=== PATIENT | female | born 1955 | race Caucasian/White ===

== ENCOUNTER 2017-05-26 13:42 | Day surgery (SDC) | payer OTHER, SELFPAY ==
--- NOTE | 2017-05-26 05:51 | RAD_ITS ---
STUDY: X-RAY - ABDOMEN/PELVIS REASON FOR EXAM: Female, 61 years old. History of renal calculi. Metastatic bone disease. TECHNIQUE: Two AP supine views of the abdomen and pelvis. COMPARISON: None. FINDINGS: Normal visualized lung bases. There is an abundance of fecal material throughout the colon. The visualized liver, spleen and kidneys are grossly normal in size and morphology. Normal soft tissue structures. Diffuse lytic and sclerotic metastasis involving the visualized lumbar spine as well as the pelvic bones. RAD/Abdomen Single View IMPRESSION: Diffuse bony metastasis. Large amount of fecal material in the colon. No abnormal calcification is seen overlying the kidneys or course of the ureters. Electronically Signed: Geremias Ferrer MD at 14:27 EDT Tel [phone], Service support ,
[2017-05-26 14:48] VITALS: BP 128/55; PULSE 68; RESP 16; TEMP 36.6; O2SAT 97; BMI 24.7
--- NOTE | 2017-05-26 16:00 | CALC_PTH ---
PATIENT: SOFIA ARREDONDO LOC: [facility] – [place] U#:[id number] AGE/SX: 61/F ROOM: RE05/26/[address]: Dr. Lavelle Felix MD : 1955 BED: DIS: 05/26/2017 SPEC #: [id number] RECD: 05/29/17 09:01 STATUS: ISAAC PRIYANKA #: [id number] MARILEE: 05/26/17 16:[address]: Lavelle Felix DEPT: SURGICAL PATHOLOGY RECD BY: Charlie Diallo ENTERED: 05/29/17 10:11 SP TYPE: Calculi OTHR DR: Sindi Resendez, PORTRAIT STUDIO PHOTOGRAPHER-C Tissues: CALCULI Procedures: Surgery Specimen Level I HEADER OPERATION: Cystoscopy, right ureteroscopy, basket extraction stone PRE-OP DIAGNOSIS: Right ureteral calculi TISSUE SUBMITTED: Right ureteral stone GROSS DIAGNOSIS A fragment of stone, clinically right ureteral stone, submitted for analysis. SJ:kadeem 05/30/17 COMMENT The calculus is submitted in its entirety for chemical stone analysis. The results from this study will be reported separately. GROSS DESCRIPTION Received in fixative is one container labeled with the patient's name and designated ureteral stone. The specimen consists of a single, chalky yellow calculus measuring 0.5 x 0.3 x 0.1 cm. The calculus is submitted in its entirety for chemical stone analysis. / AM:kadeem 05/29/17 CPT: 56746
[2017-05-26] MEDS: Cefazolin 2 GM in 0.9% Normal Saline 100 ML IV (16:34)
--- NOTE | 2017-05-26 16:54 | PCM.DC.URO ---
Discharge Diet: Light diet - advance as tolerated Discharge Activity: Return to Normal Activity Call your doctor if you observe: Uncontrolled pain Allergies/Adverse Reactions: Allergies Sulfa (Sulfonamide Antibiotics) Allergy (Verified 05/25/17 14:32) Itching Medications to take at Discharge Calcium Carbonate/Vitamin D3 [Calcium 500-Vit D3 600 Tablet] 1 each PO DAILY 05/25/17 Letrozole [Femara] 2.5 mg PO DAILY 05/25/17 Naproxen Sodium [Aleve] 220 mg PO PRN PRN 05/25/17 Omeprazole 40 mg PO DAILY 05/25/17 Palbociclib [Ibrance] 125 mg PO DAILY 05/25/17 Hydrocodone/Acetaminophen [[place] 5-325 Tablet] 1 ea PO Q4H PRN PRN 5 Days #14 tab 05/26/17 The following prescriptions were given: Hydrocodone/Acetaminophen [[place] 5-325 Tablet] 1 ea PO Q4H PRN PRN 5 Days #14 tab PRN Reason: Pain Primary Care Physician: Sindi Resendez [Primary Care Provider] - Please Follow Up With: Lavelle Felix MD When: June 15 at 9:30 am
--- NOTE | 2017-05-26 16:57 | PCM.OPRPT ---
Report of Operation Date of Procedure: 05/26/17 Pre-Operative Diagnosis: Right ureteral calculi, distal Post-Operative Diagnosis: Same Surgery/Procedure Performed:: Cystoscopy, right ureteroscopy basket extraction of stone. Description of Surgical Findings:: 61-year-old female taken back to the operating room at the smooth induction of general anesthesia we looked around with the fluoroscopy scope but could not identify any stones in the distal ureter on CAT scan she had a stone was seen in the distal ureter just recently. She was placed in dorsal lithotomy position the urethra and vaginal area were prepped and draped in usual sterile fashion went into the bladder and identified the right ureter advanced a wire up the next to the wire went up with a ureteroscope was able to get into the distal ureter in atraumatic fashion I then went up and identified a stone in the distal ureter I used the basket and basket extracted the stone this was sent off as specimen. At this point then the bladder was drained decided not to leave the stent as it was a distal stone the stone was gone and urine was draining fairly easily from the right kidney and ureter. Patient anesthetic was reversed taken back to PACU in good condition will see her back in a few weeks for checkup. Type of Anesthesia:: General Drains: none - Admit VTE Documentation VTE Present on Admission: No VTE Mechan Device Prophylaxis: SCD's VTE Pharm Prophylaxis ordered?: No Reason prophylaxis not ordered:: Treatment Not Indicated
[2017-05-26 16:59] VITALS: BP 128/55; BP 130/67; PULSE 98; RESP 16; TEMP 37; O2SAT 97
[2017-05-26 17:15] VITALS: BP 128/55; BP 131/66; PULSE 88; RESP 16; O2SAT 97
[2017-05-26 17:30] VITALS: BP 128/55; BP 129/72; PULSE 87; RESP 16; O2SAT 97
[2017-05-26 17:44] VITALS: BP 128/55; BP 129/65; PULSE 79; RESP 16; TEMP 36.9; O2SAT 98
[2017-05-26 18:20] VITALS: BP 128/55
[2017-06-07 20:08] LABS: Ca Oxalate, Monohydrate 20 % (.); Calcium Phosphate 80 % (.); Size 5x4x1 mm (.)
== END 2017-05-26 18:30 | disposition home or self-care (01) ==
LOC: SDC 13:42 → AC 14:02
PROVIDERS: Family Provider Nurse Practitioner; PCP Nurse Practitioner; Visit Provider Urology
PROC: (CPT 50590; principal; 2017-05-26 15:50)
DX: N13.2 Hydronephrosis with renal and ureteral calculous obstruction (principal); Z87.442 Personal history of urinary calculi; Z79.899 Other long term (current) drug therapy; K21.9 Gastro-esophageal reflux disease without esophagitis; G25.81 Restless legs syndrome
CPT/HCPCS: 52352; 74018; 82360; 88300; J7120; C1769; J2405

== ENCOUNTER → 2017-06-29 08:16 | Outpatient (CLI) | payer OTHER, SELFPAY ==
--- NOTE | 2017-06-29 08:18 | BI_ITS ---
MAMMOGRAPHY - UNILATERAL SCREENING: LEFT BREAST REASON FOR EXAM: Female, 61 years old. Routine annual screening examination (unilateral). PERTINENT HISTORY: Personal history of breast cancer. Prior right mastectomy with chemotherapy and radiation therapy. Remote bilateral excisional breast biopsies. TECHNIQUE: Digital unilateral breast oskar (3D mammographic acquisition) in the CC and MLO projections. 2-D mediolateral oblique (MLO) and craniocaudad (CC) views of both breasts were obtained. CAD: Full Field Digital Mammography with Computer Added Detection was performed. COMPARISON: Comparison is made with prior study dated June 01, 2016 and May 18, 2015. FINDINGS: Breast Composition: The breasts are heterogeneously dense, which may obscure small masses. There are no dominant masses or suspicious calcifications. No other significant abnormalities are identified. There has been no significant change since the prior study. BI/UNILAT LT SCRN W/CAD IMPRESSION: Stable unilateral screening mammogram. Yearly follow-up mammogram recommended. (A) ASSESSMENT CATEGORY: BIRADS Category 1: Negative. A letter regarding these results will be sent to the patient by the facility within 30 days. Approximately 10% of breast cancers are not detected by mammography. A normal mammogram should not delay biopsy of a clinically suspicious abnormality. [id number] Electronically Signed: Geremias Ferrer MD at 9:50 EDT Tel [phone], Service support ,
== END ==
PROVIDERS: Family Provider Nurse Practitioner; PCP Nurse Practitioner; Visit Provider Internal Medicine Hematology & Oncology
DX: Z12.31 Encounter for screening mammogram for malignant neoplasm of breast (principal); C50.011 Malignant neoplasm of nipple and areola, right female breast; Z17.0 Estrogen receptor positive status [ER+]
CPT/HCPCS: 77061; 77065; 77067; G0279

== ENCOUNTER → 2020-12-11 | Outpatient (CLI) | payer OTHER, SELFPAY ==
--- NOTE | 2020-12-11 | IMM_PTH ---
PATIENT: SOFIA ARREDONDO LOC: [facility] U#:[id number] AGE/SX: 65/F ROOM: RE12/11/[address]: Dr. Wolf Torres MD : 1955 BED: DIS: 12/11/2020 SPEC #: [id number] RECD: 12/14/20 12:53 STATUS: SOUShaila REQ #: [id number] MARILEE: 12/11/20 00:[address]: Wolf Torres DEPT: IMMUNOHISTOCHEMISTRY RECD BY: Sally Whiting ENTERED: 12/14/20 12:55 SP TYPE: IMMUNO OTHR DR: Sindi Resendez, NURSE CASE MANAGEMENT-C Tissues: Axilla, NOS Procedures: RCC (add) NAPSIN A (add) CK20 (add) CK5-6 (add) CK7 (add) CK8 (add) E-CAD (add) HEP PAR (add) HER2 STEPHON (add) MAMM (add) NV (add) TTF1 (add) Pankeratin (add) GATA3 (add) P40 (add) ER (initial) PHYSICIAN & INSTITUTION [place] [phone] SPECIMEN INFORMATION: Tissue Source: Right axillary lesion Clinical Info: Right axillary lesion Specimen Number: [id number] CPT code: 35684, 47891 x15 METHODOLOGY: Deparaffinized sections of prefer/formalin-fixed tissue or PAP/DQ stained slides are incubated with monoclonal/polyclonal antibodies/oligonucleotide probes. Localization is made via biotin free immunoperoxidase method. Appropriate controls are performed and reacted as expected. Results on target cell population are indicated in the following table: RESULTS: ANTIBODY / CLONE RESULT ER (6F11) positive (83%, moderate intensity) NV (1E2) positive (>95%, strong intensity) Her-2neu (CB11) negative (0) E-Cad (ECH-6) negative Mammaglobin (31A5) positive, focal GATA3 (L50-823) positive AE1-3 (AE1/AE3/PCK26) positive CK7 (OV-TL12/30) positive CK8 (07johyI43) positive CK20 (KS20.8) negative TTF-1 (8G7G3/1) negative Napsin A (Rabbit Polyclonal) negative HepPar (OCh1E5) negative RCC (PN-15) negative CK5-6 (D5 & 1684) negative P40 (BC28) negative These tests were developed and their performance characteristics determined by [facility]. They may not have been cleared or approved by the U.S. Food and Drug Administration. The FDA has determined that such clearance or approval is not necessary. The above immunohistochemical/dualISH markers are ordered and reviewed by the Pathologist. INTERPRETATION: Right axillary lesion, excisional biopsy: Invasive carcinoma, involving dermis, consistent with breast primary, invasive lobular carcinoma. SJ:kadeem 12/15/2020
--- NOTE | 2020-12-11 09:45 | AXNB_PTH ---
PATIENT: SOFIA ARREDONDO LOC: [facility] U#:[id number] AGE/SX: 65/F ROOM: RE12/11/[address]: Dr. Wolf Torres MD : 1955 BED: DIS: 12/11/2020 SPEC #: [id number] RECD: 12/11/20 11:25 STATUS: ISAAC REDioni #: [id number] MARILEE: 12/11/20 09:[address]: Wolf Torres DEPT: SURGICAL PATHOLOGY RECD BY: Joanne Wu ENTERED: 12/11/20 12:06 SP TYPE: AX NODE BX OTHR DR: Sindi Resendez, GARMENT PRESSER-C Tissues: Axillary lymph node, NOS Procedures: Surgery Specimen Level IV HEADER OPERATION: Excision right axillary lesion PRE-OP DIAGNOSIS: Right axillary lesion TISSUE SUBMITTED: Right axillary lesion MICROSCOPIC DIAGNOSIS Right axillary lesion, excisional biopsy: Invasive carcinoma involving the dermis, consistent with breast primary, invasive lobular carcinoma. See comment. SJ:rg 12/14/2020 COMMENT Immunohistochemistry ([id number]) supports the above diagnosis. ER/RI/Cbv4hbd studies are being performed on sections of tumor and the results from this study will be reported separately ([id number]). Tumor is present focally at the peripheral margin of the specimen. Please make reference to previous specimens ([id number]) right axillary skin lesion, excisional biopsy with diagnosis of ?invasive carcinoma involving dermis consistent with breast primary, invasive lobular carcinoma? and ([id number]) right breast core biopsy and (C63-2463) right breast mastectomy with diagnosis of ?invasive lobular carcinoma.? Case has been reviewed in consultation with Dr. Garrido who concurs with the above diagnosis. IDC:AM MICROSCOPIC DESCRIPTION Slides are reviewed. GROSS DESCRIPTION Received in fixative is one container labeled with the patient's name and designated right axilla. The specimen consists of a piece of skin with underlying tissue measuring 1.5 x 1 cm and up to 0.7 cm in thickness. The specimen is inked, serially sectioned and submitted entirely in one cassette. / IQRA:kadeem 12/11/20 TC:0 CPT: 81096
== END | disposition home or self-care (01) ==
LOC: LABSPEC 11:44
PROVIDERS: PCP Nurse Practitioner; Referring Provider Surgery; Visit Provider Surgery
DX: C77.3 Secondary and unspecified malignant neoplasm of axilla and upper limb lymph nodes (principal)
CPT/HCPCS: 88305; 88341; 88342

== ENCOUNTER 2021-01-12 09:30 | Outpatient (RCR) | payer OTHER, SELFPAY | END 2021-01-12 23:59 | disposition home or self-care (01) | LOC: NS 09:30 | PROVIDERS: PCP Nurse Practitioner; Visit Provider Nurse Practitioner | DX: Z71.3 Dietary counseling and surveillance (principal); E66.9 Obesity, unspecified; Z68.28 Body mass index [BMI] 28.0-28.9, adult; R73.03 Prediabetes | CPT/HCPCS: 97802; 97803 ==

== ENCOUNTER 2021-01-26 09:28 | Outpatient (RCR) | payer OTHER, SELFPAY | END 2021-02-12 23:59 | LOC: NS 09:28 | PROVIDERS: PCP Nurse Practitioner; Visit Provider Nurse Practitioner | DX: Z71.3 Dietary counseling and surveillance (principal); E66.9 Obesity, unspecified; Z68.28 Body mass index [BMI] 28.0-28.9, adult; R73.03 Prediabetes | CPT/HCPCS: 97803 ==

== ENCOUNTER 2021-02-19 09:19 | Day surgery (SDC) | payer OTHER, SELFPAY ==
[2021-02-19] VITALS (7 sets, daily range): BP systolic 116–133; BP diastolic 62–72; PULSE 57–85; RESP 14–16; TEMP 36.1–36.6; O2SAT 97–100; BMI 28.5
[2021-02-19] MEDS: Lactated Ringers 1,000 ML 15 ML IV (10:11)
--- NOTE | 2021-02-19 10:40 | PCM.HP.BLA ---
History and Physical Date of Admission: 02/19/21 Intake Visit Reasons: PORT PLACEMENT Chief Complaint: port placement Financial Coordinator Required: No Is patient in pain?: No Allergies Sulfa (Sulfonamide Antibiotics) Allergy (Verified 02/15/21 14:26) Itching Medications calcium carbonate-vitamin D3 1 ea PO DAILY 05/25/17 [History Confirmed 02/15/21] ascorbate calcium (vitamin C) 500 mg tablet 500 mg PO DAILY 12/11/20 [History Confirmed 02/15/21] vitamin B complex 1 tab PO DAILY 12/11/20 [History Confirmed 02/15/21] vitamins A,C,B-xbte-mrfihh 14,320 unit-226 mg-200 unit capsule 1 cap PO BID 12/11/20 [History Confirmed 02/15/21] zinc acetate 50 mg (zinc) capsule 50 mg PO DAILY 12/11/20 [History Confirmed 02/15/21] capecitabine 150 mg tablet 150 mg PO BID 02/15/21 [History Confirmed 02/15/21] cranberry 400 mg capsule 400 mg PO DAILY 02/15/21 [History Confirmed 02/15/21] PFSH Medical History Breast cancer Surgical History S/P foot surgery S/P hysterectomy S/P knee surgery S/P right mastectomy S/P shoulder surgery Social History Smoking Status: Never smoker alcohol intake: never HPI HPI HPI: SOFIA ARREDONDO, is a 65 F who presents to the office today for surgical consultation today regarding placement of a port to facilitate chemotherapy. The patient is referred by oncologist Dr. Arias Alejo and a written copy of my surgical consult recommendations will return to him. It is requested that a port be placed prior to the week of February 22. The patient has a history of a right mastectomy with sentinel node biopsy April 25, 2012 for a 1.7 cm invasive lobular carcinoma the right breast. 6 sentinel lymph nodes were negative initially and then on final evaluation were noted to be positive with 3 having micrometastatic disease and 3 macro macro metastatic disease. She underwent a axillary lymph node dissection and 13 additional lymph nodes were all positive. December 2015 she was detected is having bone metastasis. More recently she had a cutaneous nodule the right axilla which was excised and is consistent with invasive carcinoma consistent with a breast primary of lobular carcinoma. She has previously had a left internal jugular port placed. That has subsequently been removed. ROS General General: Yes breast cancer; No weight change, appetite, fatigue, colon cancer or weakness HEENT HEENT: No difficulty swallowing, eye injury, eye surgery, swollen glands or hoarseness Endo Endocrine: No thyroid disease, diabetes mellitus, thyroid cancer, Hair loss, heat intolerance or cold intolerance Skin Skin: No rash or changing moles Breast Breast: No left breast lump, right breast lump, nipple discharge, breast pain, abnormal mammogram, abnormal US or breast enlargement Musc Musculoskeletal: No back problems, arthritis, rheumatoid arthritis, gout or joint pain Cardio Cardiovascular: No murmur, pacemaker, heart disease, atrial fibrillation, high blood pressure, heart attack, heart stent, palpitations, shortness of breat with exertion or chest pain Psych Psychiatric: No depression, anxiety or hearing voices Resp Respiratory: No shortness of breath, No sleep apnea, No cough, No COPD, No asthma, No emphysema and No wheezing Gastro Gastrointestinal: No abdominal pain, No nausea or vomiting, No diarrhea, No constipation, No blood in stool, No acid reflux, No hemorrhoids, No ulcers, No gallbladder problem and No black,tarry stools [place]io Hematologic: No blood thinners, No blood disorders, No bleeding, No anemia and No blood clots Neuro Neurologic: No system reviewed and no additional complaints, except as documented, No as per HPI, No abnormal gait, No abnormal hearing, No abnormal movements, No abnormal speech, No behavioral changes, No burning sensations, No confusion, No convulsions, No disequilibrium, No dizziness, No localized weakness, No frequent falls, No headache(s), No lack of coordination, No loss of vision, No memory loss, No numbness, No other visual disturbances, No radicular pain, No restless legs, No sensory deficit, No syncope, No tingling, No tremor(s), No weakness and No other Exam Const General: cooperative, healthy appearing, comfortable and no acute distress Nutritional Appearance: average body habitus Orientation: alert and awake [facility] Head: normal to inspection Neck Neck: normal visual inspection Other: Supple, nontender, no cervical adenopathy Chest Other: Right mastectomy, left upper chest port site well-healed with some soft tissue loss Resp Effort & Inspection: normal respiratory effort Auscultation: clear to auscultation bilaterally Cardio Rate: regular rate Rhythm: regular rhythm GI Inspection: normal to inspection Palpation: soft Neuro General: patient alert, patient awake and patient oriented x3 Extrem General: normal to inspection Psych Appearance: grossly normal Assessment and Plan Assessment and Plan (1) Breast cancer: Status: Acute Plan - Dr. Wolf Torres MD: Metastatic breast cancer need of IV access for chemotherapy. I propose for the patient a left internal jugular port placement possible right. Described the technique, benefit, risk and alternatives. She has had an opportunity to ask any questions answered. We will schedule and expedite her care. I very much appreciate the kind opportunity to continue to assist with her surgical management Copy: Dr. Arias Torres M.D., F.A.C.S. I have re-examined the patient. There are no clinical changes since date of exam.
--- NOTE | 2021-02-19 10:40 | EX.PCM.DISCH ---
Discharge Instructions Procedure Port-A-Cath Diet Discharge Diet: No restrictions (Pain medication may cause nausea. You should typically eat light foods as you take your pain medication.) Activity Discharge Activity: Return to Normal Activity and May Shower (Leave the bandage on for 2-3 days. When you remove the bandage, leave the steri-strips intact until they fall off.) Additional Activity Instructions:: May not drive, work with heavy equipment, or sign legal documents for [address]. [address] if you are no longer taking narcotic pain medications. You may drive when you are no longer taking pain medications. Dressing / Incision Additional Dressing/Incision Instructions:: Leave the bandage on for 2-3 days. When you remove the bandage, leave the steri-strips intact until they fall off. Follow Up Care Please Follow Up With: Wolf Torres MD When: Call [phone] to make an appointment to be seen in 7 days. Test Results: Test results from this visit will be discussed in further detail at your follow-up appointment, if applicable. Discharge Plan Admission Attending Provider: Wolf Torres Primary Care Provider: Sindi Resendez NP Discharge Orders/Prescriptions Prescriptions: No Action capecitabine [Xeloda] 150 mg tablet 2,000 mg PO BID RF: 0 calcium carbonate-vitamin D3 1 EACH tablet 1 ea PO DAILY RF: 0 pyridoxine (vitamin B6) [Vitamin B-6] 100 mg Tablet 100 mg PO DAILY RF: 0 Ocuvite Tablet 1 tab PO DAILY RF: 0 calcium carb-D3-mag ox-zinc ox 333 mg-133 unit -133 mg-5 mg Tablet 1 tab PO DAILY RF: 0 Probiotic 5 billion cell Capsule, Sprinkle 1 cap PO DAILY RF: 0
--- NOTE | 2021-02-19 11:32 | RAD_ITS ---
STUDY: X-RAY CHEST REASON FOR EXAM: Female, 65 years old. Port placement. TECHNIQUE: Single AP portable view of the chest. COMPARISON: Comparison is made with prior examination dated 05/21/2012. FINDINGS: A right-sided portacatheter has been placed. The tip is at the junction of the superior vena cava and right atrium. The patient is status post right mastectomy and right axillary node dissection. The lungs are clear and expanded. There is no demonstrated pleural abnormality. Normal size heart. Normal mediastinum and jackie. Normal visualized pulmonary arteries. There is atherosclerotic calcification of the aortic arch with tortuosity. Normal visualized thoracic spine. Normal visualized ribs, clavicles, and shoulders. There is no demonstrated abnormality of the visualized soft tissue structures of the upper abdomen. RAD/CXR for Line Placement IMPRESSION: The tip of the left portacatheter is at the junction of the superior vena cava and right atrium. Status post right mastectomy and right axillary rashmi dissection. Electronically Signed: Geremias Ferrer MD at 12:51 EST , Service support ,
[2021-02-19] MEDS: Bupivacaine Mpf 0.5% 30 ML VIAL (12:00)
[2021-02-19] MEDS: Lidocaine 1% (30 ml sdv) 30 ML Vial (12:00)
--- NOTE | 2021-02-19 12:18 | OP.PCM_ITS ---
Problems Associated Problem List Diagnoses (1) Breast cancer: Report of Operation Date of Procedure: 02/19/21 Pre-Operative Diagnosis: Metastatic breast cancer Post-Operative Diagnosis: Same Surgery/Procedure Performed:: Left internal jugular six [place] PowerPort placement Reference [id number] Lot number [id number], expiry date 04/12/2022 Description of Surgical Findings:: Timeout informed consent was obtained. 65-year-old female was taken to the operating placed on the table underwent monitored anesthesia care. The left neck and chest were sterilely prepped and draped. Ancef 2 g were given intravenously. 1% lidocaine mixed 50-50 with 0.5% Marcaine was used as a local anesthetic. A total of 13 cc was used. Ultrasound was used to identify the left internal jugular vein local was instilled under ultrasound guidance. Micropuncture needle inserted micropuncture wire inserted micropuncture sheath inserted 035 J-wire was inserted. Local was instilled down upon the left chest wall. The previous port site transverse incision was elliptically excised. The scar was inspected and discarded. The subcutaneous port was created with electrocautery. The tubing was tunneled from the neck to the chest site. In the sheath dilator was placed over the wire the dilator and wire removed the catheters advanced through the sheath the sheath was split the catheter was positioned to be within the right atrium close to the atrial vena cava junction. It was then amputated and secured to the port with the port attachment device. The port was placed in the pocket and secured there with 2-0 silk. The port site was closed with interrupted 3-0 Vicryl subdermal stitch. The next closed with a #5-0 Vicryl subdermal stitch. The port was accessed and aspirated very easily was flushed with saline and two and half cc cc of heparinized saline. Steri-Strips Telfa OpSite dressings applied. Sponge and instrument and needle counts were reported to the surgeon to be correct. Specimens none. Drains none. Blood loss minimal. The patient was taken to the recovery area in satisfactory addition apparent complication. Stat portable chest x-ray pending. Wolf Torres M.D., F.A.C.S. Surgeon: Wolf Torres Type of Anesthesia: Local MAC Anesthesiologist: Cory Mcguire
== END 2021-02-19 23:59 | disposition home or self-care (01) ==
LOC: SDC 09:20 → AC 09:21
PROVIDERS: PCP Nurse Practitioner; Referring Provider Nurse Practitioner; Visit Provider Surgery
PROC: (CPT 36561; principal; 2021-02-19 11:00)
DX: Z45.2 Encounter for adjustment and management of vascular access device (principal); C79.51 Secondary malignant neoplasm of bone; C77.3 Secondary and unspecified malignant neoplasm of axilla and upper limb lymph nodes; C50.911 Malignant neoplasm of unspecified site of right female breast
CPT/HCPCS: 36561; 00532; 71045; 77001; J7120; J2405

== ENCOUNTER 2021-03-09 11:00 | Outpatient (RCR) | payer OTHER, SELFPAY | END 2021-03-15 23:59 | LOC: NS 11:00 | PROVIDERS: PCP Nurse Practitioner; Visit Provider Nurse Practitioner | DX: Z71.3 Dietary counseling and surveillance (principal); R73.03 Prediabetes; E66.9 Obesity, unspecified; Z68.28 Body mass index [BMI] 28.0-28.9, adult | CPT/HCPCS: 97803 ==

== ENCOUNTER 2021-03-30 09:59 | Outpatient (RCR) | payer OTHER, SELFPAY | END 2021-04-12 23:59 | LOC: NS 09:59 | PROVIDERS: PCP Nurse Practitioner; Referring Provider Nurse Practitioner; Visit Provider Nurse Practitioner | DX: Z71.3 Dietary counseling and surveillance (principal); E66.9 Obesity, unspecified; R73.03 Prediabetes; Z68.28 Body mass index [BMI] 28.0-28.9, adult | CPT/HCPCS: 97803 ==

== ENCOUNTER 2021-05-03 09:57 | Outpatient (RCR) | payer OTHER, SELFPAY | END 2021-05-03 11:56 | disposition home or self-care (01) | LOC: NS 09:57 | PROVIDERS: PCP Nurse Practitioner; Referring Provider Nurse Practitioner; Visit Provider Nurse Practitioner | DX: Z71.3 Dietary counseling and surveillance (principal); E66.9 Obesity, unspecified; R73.03 Prediabetes; Z68.28 Body mass index [BMI] 28.0-28.9, adult | CPT/HCPCS: 97803 ==

== ENCOUNTER 2023-12-30 10:48 | Emergency (ER) | payer MEDICARE, OTHER, SELFPAY ==
[2023-12-30 10:49] VITALS: BP 154/86; PULSE 78; RESP 16; TEMP 36.6; O2SAT 98; BMI 27.6
[2023-12-30 10:50] VITALS: BP 154/86; PULSE 78; RESP 16; TEMP 36.6; O2SAT 98
--- NOTE | 2023-12-30 11:36 | CT_ITS ---
HISTORY: Pain. TECHNIQUE: Helically acquired images were obtained of the abdomen and pelvis without oral or IV contrast. A radiation dose optimization technique was used for this scan. 436 images. COMPARISON: 02/25/2016 FINDINGS: LOWER CHEST: Lung bases unremarkable. Small right and left paraspinal perineural cysts incidentally noted. BOWEL: Bowel including appendix nondilated. Long segment of descending colonic wall thickening with mild pericolonic stranding. Colonic diverticulosis without focal pericolonic inflammatory change. PERITONEUM: No significant free fluid. LIVER: Multiple hepatic cysts measuring up to 4.9 cm in the right lobe, previously 2.8 cm. GALLBLADDER/BILIARY TREE: Small calcified gallstones. SPLEEN/PANCREAS/ADRENAL GLANDS: Nonenlarged. KIDNEYS AND URETERS: No nephrolithiasis or obstructing ureteral calculus. Probable bilateral renal sinus cysts again seen. VESSELS: No abdominal aortic aneurysm. Mild atherosclerosis. 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 PELVIC ORGANS: Absent uterus. BONES: Diffuse sclerotic lesions again seen. CT/Abdomen/Pelvis without Cont IMPRESSION: Long segment of descending colonic wall thickening, concerning for acute colitis. Colonic diverticulosis without acute diverticulitis. Increased size of hepatic cysts. Cholelithiasis. Chronic diffuse osteoblastic metastases. Electronically Signed: Tasia Alexandre MD at 12:55 EST ,
--- NOTE | 2023-12-30 11:37 | EDS_ITS ---
HPI HPI - GI History of Present Illness Chief Complaint: GI Bleed Narrative Narrative: 68-year-old female past medical history of stage IV breast carcinoma, currently on chemotherapy presents with rectal bleeding that began last evening. She relates history that she was outside all day, and had the sensation that she had to have a bowel movement. She got home, walked her dog, and when she went to the bathroom, had an episode of bright red blood per rectum. She had felt near syncopal at that time last evening as well. She denies any chest pain or shortness of breath. She is undergoing chemotherapy infusions, gets them once a week, then has a rest week. Her last infusion was on Monday, and she is not due for another infusion for the next 2 weeks. She presents because of the rectal bleeding, and because of the lightheadedness that she experienced last evening. She states that her carcinoma was originally diagnosed as breast carcinoma, but it has spread everywhere. This includes to her abdomen she states. [facility] Medical History Wears glasses Post-menopausal Cancer Arthritis Kidney stones History of hiatal hernia Non-smoker Shortness of breath on exertion History of edema Breast cancer Home Medications ?Medication ?Instructions ?Recorded ?Last Taken ?Type calcium 500 mg (as 1 ea PO DAILY 05/25/17 Unknown History carbonate)-vitamin D3 15 mcg (600 unit) tablet capecitabine 150 mg tablet (Xeloda) 2,000 mg PO BID 02/15/21 Unknown History Lactobacil.acidophilus-Bifido.animalis 1 cap PO DAILY 02/17/21 Unknown History 5 billion cell sprinkle capsule (Probiotic) calcium 333 mg-vit D3 133 1 tab PO DAILY 02/17/21 Unknown History unit-magnesium 133 mg-zinc 5 mg tablet pyridoxine (vitamin B6) 100 mg 100 mg PO DAILY 02/17/21 Unknown History tablet (Vitamin B-6) vitamin A-vitamin C-vit E-min 1 tab PO DAILY 02/17/21 Unknown History tablet hydrocodone-acetaminophen 5-325mg 1 tab PO Q6H PRN pain 2 days #5 02/19/21 Unknown Rx 5mg-325mg tabs ciprofloxacin HCl 500 mg tablet 500 mg PO BID #14 tabs 12/30/23 Unknown Rx (Cipro) metronidazole 500 mg tablet 500 mg PO TID #21 tabs 12/30/23 Unknown Rx Allergy/AdvReac Type Severity Reaction Status Date / Time iodine Allergy Other Verified 12/30/23 10:49 Sulfa (Sulfonamide Allergy Itching Verified 12/30/23 10:49 Antibiotics) Surgical History Hx of cystoscopy S/P foot surgery S/P hysterectomy S/P shoulder surgery S/P knee surgery S/P right mastectomy Social History Smoking Status: Never smoker alcohol intake: never ROS ROS ED ROS Narrative Constitutional: No fever, no chills. HEENT: No sore throat. No neck pain. No loss of vision. No rhinorrhea. Cardiovascular: No chest pain. No palpitations. No pedal edema. Respiratory: No cough, no shortness of breath. Abdominal: Mild abdominal discomfort abdominal pain. No nausea. No vomiting. No hematemesis. Bright red blood per rectum yesterday evening. Bleeding stopped with most recent bowel movement today. Genitourinary: No dysuria. No hematuria. Musculoskeletal: No myalgias. No arthralgias. Neurologic: No headaches. No dizziness. Positive lightheadedness last evening. Skin: No rash. No change in color. Psychiatric: No depression. No anxiety. EXAM Physical Exam Const Vital Signs: 12/30/23 10:49 12/30/23 10:50 12/30/23 12:24 Temperature 97.9 F 97.9 F Temperature Source Oral Oral Pulse Rate 78 78 Pulse Rate [Lying] 68 Respiratory Rate 16 16 Blood Pressure 154/86 H 154/86 H Blood Pressure [Lying] 156/62 H Blood Pressure Mean 108 108 Blood Pressure Mean [Lying] 93 Pulse Ox 98 98 Oxygen Delivery Method Room Air 12/30/23 12:27 12/30/23 12:29 12/30/23 12:29 Temperature Temperature Source Pulse Rate 70 Pulse Rate [Lying] 70 95 Respiratory Rate 16 Blood Pressure 153/74 H Blood Pressure [Lying] 153/74 H 157/87 H Blood Pressure Mean 100 Blood Pressure Mean [Lying] 100 110 Pulse Ox 97 Oxygen Delivery Method Room Air 12/30/23 14:25 Temperature Temperature Source Pulse Rate 68 Pulse Rate [Lying] Respiratory Rate 16 Blood Pressure 154/68 H Blood Pressure [Lying] Blood Pressure Mean 96 Blood Pressure Mean [Lying] Pulse Ox 100 Oxygen Delivery Method Room Air MDM MDM MDM Narrative Medical decision making narrative: Differential diagnosis includes hemorrhoidal bleeding versus diverticular bleeding versus colonic mass bleeding. Given her near syncope, also in the differential diagnosis would be anemia versus electrolyte imbalance versus dehydration. She not tachycardic here. Additionally, her bleeding has ceased. Initially, she declines rectal examination/anoscopy. I find this reasonable because her bleeding has ceased, but it was bright red blood per rectum. Baseline laboratories will be obtained as well as CT without contrast given an iodine allergy. I reviewed her laboratory work and she is neutropenic at 4.3 consistent with her recent chemotherapy. Hemoglobin is 9.9, down from previous, but this was over 4 years ago when compared to prior labs. Potassium slightly low at 3.3 which I think is nonspecific, BUN of 10 and creatinine 0.68 so I doubt dehydration or upper GI bleeding. LFTs grossly unremarkable. CT of the abdomen and pelvis without contrast does show mild thickening of the colonic wall of the descending colon. There is concern for colitis. I do not feel this is an ischemic colitis, as she does not have pain out of proportion, and does not really have tenderness in the left flank. Her main concern was the rectal bleeding which can happen with her colitis and she also has diverticulosis. The bleeding has stopped. Orthostatics were performed and she had a slight increase in her heart rate so she was bolused normal saline intravenously. She was given her first doses of Cipro and Flagyl here in the emergency department and prescriptions were written to take over the next week. At this point in time, I discussed observation or admission with her and through shared decision making, she would like to try outpatient medications. I feel she be discharged to follow-up with gastroenterology and/or hematology oncology or her primary care provider. Return instructions to the emergency department were reviewed. Disposition is discharged home in stable condition. History & Record Review Discussion w/independent historian: Patient Additional record(s) reviewed:: Prior labs Lab Data Attestation: I reviewed the patient's lab results. Labs: Laboratory Results - last 24 hr 12/30/23 11:46 WBC 4.3 L RBC 3.66 L Hgb 9.9 L Hct 31.7 L MCV 86.6 MCH 27.0 MCHC 31.2 L RDW Std Deviation 57.5 H RDW Coeff of Elder 18.5 H Plt Count 380 MPV 9.8 Immature Gran % (Auto) 0.200 Neut % (Auto) 57.7 Lymph % (Auto) 34.4 [place] % (Auto) 5.6 Eos % (Auto) 1.4 Baso % (Auto) 0.7 Absolute Neuts (auto) 2.5 Absolute Lymphs (auto) 1.46 Nucleated RBC % 0 Sodium 140 Potassium 3.3 L Chloride 107 Carbon Dioxide 28.0 Anion Gap 5 BUN 10 Creatinine 0.68 Estim Creat Clear Calc 64.92 Est GFR (MDRD) Af Amer 111 Est GFR (MDRD) Non-Af 92 BUN/Creatinine Ratio 14.8 Glucose 109 H Calcium 8.2 L Total Bilirubin 1.30 H AST 16 ALT 22 Alkaline Phosphatase 58 Total Protein 6.4 Albumin 3.2 Globulin 3.2 Albumin/Globulin Ratio 1.0 Radiography Diagnostic Testing: Clinical Impression(s) from Imaging Studies Abdomen/Pelvis CT 12/30/23 11:36 IMPRESSION: Long segment of descending colonic wall thickening, concerning for acute colitis. Colonic diverticulosis without acute diverticulitis. Increased size of hepatic cysts. Cholelithiasis. Chronic diffuse osteoblastic metastases. Electronically Signed: Tasia Alexandre MD at 12:55 EST , Discharge Plan Triage Chief Complaint: GI Bleed ED Provider: Paul Larson Dx/Rx/DC Orders Clinical Impression: Colitis, Rectal bleeding Instructions: ED Understanding Colitis, ED Lower GI Bleeding (Stable) Prescriptions: New ciprofloxacin HCl [Cipro] 500 mg tablet 500 mg PO BID Qty: 14 0RF metronidazole 500 mg tablet 500 mg PO TID Qty: 21 0RF No Action capecitabine [Xeloda] 150 mg tablet 2,000 mg PO BID Rx Instructions: administer with 3 - 500 mg tabs for each dose; must give with water 30 minutes after a meal calcium carbonate-vitamin D3 1 EACH tablet 1 ea PO DAILY pyridoxine (vitamin B6) [Vitamin B-6] 100 mg Tablet 100 mg PO DAILY vitamin A-vitamin C-vit E-min Tablet 1 tab PO DAILY calcium carb-D3-mag ox-zinc ox 333 mg-133 unit -133 mg-5 mg Tablet 1 tab PO DAILY Probiotic 5 billion cell Capsule, Sprinkle 1 cap PO DAILY hydrocodone-acetaminophen 5-325 mg tablet 1 tab PO Q6H PRN (Reason: pain) 2 Days Qty: 5 0RF Primary Care Provider: Rajinder Gonzalez Referrals: Arias Alejo DO [Med Staff - Active Staff] - 3-5 Days Ramírez Euceda DO [Med Staff - Active Staff] - 1 Week Rajinder Gonzalez MD [Primary Care Provider] - 3-5 Days Activity Restrictions/Additional Instructions: Return with fever, increased pain, increased rectal bleeding, new or worsening symptoms. Print Language: Jamaican Disposition Disposition: Home, Self Care Discharge Date/Time: 12/30/23 14:30
[2023-12-30 12:01] LABS: Absolute Lymphocyte Count 1.46 X10^3/uL (0.83-4.51); Absolute Neutrophil Count 2.5 X10^3/uL (2.0-7.7); Basophil# 0.03 X10^3/uL; Basophil% 0.7 % (0-1); Eosinophil# 0.06 X10^3/uL; Eosinophils% 1.4 % (0-5); Hematocrit 31.7 % (37-47); Hemoglobin 9.9 g/dL (12.0-15.0); Lymphocyte # 1.46 X10^3/ul (0.83-4.51); Lymphocyte % 34.4 % (19-41); Mean Corp Hgb Conc 31.2 g/dL (32-36); Mean Corpuscular Volume 86.6 fL (81-99); Mean Platelet Vol. 9.8 fl (6.2-12.0); Monocyte# 0.24 X10^3/uL; Monocyte% 5.6 % (0-10); NRBC Flagged by Analyzer 0 % (0-5); Neutrophil # 2.45 X10^3/uL (2.7-7.7); Neutrophil % 57.7 % (47-70); Platelet Count 380 K/mm3 (150-450); RBC Distribution Width CV 18.5 % (11.6-14.6); RBC Distribution Width SD 57.5 fl (35.1-43.9); Red Blood Count 3.66 M/mm3 (4.2-5.4); White Blood Count 4.3 K/mm3 (4.4-11.0)
[2023-12-30 12:16] LABS: AST(SGOT) 16 U/L (15-37); Alanine Aminotransfer ALT/SGPT 22 U/L (13-56); Albumin, Serum 3.2 g/dL (3.2-5.0); Alkaline Phosphatase 58 U/L (45-117); Anion Gap 5 (5-15); BUN 10 mg/dL (7-18); BUN/Creat Ratio 14.8 RATIO (10-20); Calcium,Total 8.2 mg/dL (8.5-10.1); Chloride 107 mmol/L (98-107); Creatinine, Serum 0.68 mg/dL (0.55-1.02); EST Glomerular Filtration Rate 92 mL/min (>60); Est Glom Filt Rate - Afr Amer 111 mL/min (>60); Estimated Creatinine Clearance 64.92 ml/min; Globulin 3.2 g/dL (2.2-4.2); Glucose 109 mg/dL (74-106); Potassium 3.3 mmol/L (3.5-5.1); Protein, Total 6.4 g/dL (6.4-8.2); Sodium Level 140 mmol/L (136-145)
[2023-12-30 12:24] VITALS: BP 156/62; PULSE 68
[2023-12-30 12:27] VITALS: BP 153/74; PULSE 70
[2023-12-30 12:29] VITALS: BP 153/74; BP 157/87; PULSE 70; PULSE 95; RESP 16; O2SAT 97
[2023-12-30] MEDS: 0.9% Normal Saline (1000mL) 1,000 ML 999 ML IV (12:51)
[2023-12-30] MEDS: metroNIDAZOLE 500 MG Tablet PO (13:39)
[2023-12-30] MEDS: Ciprofloxacin 500 MG Tablet PO (13:39)
[2023-12-30 14:25] VITALS: BP 154/68; PULSE 68; RESP 16; O2SAT 100
[2023-12-30] MEDS: 0.9 % NaCl (Sterile) Posiflush 10 mL IV (14:27)
== END 2023-12-30 14:30 | disposition home or self-care (01) ==
PROVIDERS: Emergency Provider Emergency Medicine; PCP Family Medicine; Visit Provider Emergency Medicine
DX: K52.9 Noninfective gastroenteritis and colitis, unspecified (principal); C50.919 Malignant neoplasm of unspecified site of unspecified female breast; K57.30 Diverticulosis of large intestine without perforation or abscess without bleeding; D70.1 Agranulocytosis secondary to cancer chemotherapy; Z88.2 Allergy status to sulfonamides; Z90.11 Acquired absence of right breast and nipple; Z79.899 Other long term (current) drug therapy; Z91.041 Radiographic dye allergy status
CPT/HCPCS: 36591; 74176; 80053; 85025; 96360; 99284; A4216

== ENCOUNTER → 2024-01-18 | Outpatient (CLI) | payer MEDICARE, OTHER, SELFPAY ==
[2024-01-18 12:02] LABS: Absolute Lymphocyte Count 0.77 X10^3/uL (0.83-4.51); Absolute Neutrophil Count 4.1 X10^3/uL (2.0-7.7); Basophil# 0.02 X10^3/uL; Basophil% 0.4 % (0-1); Eosinophil# 0.02 X10^3/uL; Eosinophils% 0.4 % (0-5); Hematocrit 31.6 % (37-47); Hemoglobin 9.9 g/dL (12.0-15.0); Lymphocyte # 0.77 X10^3/ul (0.83-4.51); Lymphocyte % 15.5 % (19-41); Mean Corp Hgb Conc 31.3 g/dL (32-36); Mean Corpuscular Hgb 26.8 pg (27.0-32.0); Mean Corpuscular Volume 85.4 fL (81-99); Mean Platelet Vol. 9.8 fl (6.2-12.0); Monocyte# 0.09 X10^3/uL; Monocyte% 1.8 % (0-10); NRBC Flagged by Analyzer 0.6 % (0-5); Neutrophil # 4.06 X10^3/uL (2.7-7.7); Neutrophil % 81.7 % (47-70); Platelet Count 411 K/mm3 (150-450); RBC Distribution Width CV 18.2 % (11.6-14.6); RBC Distribution Width SD 54.6 fl (35.1-43.9)
== END | disposition home or self-care (01) ==
PROVIDERS: PCP Family Medicine; Referring Provider Student in an Organized Health Care Education/Training Program; Visit Provider Student in an Organized Health Care Education/Training Program
DX: D64.9 Anemia, unspecified (principal)
CPT/HCPCS: 36591; 85025; A4216

== ENCOUNTER → 2024-02-27 | Outpatient (CLI) | payer MEDICARE, OTHER, SELFPAY ==
--- NOTE | 2024-02-27 11:40 | CYSPIN_PTH ---
PATIENT: SOFIA ARREDONDO LOC: [facility] U#:[id number] AGE/SX: 68/F ROOM: RE02/27/[address]: Dr. Ruma Rodriguez MD : 1955 BED: DIS: 02/27/2024 SPEC #: [id number] RECD: 02/28/24 07:37 STATUS: ISAAC REDioni #: [id number] MARILEE: 02/27/24 11:[address]: Ruma Rodriguez DEPT: CYTOLOGY RECD BY: Joanne Wu ENTERED: 02/28/24 07:37 SP TYPE: CYSPIN FL OTHR DR: Dr. Rajinder Gonzalez MD Tissues: Urine Procedures: Pap Stain (control) Special Stain Group II Cytospin Fluid HEADER OPERATION: Not noted PRE-OP DIAGNOSIS: Gross hematuria TISSUE SUBMITTED: Urine for cytology DIAGNOSIS CYTOLOGY Urine for cytology (cytospins): Negative for high grade urothelial carcinoma (NHGUC), Frida Category System II. See comment. [email or web address] 02/28/2024 COMMENT Numerous red blood cells are noted. The specimen predominantly consists of squamous epithelial cells. The Frida System for urine cytology diagnostic categorization was used in the evaluation of this case. CYTOLOGY STUDY Slides are reviewed. CYTOLOGY GROSS Received is 15 ml of [id number] fluid labeled with the patient's name and and designated per the requisition as urine. Submitted for cytology preparation. Mr 02/28/2024 TC:5 CPT: 28919
[2024-02-27 17:52] LABS: Cytology, Body Fluid / CSF SEE PATHOLOGY REPORT
== END | disposition home or self-care (01) ==
PROVIDERS: PCP Family Medicine; Referring Provider Urology; Visit Provider Urology
DX: R31.0 Gross hematuria (principal)

== ENCOUNTER 2024-05-21 12:28 | Inpatient (IN) | payer MEDICARE, OTHER, SELFPAY ==
[2024-05-21 12:28] VITALS: BP 158/83; PULSE 107; RESP 16; TEMP 36.6; O2SAT 98; BMI 27.3
--- NOTE | 2024-05-21 12:47 | ED.VIS.GI ---
HPI HPI - GI History of Present Illness Chief Complaint: Abd Pain Informant: patient Abdominal Pain/Flank Pain Onset: Weeks (1) Context: Gradual Onset Timing: Waxes and wanes Quality: Cramping Location: Diffuse Worsened by: Food Relieved by: Nothing Nausea/Vomiting/Emesis GI Symptom: Positive for Nausea; Negative for Vomiting Diarrhea/Melena/Hematochezia GI Symptom: Positive for Diarrhea; Negative for Melena or Hematochezia Associated Symptoms Associated Symptoms: Positive for Frequency; Negative for Dysuria or Hematuria Narrative Narrative: Patient presents with abdominal pain and nausea that began approximately 1 week ago. Patient states that it has been waxing and waning over that time. Patient states she has had intermittent abdominal pain for the past several months but usually does not last very long. Patient describes her pain as cramping. Patient states it is diffuse across her abdomen. Patient states it gets worse after eating. Patient admits to some nausea but denies any vomiting. Patient admits to some diarrhea but denies any melena or hematochezia. Patient admits to some urinary frequency but denies any dysuria or hematuria. Patient denies any fevers or chills. [facility] Medical History Wears glasses Post-menopausal Cancer Arthritis Kidney stones History of hiatal hernia Non-smoker Shortness of breath on exertion History of edema Breast cancer Home Medications ?Medication ?Instructions ?Recorded ?Last Taken ?Type calcium 500 mg (as 1 ea PO DAILY 05/25/17 Unknown History carbonate)-vitamin D3 15 mcg (600 unit) tablet capecitabine 150 mg tablet (Xeloda) 2,000 mg PO BID 02/15/21 Unknown History Lactobacil.acidophilus-Bifido.animalis 1 cap PO DAILY 02/17/21 Unknown History 5 billion cell sprinkle capsule (Probiotic) calcium 333 mg-vit D3 133 1 tab PO DAILY 02/17/21 Unknown History unit-magnesium 133 mg-zinc 5 mg tablet pyridoxine (vitamin B6) 100 mg 100 mg PO DAILY 02/17/21 Unknown History tablet (Vitamin B-6) apixaban 5 mg tablet (Eliquis) 5 mg PO BID 05/21/24 05/21/24 History cephalexin 250 mg capsule 250 mg PO QHS 05/21/24 05/20/24 History duloxetine 60 mg capsule,delayed 60 mg PO DAILY 05/21/24 05/21/24 History release mirabegron 50 mg tablet,extended 50 mg PO DAILY 05/21/24 05/21/24 History release 24 hr (Myrbetriq) timolol maleate 0.5 % eye drops 1 drp ophthalmic (eye) BID 05/21/24 05/21/24 History Allergy/AdvReac Type Severity Reaction Status Date / Time iodine Allergy Other Verified 05/21/24 12:29 Sulfa (Sulfonamide Allergy Itching Verified 05/21/24 12:29 Antibiotics) Surgical History Hx of cystoscopy S/P foot surgery S/P hysterectomy S/P shoulder surgery S/P knee surgery S/P right mastectomy Social History Smoking Status: Never smoker alcohol intake: never ROS ROS ED Constitutional Constitutional ED: Denies chills or fever(s) Eyes Eyes: Denies blurry vision or change in vision ENT ENT ED: Denies rhinorrhea or sore throat Cardiovascular Cardiovascular: Denies chest pain or palpitations Respiratory/Chest Respiratory/Chest: Denies cough or dyspnea Gastrointestinal Gastrointestinal: Reports abdominal pain, diarrhea and nausea; Denies melena or vomiting Genitourinary Genitourinary ED: Denies dysuria or hematuria Musculoskeletal Musculoskeletal: Reports back pain; Denies neck pain Integumentary Denies abscess or rash Neurologic Neurologic: Reports headache(s); Denies weakness Allergic/Immunologic Allergic/Immunologic ED: Denies mouth swelling or urticaria EXAM Physical Exam Const Vital Signs: 05/21/24 12:28 05/21/24 14:00 Temperature 97.8 F Temperature Source Oral Pulse Rate 107 H 82 Respiratory Rate 16 18 Blood Pressure 158/83 H 129/74 H Blood Pressure Mean 108 92 Pulse Ox 98 98 Oxygen Delivery Method Room Air Room Air Positive well nourished and well developed General Appearance ED: well developed and NAD HEENT Reports moist mucous membranes Neck supple and no JVD Resp normal respiratory effort and clear to auscultation bilaterally Cardio regular rate and regular rhythm GI non-distended Palpation: soft and tender epigastric, LLQ, RLQ, LUQ, RUQ, periumbilical and suprapubic; Negative for guarding or rebound tenderness present Extremity full ROM General Extremety ED: Negative for edema or tenderness General Extremity: Negative for edema Neuro CN's II-XII intact bilaterally, moves all extremities and no sensory deficits noted Motor Exam: strength 5/5 throughout Psych mental status grossly normal MDM MDM MDM Narrative Medical decision making narrative: Differential diagnosis includes foods cholecystitis, cholelithiasis, appendicitis, gastroenteritis, colitis, urinary tract infection, pyelonephritis, pancreatitis, gastroesophageal reflux disease, and chemotherapy side effect. CT scan of the abdomen and pelvis will be obtained to assess for cholecystitis, cholelithiasis, appendicitis, and colitis. CBC will be obtained to assess for leukocytosis and anemia. Comprehensive metabolic profile will be obtained to assess for hepatic function, renal function, and electrolyte abnormality. Lipase will be obtained to assess for pancreatitis. Urinalysis will be obtained to assess for urinary tract infection and hematuria. Lab Data Attestation: I reviewed the patient's lab results. Lab results narrative: CBC was reviewed. White blood cell count was slightly low at 4.1. Hemoglobin was slightly low at 11.2 and hematocrit was 34.6. Platelets were normal. Comprehensive metabolic profile was reviewed. Glucose was slightly elevated at 125. The remainder was within normal limits. Lipase was reviewed and was normal at 26. Urinalysis was reviewed. There is no evidence of urinary tract infection or hematuria. Labs: Laboratory Results - last 24 hr 05/21/24 05/21/24 13:15 14:01 WBC 4.1 L RBC 4.13 L Hgb 11.2 L Hct 34.6 L MCV 83.8 MCH 27.1 MCHC 32.4 RDW Std Deviation 48.6 H RDW Coeff of Elder 16.2 H Plt Count 389 MPV 9.3 Immature Gran % (Auto) 0.500 Neut % (Auto) 52.4 Lymph % (Auto) 34.0 [place] % (Auto) 11.4 H Eos % (Auto) 0.5 Baso % (Auto) 1.2 H Absolute Neuts (auto) 2.2 Absolute Lymphs (auto) 1.40 Nucleated RBC % 0 Sodium 140 Potassium 3.7 Chloride 103 Carbon Dioxide 25.8 Anion Gap 11 BUN 10 Creatinine 0.64 L Estim Creat Clear Calc 64.73 Est GFR (MDRD) Non-Af 96 BUN/Creatinine Ratio 14.9 Glucose 125 H Calcium 8.4 Total Bilirubin 0.42 AST 28 ALT 23 Alkaline Phosphatase 63 Total Protein 6.2 Albumin 3.6 Globulin 2.6 Albumin/Globulin Ratio 1.4 Lipase 26 Urine Color Straw Urine Clarity Clear Urine pH 7.0 Ur Specific Moyers 1.005 Urine Protein 15 H Urine Glucose (UA) Normal Urine Ketones Negative Urine Occult Blood Negative Urine Nitrite Negative Urine Bilirubin Negative Urine Urobilinogen Normal Ur Leukocyte Esterase Negative Urine RBC 0 SEEN Urine WBC 0 SEEN Ur Squamous Epith Cells 0 SEEN Urine Bacteria 0 SEEN Urine Mucus 0 SEEN Radiography Diagnostic Testing: Clinical Impression(s) from Imaging Studies Abdomen/Pelvis CT 05/21/24 13:40 IMPRESSION: 1. Findings suggest at least partial small bowel obstruction with or without superimposed ileus. Difficult to identify a single discrete transition point in the absence of IV or p.o. contrast. Evaluation of the bowel is additionally limited due to the presence of free-fluid. Consider small-bowel follow-through. 2. Diffuse osseous metastatic disease. Small volume free intraperitoneal fluid could be malignant given history of neoplasm, with questioned early peritoneal carcinomatosis. Recommend clinical/oncologic follow-up. 3. Nonspecific nodules in the LEFT lung base up to 6 mm. Hepatic cysts and additional subcentimeter hypodensities too small to definitively characterize. Given reported history of malignancy, metastasis cannot be excluded. Recommend clinical/oncologic follow-up. Comparison with any available outside imaging may be helpful to establish stability. 4. 10 mm likely splenic artery aneurysm, not well delineated in the absence of IV contrast. 5. Appendix not identified. No convincing inflammation in the region. 6. Additional description as above. Reading Location: [facility] CT scan of the abdomen and pelvis was obtained. There is at least a partial small bowel obstruction. A single discrete transition point was unable to be obtained. There is some free fluid noted. There is also osseous metastatic disease. There are nodules in the left lung base up to 6 mm. Hepatic cysts and subcentimeter hypodensities. There is a 10 mm splenic artery aneurysm. This was interpreted by the radiologist and was also independently reviewed by myself. Treatment and Re-Evaluation :: Patient was given IV fluids, morphine, and Zofran. Patient was feeling better on reevaluation. Patient was advised of her findings. Case was discussed with Dr. Mast from general surgery. He recommended pretreating the patient with Benadryl and steroids and obtaining CT scan with oral and IV contrast. He also recommended admitting the patient to the hospitalist service with a consult to surgery service. Case was discussed with the hospitalist. He will admit the patient to his service. Patient understood and was agreeable with the plan. All questions were answered. Discharge Plan Triage Chief Complaint: Abd Pain ED Provider: Tobi Cummings Dx/Rx/DC Orders Clinical Impression: Partial small bowel obstruction, Breast cancer, Metastatic cancer Prescriptions: No Action capecitabine [Xeloda] 150 mg tablet 2,000 mg PO BID Rx Instructions: administer with 3 - 500 mg tabs for each dose; must give with water 30 minutes after a meal calcium carbonate-vitamin D3 1 EACH tablet 1 ea PO DAILY pyridoxine (vitamin B6) [Vitamin B-6] 100 mg Tablet 100 mg PO DAILY vitamin A-vitamin C-vit E-min Tablet 1 tab PO DAILY calcium carb-D3-mag ox-zinc ox 333 mg-133 unit -133 mg-5 mg Tablet 1 tab PO DAILY Probiotic 5 billion cell Capsule, Sprinkle 1 cap PO DAILY hydrocodone-acetaminophen 5-325 mg tablet 1 tab PO Q6H PRN (Reason: pain) 2 Days Qty: 5 0RF ciprofloxacin HCl [Cipro] 500 mg tablet 500 mg PO BID Qty: 14 0RF metronidazole 500 mg tablet 500 mg PO TID Qty: 21 0RF Primary Care Provider: Rajinder Gonzalez Referrals: Rajinder Gonzalez MD [Primary Care Provider] - Print Language: Slovak Disposition Disposition: Acute Care Hospital [facility]
[2024-05-21] MEDS: Ondansetron 4 MG/2 ML Vial IV (13:19)
[2024-05-21] MEDS: 0.9% Normal Saline (1000mL) 1,000 ML 999 ML IV (13:19)
[2024-05-21] MEDS: Morphine 4 MG/ML Syringe IV ×2 (13:20→22:00)
[2024-05-21 13:24] LABS: Absolute Neutrophil Count 2.2 X10^3/uL (2.0-7.7); Basophil# 0.05 X10^3/uL; Basophil% 1.2 % (0-1); Eosinophil# 0.02 X10^3/uL; Eosinophils% 0.5 % (0-5); Hematocrit 34.6 % (37-47); Hemoglobin 11.2 g/dL (12.0-15.0); Mean Corp Hgb Conc 32.4 g/dL (32-36); Mean Corpuscular Hgb 27.1 pg (27.0-32.0); Mean Corpuscular Volume 83.8 fL (81-99); Mean Platelet Vol. 9.3 fl (6.2-12.0); Monocyte# 0.47 X10^3/uL; Monocyte% 11.4 % (0-10); NRBC Flagged by Analyzer 0 % (0-5); Neutrophil # 2.16 X10^3/uL (2.7-7.7); Neutrophil % 52.4 % (47-70); Platelet Count 389 K/mm3 (150-450); RBC Distribution Width CV 16.2 % (11.6-14.6); RBC Distribution Width SD 48.6 fl (35.1-43.9); Red Blood Count 4.13 M/mm3 (4.2-5.4); White Blood Count 4.1 K/mm3 (4.4-11.0)
--- NOTE | 2024-05-21 13:40 | CT_ITS ---
PROCEDURE: ABDOMEN/PELVIS WITHOUT CONT 05/21/2024 REASON FOR EXAM: PAIN TECHNIQUE: Abdomen and pelvis CT without intravenous contrast. Noncontrast technique limits evaluation of the abdominal and pelvic viscera. Coronal and Sagittal reformats were generated. One or more dose reduction techniques were used (e.g., Automated exposure control, adjustment of the mA and/or kV according to patient size, use of iterative reconstruction technique). PATIENT PREPARATION: Per protocol ORAL CONTRAST TYPE: None. AMOUNT: mL RADIATION DOSE SUMMARY: CTDlvol: 8.37 mGy DLP: 451.67 mGycm One or more dose reduction techniques were used (e.g., Automated exposure control, adjustment of the mA and/or kV according to patient size, use of iterative reconstruction technique). COMPARISON: None FINDINGS: Note that evaluation of the abdominopelvic viscera, vasculature, and remaining soft tissues is limited in the absence of IV contrast. Lung bases: Mild atelectasis/scarring. Coronary atherosclerosis and/or stent. Suspect a minimally imaged tip of a central venous catheter in the SVC near the superior cavoatrial junction. RIGHT mastectomy. Nodules in the LEFT lung base up to 6 mm. Liver: Cysts and additional tiny hypodensities too small to characterize. Spleen: Unremarkable. Gallbladder: Cholelithiasis. Pancreas: Grossly unremarkable.. Adrenals: Unremarkable. Kidneys: Renal sinus cysts bilaterally. No hydronephrosis. Favor a vascular phlebolith immediately adjacent to the LEFT ureter rather than a distal ureteral calculus in the absence of hydroureter or hydronephrosis.. Bowel: Distended stomach. Relatively decompressed proximal duodenum. Alternating areas of small bowel dilatation more distally up to 3.4 cm in diameter with somewhat distorted appearance in some areas. Difficult to trace small bowel loops, without single dominant transition point identified. Fecalized contents at some levels, suggesting slow transit. No definite inflammation allowing for the limitation of adjacent free fluid. Diverticulosis. Appendix not definitively identified. No convincing inflammation in the RIGHT lower quadrant. Lymph nodes: Unremarkable. Vasculature: Trace calcific atherosclerosis. 10 mm peripherally calcified likely splenic artery aneurysm suboptimally delineated in the absence of IV contrast. Peritoneum: Small volume free intraperitoneal fluid. Questionable peritoneal nodularity/thickening in the LEFT upper quadrant and pelvis, not well evaluated in the absence of IV contrast. Bladder: Underdistended and suboptimally evaluated, grossly unremarkable. Reproductive Organs: Hysterectomy. Body Wall: Unremarkable. Bones: Diffuse sclerotic osseous metastasis. Mild lower thoracic spondylosis. Sacral Tarlov cysts. CT/Abdomen/Pelvis without Cont IMPRESSION: 1. Findings suggest at least partial small bowel obstruction with or without peralta perimposed ileus. Difficult to identify a single discrete transition point in the absence of IV or p.o. contrast. Evaluation of the bowel is additionally limited due to the presence of free-fluid. Consider small-bowel follow-through. 2. Diffuse osseous metastatic disease. Small volume free intraperitoneal fluid could be malignant given history of neoplasm, with questioned early peritoneal carcinomatosis. Recommend clinical/oncologic follow-up. 3. Nonspecific nodules in the LEFT lung base up to 6 mm. Hepatic cysts and maria d tional subcentimeter hypodensities too small to definitively characterize. Given reported history of malignancy, metastasis ca nnot be excluded. Recommend clinical/oncologic follow-up. Comparison with any available outside imaging may be helpful to esta blish stability. 4. 10 mm likely splenic artery aneurysm, not well delineated in the absence of IV contrast. 5. Appendix not identified. No convincing inflammation in the region. 6. Additional description as above. Reading Location: [id number]
[2024-05-21 13:52] LABS: ALB/GLOB Ratio 1.4 RATIO (0.9-2.4); AST(SGOT) 28 U/L (<=31); Alanine Aminotransfer ALT/SGPT 23 U/L (<=34); Albumin, Serum 3.6 g/dL (3.4-4.8); Alkaline Phosphatase 63 U/L (35-104); Anion Gap 11 (5-15); BUN 10 mg/dL (4-19); BUN/Creat Ratio 14.9 RATIO (10-20); Calcium,Total 8.4 mg/dL (7.6-11.0); Carbon Dioxide 25.8 mmol/L (21.0-32.0); Chloride 103 mmol/L (98-108); Creatinine, Serum 0.64 mg/dL (0.70-1.20); EST Glomerular Filtration Rate 96 (>60); Estimated Creatinine Clearance 64.73 ml/min (50-250); Globulin 2.6 g/dL (2.2-4.2); Glucose 125 mg/dL (70-99); Lipase 26 U/L (13-75); Potassium 3.7 mmol/L (3.3-5.1); Protein, Total 6.2 g/dL (5.9-8.4); Sodium Level 140 mmol/L (133-145); Total Bilirubin 0.42 mg/dL (0.00-1.30)
[2024-05-21 14:00] VITALS: BP 129/74; PULSE 82; RESP 18; O2SAT 98
[2024-05-21 14:06] LABS: Bacteria 0 SEEN /hpf (None Seen); Mucous, Urine 0 SEEN /hpf (<or=2+); Red Blood Cells-Urine 0 SEEN /hpf (0-5); Squamous Epithelial Cells - UA 0 SEEN /hpf (5-10); White Blood Cells 0 SEEN /hpf (0-5)
[2024-05-21 14:12] LABS: Color, Urine Straw (Yellow); Glucose, Dipstick Normal (Normal); Ketone-Dipstick Negative (Negative); Leukocyte Esterase-Dipstick Negative /ul (Negative); Nitrite-Dipstick Negative (Negative); Occult Blood-Urine Negative /ul (Negative); Protein-Dipstick 15 mg/dl (Negative); Specific Gravity, Urine 1.005 (1.002-1.030); Urine Bilirubin Dipstick Negative (Negative); Urine Clarity Clear (Clear); Urine Urobilinogen Normal (Normal)
--- NOTE | 2024-05-21 15:26 | CT_ITS ---
PROCEDURE: ABDOMEN/PELVIS WITH CONTRAST 05/21/2024 REASON FOR EXAM: ABDOMINAL PAIN TECHNIQUE: Abdomen and pelvis CT with intravenous contrast. Coronal and Sagittal reconstruction series were provided. PATIENT PREPARATION: Per protocol ORAL CONTRAST TYPE: None. AMOUNT: mL CONTRAST: Omnipaque 350 VOLUME: 100 mL Gauge IV One or more dose reduction techniques were used (e.g., Automated exposure control, adjustment of the mA and/or kV according to patient size, use of iterative reconstruction technique. COMPARISON: CT abdomen and pelvis 05/21/2024 FINDINGS: Lung bases: Mild bibasilar atelectasis. Liver: Homogeneous attenuation. Multiple unchanged bilobar simple cysts the largest in the posterior right hepatic lobe measures 5.3 cm. Multiple other subcentimeter low-attenuation lesions, too small to characterize. Gallbladder: Minimal intrahepatic ductal dilation. Common bile duct measures 10 mm. Small layering cholelithiasis. No wall thickening. Spleen: No splenomegaly. Pancreas: Normal size without evidence of mass surrounding inflammation or ductal dilation. Adrenals: Unremarkable. Kidneys: Bilateral parapelvic cysts. No suspicious mass or abnormal enhancement. No calculi or hydronephrosis. Bladder: Urinary bladder is unremarkable. Reproductive Organs: No pelvic mass. Bowel: Stomach is moderately distended and fluid-filled. Multiple dilated small bowel loops, measuring up to 3.9 cm. Transition point likely within the right lower quadrant, about the terminal ileum (series 2, image 73) no pneumoperitoneum or drainable fluid collection. Distal colonic loops are collapsed. Colonic diverticulosis without diverticulitis. . Appendix: The appendix is not identified. There is no inflammatory process identified in the right lower quadrant to suggest appendicitis. Lymph nodes: No suspicious lymph node enlargement. Vasculature: Mild diffuse atherosclerotic calcifications are noted. Stable splenic artery calcified aneurysm. Peritoneum / Retroperitoneum: Trace ascites in the left upper quadrant and paracolic gutter. No pneumoperitoneum. Bones: Stable diffuse osseous metastasis. Soft tissues are unremarkable. CT/Abdomen/Pelvis WITH Contrast IMPRESSION: 1. Findings compatible with small-bowel obstruction, with transition point susp ected to be in the right lower quadrant about the terminal ileum. No pneumoperitoneum or drainable fluid collection. 2. Other stable findings as described above. Reading Location: [facility]
[2024-05-21] MEDS: DiphenhydrAMINE 50 MG/ML Syringe 25 MG IV (15:27)
[2024-05-21] MEDS: MethylPREDNISolone 125 MG/2 ML Vial 60 MG IV (15:27)
--- NOTE | 2024-05-21 15:35 | PCM.HP.STD ---
[facility] - General General Date of Admission: 05/21/24 HPI Narrative SOFIA ARREDONDO, is a 68 F who presents to the hospital with possible small bowel obstruction. She has a history of metastatic breast cancer to her bone and liver and she is currently undergoing chemotherapy. She states that for the last couple of weeks she has been having abnormal bowel movements in terms of size, she was not having any belly pain until couple of days ago when she started having a bloating feeling as well as intermittent nausea. In the ER she did have a noncontrasted CT scan that was read as possible small bowel obstruction though they could not see a transition point given the noncontrasted study so general surgery was contacted who requested a contrasted study however she has to be pretreated given her iodine allergy. Her stomach is fairly distended however she denies any significant emesis. [facility] Medical History (Updated 05/21/24 @ 15:54 by Rachael Leahy) GI bleed DVT (deep venous thrombosis) Wears glasses Post-menopausal Cancer Arthritis Kidney stones History of hiatal hernia Non-smoker Shortness of breath on exertion History of edema Breast cancer Home Medications ?Medication ?Instructions ?Recorded ?Last Taken ?Type capecitabine 150 mg tablet (Xeloda) 2,000 mg PO BID 02/15/21 Unknown History Lactobacil.acidophilus-Bifido.animalis 1 cap PO DAILY 02/17/21 Unknown History 5 billion cell sprinkle capsule (Probiotic) pyridoxine (vitamin B6) 100 mg 100 mg PO DAILY 02/17/21 Unknown History tablet (Vitamin B-6) apixaban 5 mg tablet (Eliquis) 5 mg PO BID 05/21/24 05/21/24 History cephalexin 250 mg capsule 250 mg PO QHS 05/21/24 05/20/24 History duloxetine 60 mg capsule,delayed 60 mg PO DAILY 05/21/24 05/21/24 History release mirabegron 50 mg tablet,extended 50 mg PO DAILY 05/21/24 05/21/24 History release 24 hr (Myrbetriq) timolol maleate 0.5 % eye drops 1 drp ophthalmic (eye) BID 05/21/24 05/21/24 History Allergy/AdvReac Type Severity Reaction Status Date / Time iodine Allergy Other Verified 05/21/24 12:29 Sulfa (Sulfonamide Allergy Itching Verified 05/21/24 12:29 Antibiotics) Surgical History Hx of cystoscopy S/P foot surgery S/P hysterectomy S/P shoulder surgery S/P knee surgery S/P right mastectomy Social History Smoking Status: Never smoker alcohol intake: never ROS Constitutional Constitutional: Denies chills, fatigue, fever(s) or malaise Eyes Eyes: Denies blurry vision ENT HEENT: Denies headache(s) or nasal discharge Cardiovascular Cardiovascular: Denies chest pain, dyspnea on exertion or syncope Respiratory/Chest Respiratory/Chest: Denies cough, shortness of breath at rest or shortness of breath with exertion Gastrointestinal Gastrointestinal: Reports abdominal pain, constipation and nausea; Denies diarrhea or vomiting Genitourinary Genitourinary: Denies dysuria Neurologic Neurologic: Denies focal weakness, numbness or tremor(s) Psychiatric Psychiatric: Denies anxiety or depression Vital Signs Vital Signs Vital Signs: 05/21/24 12:28 05/21/24 14:00 Temperature 97.8 F Temperature Source Oral Pulse Rate 107 H 82 Respiratory Rate 16 18 Blood Pressure 158/83 H 129/74 H Blood Pressure Mean 108 92 Pulse Ox 98 98 Oxygen Delivery Method Room Air Room Air Weight Weight: 159 lb 9.835 oz Body Mass Index (BMI) 27.3 Physical Exam Narrative General: Alert, Oriented x3, Cooperative, No apparent distress HEENT: Atraumatic, PERRLA, EOMI, Normocephalic Oral: Moist Mucosa Neck: Supple, No JVD Lungs: Diminished, Normal air movement, No rhonchi, No wheeze, No rales Cardiovascular: Regular rate, Regular Rhythm, Normal S1, Normal S2, No murmurs Abdomen: Soft, minimally tender to palpation in all quadrants, Non-Distended, No Hepato-splenomegaly Extremities: No edema, Capillary Refill Less than 3 Seconds Skin: No rashes, No breakdown Musculoskeletal: No Tenderness to Palpation of Joints or Extremities Neurological: No focal neurological deficits, Motor Exam 5/5 strength throughout, Sensory exam intact to light touch and pain Psych/Mental Status: Normal Affect, Appropriate Results Lab / Micro Data 05/21/24 13:15 05/21/24 13:15 Labs: Laboratory Results - last 24 hr 05/21/24 13:15: WBC 4.1 L, RBC 4.13 L, Hgb 11.2 L, Hct 34.6 L, MCV 83.8, MCH 27.1, MCHC 32.4, RDW Std Deviation 48.6 H, RDW Coeff of Elder 16.2 H, Plt Count 389, MPV 9.3, Immature Gran % (Auto) 0.500, Neut % (Auto) 52.4, Lymph % (Auto) 34.0, [place] % (Auto) 11.4 H, Eos % (Auto) 0.5, Baso % (Auto) 1.2 H, Absolute Neuts (auto) 2.2, Absolute Lymphs (auto) 1.40, Nucleated RBC % 0, Sodium 140, Potassium 3.7, Chloride 103, Carbon Dioxide 25.8, Anion Gap 11, BUN 10, Creatinine 0.64 L, Estim Creat Clear Calc 64.73, Est GFR (MDRD) Non-Af 96, BUN/Creatinine Ratio 14.9, Glucose 125 H, Calcium 8.4, Total Bilirubin 0.42, AST 28, ALT 23, Alkaline Phosphatase 63, Total Protein 6.2, Albumin 3.6, Globulin 2.6, Albumin/Globulin Ratio 1.4, Lipase 26 05/21/24 14:01: Urine Color Straw, Urine Clarity Clear, Urine pH 7.0, Ur Specific [place] 1.005, Urine Protein 15 H, Urine Glucose (UA) Normal, Urine Ketones Negative, Urine Occult Blood Negative, Urine Nitrite Negative, Urine Bilirubin Negative, Urine Urobilinogen Normal, Ur Leukocyte Esterase Negative, Urine RBC 0 SEEN, Urine WBC 0 SEEN, Ur Squamous Epith Cells 0 SEEN, Urine Bacteria 0 SEEN, Urine Mucus 0 SEEN Imaging Radiology Impression Abdomen/Pelvis CT 05/21/24 13:40 IMPRESSION: 1. Findings suggest at least partial small bowel obstruction with or without superimposed ileus. Difficult to identify a single discrete transition point in the absence of IV or p.o. contrast. Evaluation of the bowel is additionally limited due to the presence of free-fluid. Consider small-bowel follow-through. 2. Diffuse osseous metastatic disease. Small volume free intraperitoneal fluid could be malignant given history of neoplasm, with questioned early peritoneal carcinomatosis. Recommend clinical/oncologic follow-up. 3. Nonspecific nodules in the LEFT lung base up to 6 mm. Hepatic cysts and additional subcentimeter hypodensities too small to definitively characterize. Given reported history of malignancy, metastasis cannot be excluded. Recommend clinical/oncologic follow-up. Comparison with any available outside imaging may be helpful to establish stability. 4. 10 mm likely splenic artery aneurysm, not well delineated in the absence of IV contrast. 5. Appendix not identified. No convincing inflammation in the region. 6. Additional description as above. Reading Location: [id number] Assessment & Plan Assessment/Plan (1) Partial small bowel obstruction: PLAN: Plan 1. Partial small bowel obstruction ? Will consult general surgery ? N.p.o. ? NG tube if she develops emesis ? Continue with IV fluids ? Pain medication ? CT scan with p.o. and IV contrast is pending which can potentially alter treatment plan, she is being pretreated with Benadryl and steroids 2. Stage IV breast cancer with history of DVT ? Currently on Xeloda ? Oncologist is [facility] Dr. Alejo ? Will hold her Eliquis and put her on therapeutic Lovenox 3. Anxiety/depression ? Stable ? Continue with Cymbalta when she can take p.o. 4. She is on prophylactic Keflex which we can continue when she can take p.o. DVT: Therapeutic Lovenox 75 minutes was spent on direct patient care, including documentation as well as chart review and collaboration with colleagues Charges/Coding Visit Charges Inpatient E&M: 66820 Init Hosp L3
[2024-05-21 16:41] VITALS: BP 129/74; PULSE 82; RESP 18; TEMP 36.6; O2SAT 98
[2024-05-21 17:02] VITALS: BMI 27.1
[2024-05-21 17:05] VITALS: BP 142/72; PULSE 87; RESP 18; TEMP 36.2; O2SAT 93
[2024-05-21] MEDS: 0.9% Normal Saline (1000mL) 1,000 ML 100 ML IV (17:26)
[2024-05-21] MEDS: 0.9% Saline Lock 10 ML Syringe IV ×2 (17:26→18:44)
--- NOTE | 2024-05-21 18:29 | RAD_ITS ---
PROCEDURE: ABDOMEN SINGLE VIEW (PORTABLE) 05/21/2024 REASON FOR EXAM: NG PLACEMENT TECHNIQUE: Single view abdomen. COMPARISON: CT abdomen and pelvis 05/21/2024 FINDINGS: Interval placement feeding tube with the tip at the proximal gastric body and the side port below the diaphragm. Within the upper abdomen there is a nonobstructive bowel pattern. Moderate colonic stool. Contrast is noted within the bilateral renal collecting systems. Partially imaged left chest wall port catheter and right-sided central venous catheter. Right axillary surgical clips. RAD/Abdomen Single View (Portable) IMPRESSION: See above Reading Location: [facility]
--- NOTE | 2024-05-21 18:37 | EX.PCM.CON.S ---
Assessment & Plan Assessment/Plan (1) Partial small bowel obstruction: PLAN: Patient is 68-year-old female who is admitted with likely small bowel obstruction (by history this is at least partial in degree). Patient describes several day history of progressive abdominal discomfort with nausea but no vomiting. Bowel movements are minimal at this point. CT imaging is consistent with small bowel obstruction and transition zone in the right lower quadrant. Patient's exam is somewhat encouraging that she has minimal distention and minimal tenderness. I discussed with her and her sons (who are at bedside with her) at length the current presentation and her history with metastatic breast cancer. I shared that the etiologies for small bowel obstructions encompass adhesive disease from prior surgery, hernia, and the neoplastic process as a third most prevalent source for bowel obstructions. Given that patient has no prior intra-abdominal surgery history nor any evidence of hernia I am concerned that the current presentation is related to her history of metastatic breast cancer. I also discussed that the presence of small volume ascites may be related as well. Given this potential and patient's concurrent chemotherapy I recommended we exhaust all conservative measures before surgery is at all considered. I discussed the unknowns of any potential surgical undertaking including whether or not a bowel resection would be required and to what extent. I shared that there would likely be implications for her chemotherapy on healing of any anastomoses but that there were certainly risks with considering just proceeding with an ileostomy as well. Patient and her family appear to understand the discussion well and do wish to avoid surgery if at all possible. Therefore recommend for the present placement of a nasogastric tube to low intermittent wall suction with regular flushing. Will plan to perform small bowel follow-through in the a.m. Patient should be position to minimize aspiration risk and ensure function of the nasogastric tube. Lastly, we will plan to discuss with hospitalist service and radiology tomorrow whether or not a diagnostic paracentesis is reasonable/feasible. Will also look to reach out to patient's oncologist, Dr. Alejo to update on patient's clinical course. Naresh Mast MD General Surgery Endocrine Surgery Pager: [facility] [address] [place] [address], [address] [place] [id number] Office: [phone] (2) Metastatic cancer: (3) Breast cancer: HPI Consult Data Date of Consult: 05/21/24 HPI Narrative Reason for Consultation: Small bowel obstruction HPI Narrative: SOFIA ARREDONDO, is a 68 F who presents to [facility] with complaints of diffuse abdominal discomfort and nausea that has persisted last 4 to 5 days. She notes intermittent improvements of her symptoms but then relapses with the discomfort. She has had nausea she denies any vomiting. She reports that she was able to eat Jell-O, fries, and pudding yesterday all without vomiting. However, she does admit to some burping recently. She confirms that she is passing gas but her bowel movements have definitely been smaller in size. In fact, for the past 3 months she states sometimes she will go to the bathroom and it seems as though nothing even contacts the toilet water. She admits to some constipation lifelong, but suggests that this issue has definitely been compounded by concurrent use of chemotherapy. Patient has been managed for metastatic breast cancer the past 12 years. She is under the care of Dr. Alejo. She shares that she is presently receiving chemotherapy with the last administration a week ago. She shares that she receives scans every 3 months and was told at last check that her disease was stable. Patient's workup in the ER included CBC demonstrating some leukopenia and CT imaging of the abdomen pelvis initially performed without p.o. or IV contrast which suggested at least partial small bowel obstruction with or without possible superimposed ileus). After further discussion with the emergency medicine physician I recommended pursuing CT imaging with p.o. and IV contrast for better definition of patient's anatomy. In the meantime patient was admitted to the hospitalist service for ongoing management. Patient has history of hysterectomy but this was done via transvaginal route. Otherwise she denies any abdominal surgery history. Follow-up CT imaging was successful after pretreatment also for her iodine allergy and this shows evidence, more convincingly, of a small bowel obstruction with transition zone in the right lower quadrant. [facility] Medical History (Updated 05/21/24 @ 15:54 by Rachael Leahy) GI bleed DVT (deep venous thrombosis) Wears glasses Post-menopausal Cancer Arthritis Kidney stones History of hiatal hernia Non-smoker Shortness of breath on exertion History of edema Breast cancer Home Medications ?Medication ?Instructions ?Recorded ?Last Taken ?Type capecitabine 150 mg tablet (Xeloda) 2,000 mg PO BID 02/15/21 Unknown History Lactobacil.acidophilus-Bifido.animalis 1 cap PO DAILY 02/17/21 Unknown History 5 billion cell sprinkle capsule (Probiotic) pyridoxine (vitamin B6) 100 mg 100 mg PO DAILY 02/17/21 Unknown History tablet (Vitamin B-6) apixaban 5 mg tablet (Eliquis) 5 mg PO BID 05/21/24 05/21/24 History cephalexin 250 mg capsule 250 mg PO QHS 05/21/24 05/20/24 History duloxetine 60 mg capsule,delayed 60 mg PO DAILY 05/21/24 05/21/24 History release mirabegron 50 mg tablet,extended 50 mg PO DAILY 05/21/24 05/21/24 History release 24 hr (Myrbetriq) timolol maleate 0.5 % eye drops 1 drp ophthalmic (eye) BID 05/21/24 05/21/24 History Allergy/AdvReac Type Severity Reaction Status Date / Time iodine Allergy Other Verified 05/21/24 12:29 Sulfa (Sulfonamide Allergy Itching Verified 05/21/24 12:29 Antibiotics) Surgical History Hx of cystoscopy S/P foot surgery S/P hysterectomy S/P shoulder surgery S/P knee surgery S/P right mastectomy Social History Smoking Status: Never smoker alcohol intake: never Physical Exam Const alert, oriented x3 and no apparent distress Resp normal respiratory effort Effort and Inspection: able to speak in complete sentences GI GI Narrative: Minimally distended, soft, tender to palpation in the right lower quadrant with mild intensity. Mild tympany with percussion of the left upper and left mid abdomen. Lab / Micro Data 05/21/24 13:15 05/21/24 13:15 Labs: Laboratory Results - last 24 hr 05/21/24 13:15: WBC 4.1 L, RBC 4.13 L, Hgb 11.2 L, Hct 34.6 L, MCV 83.8, MCH 27.1, MCHC 32.4, RDW Std Deviation 48.6 H, RDW Coeff of Elder 16.2 H, Plt Count 389, MPV 9.3, Immature Gran % (Auto) 0.500, Neut % (Auto) 52.4, Lymph % (Auto) 34.0, [place] % (Auto) 11.4 H, Eos % (Auto) 0.5, Baso % (Auto) 1.2 H, Absolute Neuts (auto) 2.2, Absolute Lymphs (auto) 1.40, Nucleated RBC % 0, Sodium 140, Potassium 3.7, Chloride 103, Carbon Dioxide 25.8, Anion Gap 11, BUN 10, Creatinine 0.64 L, Estim Creat Clear Calc 64.73, Est GFR (MDRD) Non-Af 96, BUN/Creatinine Ratio 14.9, Glucose 125 H, Calcium 8.4, Total Bilirubin 0.42, AST 28, ALT 23, Alkaline Phosphatase 63, Total Protein 6.2, Albumin 3.6, Globulin 2.6, Albumin/Globulin Ratio 1.4, Lipase 26 05/21/24 14:01: Urine Color Straw, Urine Clarity Clear, Urine pH 7.0, Ur Specific [place] 1.005, Urine Protein 15 H, Urine Glucose (UA) Normal, Urine Ketones Negative, Urine Occult Blood Negative, Urine Nitrite Negative, Urine Bilirubin Negative, Urine Urobilinogen Normal, Ur Leukocyte Esterase Negative, Urine RBC 0 SEEN, Urine WBC 0 SEEN, Ur Squamous Epith Cells 0 SEEN, Urine Bacteria 0 SEEN, Urine Mucus 0 SEEN Imaging Radiology Impression Abdomen/Pelvis CT 05/21/24 13:40 IMPRESSION: 1. Findings suggest at least partial small bowel obstruction with or without superimposed ileus. Difficult to identify a single discrete transition point in the absence of IV or p.o. contrast. Evaluation of the bowel is additionally limited due to the presence of free-fluid. Consider small-bowel follow-through. 2. Diffuse osseous metastatic disease. Small volume free intraperitoneal fluid could be malignant given history of neoplasm, with questioned early peritoneal carcinomatosis. Recommend clinical/oncologic follow-up. 3. Nonspecific nodules in the LEFT lung base up to 6 mm. Hepatic cysts and additional subcentimeter hypodensities too small to definitively characterize. Given reported history of malignancy, metastasis cannot be excluded. Recommend clinical/oncologic follow-up. Comparison with any available outside imaging may be helpful to establish stability. 4. 10 mm likely splenic artery aneurysm, not well delineated in the absence of IV contrast. 5. Appendix not identified. No convincing inflammation in the region. 6. Additional description as above. Reading Location: [id number] Abdomen/Pelvis CT 05/21/24 15:26 IMPRESSION: 1. Findings compatible with small-bowel obstruction, with transition point suspected to be in the right lower quadrant about the terminal ileum. No pneumoperitoneum or drainable fluid collection. 2. Other stable findings as described above. Reading Location: [id number] Charges/Coding Visit Charges Inpatient E&M: 47832 Init Hosp L2
[2024-05-21] MEDS: Morphine 2 MG/ML Syringe IV (18:43)
[2024-05-21] MEDS: Oxymetazoline 0.05% 1 SPRAY SPRAY.BTL 2 SPRAY NASAL (18:54)
[2024-05-21 20:00] VITALS: BP 145/64; PULSE 76; RESP 16; TEMP 36.5; O2SAT 97
[2024-05-21] MEDS: Enoxaparin 80 MG/0.8 ML Syringe 70 MG SC (21:21)
[2024-05-21 23:00] VITALS: BP 153/79; PULSE 103; RESP 16; TEMP 36.4; O2SAT 95
[2024-05-22 01:00] VITALS: PULSE 99
[2024-05-22] MEDS: 0.9% Normal Saline (1000mL) 1,000 ML 100 ML IV ×2 (03:30→15:23)
[2024-05-22 04:04] VITALS: BP 140/92; PULSE 92; RESP 16; TEMP 36.5; O2SAT 93
[2024-05-22 05:04] VITALS: PULSE 90
[2024-05-22 06:53] LABS: Absolute Lymphocyte Count 1.47 X10^3/uL (0.83-4.51); Basophil# 0.01 X10^3/uL; Basophil% 0.3 % (0-1); Hematocrit 30.9 % (37-47); Hemoglobin 9.9 g/dL (12.0-15.0); Lymphocyte # 1.47 X10^3/ul (0.83-4.51); Lymphocyte % 37.3 % (19-41); Mean Corpuscular Hgb 27.4 pg (27.0-32.0); Mean Corpuscular Volume 85.6 fL (81-99); Mean Platelet Vol. 9.3 fl (6.2-12.0); Monocyte# 0.43 X10^3/uL; Monocyte% 10.9 % (0-10); NRBC Flagged by Analyzer 0 % (0-5); Neutrophil # 2.02 X10^3/uL (2.7-7.7); Neutrophil % 51.2 % (47-70); Platelet Count 362 K/mm3 (150-450); RBC Distribution Width CV 16.3 % (11.6-14.6); RBC Distribution Width SD 50.3 fl (35.1-43.9); Red Blood Count 3.61 M/mm3 (4.2-5.4); White Blood Count 3.9 K/mm3 (4.4-11.0)
--- NOTE | 2024-05-22 07:23 | PN.HOSP_ITS ---
Reason for Visit Reason for Visit: Abdominal bloating and nausea Subjective Subjective Patient is a 68-year-old female with a history of metastatic breast CA who presented to the emergency department at [facility] on 05/21/2024 with chief complaint of worsening abdominal bloating as well as intermittent nausea. Patient reported has been ongoing for the last couple weeks and she was having some abnormal bowel movements in terms of size. She was not having any belly pain until a couple of days when she started having said bloating. Vital signs on presentation showed a temperature of 97.8, heart rate was 107, respiratory 16, blood pressure was 158/83 and pulse ox was 98% on room air. CBC on presentation showed mild leukopenia, chronic stable anemia and a slight monocytosis. Chemistry panel was unremarkable. Serum glucose was 125. Liver functions were unremarkable. Lipase was normal. UA was not consistent with infection and relatively benign appearing. CT of the abdomen pelvis was performed and showed findings compatible with a small bowel obstruction having a transition point in this right lower quadrant above the terminal ileum with no pneumoperitoneum or drainable fluid collection and chronic stable findings consistent with her metastatic disease. Given the findings of small bowel obstruction emergency department general surgery was consulted and recommended conservative management with an NG tube, bowel rest and IV fluids. She was seen by general surgery this morning and stated that she had noted improvement with the NG tube and was passing a little bit of flatus. Small bowel follow-through was ordered and small bowel follow-through showed previous findings consistent with small bowel obstruction had resolved. Patient states overall she is feeling much better and passing flatus. Hopes to be able to go home tomorrow. Objective Data Objective Data Vital Signs: Vital Signs Temp Pulse Resp BP Pulse Ox O2 Del Method 97.7 F L 90 16 140/92 H 93 Room Air 05/22/24 04:04 05/22/24 05:04 05/22/24 04:04 05/22/24 04:04 05/22/24 04:04 05/22/24 05:04 Oxygen Delivery Method Room Air Weight: 71.6 kg Body Mass Index (BMI) 27.1 Intake & Output: Intake and Output for Last 24 Hours 05/20/24 05/21/24 05/22/24 23:59 23:59 23:59 Intake Total 1000 / 1000 1030 / 1030 Output Total 800 / 800 Balance 1000 / 200 230 / 230 Lab / Micro Data 05/22/24 06:40 05/22/24 06:40 Labs: Laboratory Results - last 24 hr 05/21/24 13:15: WBC 4.1 L, RBC 4.13 L, Hgb 11.2 L, Hct 34.6 L, MCV 83.8, MCH 27.1, MCHC 32.4, RDW Std Deviation 48.6 H, RDW Coeff of Elder 16.2 H, Plt Count 389, MPV 9.3, Immature Gran % (Auto) 0.500, Neut % (Auto) 52.4, Lymph % (Auto) 34.0, [place] % (Auto) 11.4 H, Eos % (Auto) 0.5, Baso % (Auto) 1.2 H, Absolute Neuts (auto) 2.2, Absolute Lymphs (auto) 1.40, Nucleated RBC % 0, Sodium 140, Potassium 3.7, Chloride 103, Carbon Dioxide 25.8, Anion Gap 11, BUN 10, C reatinine 0.64 L, Estim Creat Clear Calc 64.73, Est GFR (MDRD) Non-Af 96, BUN/Creatinine Ratio 14.9, Glucose 125 H, Calcium 8.4, Total Bilirubin 0.42, AST 28, ALT 23, Alkaline Phosphatase 63, Total Protein 6.2, Albumin 3.6, Globulin 2.6, Albumin/Globulin Ratio 1.4, Lipase 26 05/21/24 14:01: Urine Color Straw, Urine Clarity Clear, Urine pH 7.0, Ur Specific [place] 1.005, Urine Protein 15 H, Urine Glucose (UA) Normal, Urine Ketones Negative, Urine Occult Blood Negative, Urine Nitrite Negative, Urine Bilirubin Negative, Urine Urobilinogen Normal, Ur Leukocyte Esterase Negative, Urine RBC 0 SEEN, Urine WBC 0 SEEN, Ur Squamous Epith Cells 0 SEEN, Urine Bacteria 0 SEEN, Urine Mucus 0 SEEN 05/22/24 06:40: WBC 3.9 L, RBC 3.61 L, Hgb 9.9 L, Hct 30.9 L, MCV 85.6, MCH 27.4, MCHC 32.0, RDW Std Deviation 50.3 H, RDW Coeff of Elder 16.3 H, Plt Count 362, MPV 9.3, Immature Gran % (Auto) 0.300, Neut % (Auto) 51.2, Lymph % (Auto) 37.3, [place] % (Auto) 10.9 H, Eos % (Auto) 0.0, Baso % (Auto) 0.3, Absolute Neuts (auto) 2.0, Absolute Lymphs (auto) 1.47, Nucleated RBC % 0 Radiography Diagnostic Testing: Radiology Impression Abdomen/Pelvis CT 05/21/24 13:40 IMPRESSION: 1. Findings suggest at least partial small bowel obstruction with or without superimposed ileus. Difficult to identify a single discrete transition point in the absence of IV or p.o. contrast. Evaluation of the bowel is additionally limited due to the presence of free-fluid. Consider small-bowel follow-through. 2. Diffuse osseous metastatic disease. Small volume free intraperitoneal fluid could be malignant given history of neoplasm, with questioned early peritoneal carcinomatosis. Recommend clinical/oncologic follow-up. 3. Nonspecific nodules in the LEFT lung base up to 6 mm. Hepatic cysts and additional subcentimeter hypodensities too small to definitively characterize. Given reported history of malignancy, metastasis cannot be excluded. Recommend clinical/oncologic follow-up. Comparison with any available outside imaging may be helpful to establish stability. 4. 10 mm likely splenic artery aneurysm, not well delineated in the absence of IV contrast. 5. Appendix not identified. No convincing inflammation in the region. 6. Additional description as above. Reading Location: [facility] Abdomen/Pelvis CT 05/21/24 15:26 IMPRESSION: 1. Findings compatible with small-bowel obstruction, with transition point suspected to be in the right lower quadrant about the terminal ileum. No pneumoperitoneum or drainable fluid collection. 2. Other stable findings as described above. Reading Location: [facility] X-Ray 05/21/24 18:29 IMPRESSION: See above Reading Location: [facility] Physical Exam Const alert, oriented x3, no apparent distress and average body habitus; Negative for healthy appearing Constitutional Narrative: Upper middle-aged, white female who appears older than stated age sitting up in bed, family at bedside, patient appears comfortable at this time, nontoxic HEENT head/scalp atraumatic and moist oral mucous membranes HEENT Narrative: NG tube in nares Head and Scalp: normocephalic Resp normal respiratory effort, no retractions, no use of accessory muscles and clear to auscultation bilaterally Auscultation: Negative for rales, rhonchi or wheezes Cardio regular rate, regular rhythm, S1 normal heart sound, S2 normal heart sound, no murmurs, no rub, no gallops and no clicks GI GI Narrative: No distention, bowel sounds are normal active at this time with NG tube clamped, abdomen is soft with no tenderness noted at this time and patient is passing flatus Extremity no clubbing, cyanosis or edema Extremity Narrative: Pedal and radial pulses are 2+ Neuro oriented x3, moves all extremities and no focal motor deficits Psych affect normal Psych Narrative: Very pleasant, interacts appropriately Assessment & Plan Assessment/Plan (1) Metastatic cancer: (2) Partial small bowel obstruction: PLAN: Plan Partial small bowel obstruction -Patient now passing flatus -Continue IV fluids until diet initiated -Small bowel follow-through was positive for contrast to the colon -Management per general surgery however anticipate NG tube removal and starting diet -If patient does well should be able to discharge tomorrow Stage IV breast cancer -Patient on Xeloda -On zoledronic acid for bone mets -Continue on vitamin B6 -Patient follows at [facility] with Dr. Alejo Will update oncology prior to discharge- History of DVT -Patient had been on Eliquis but currently on hold in case surgery is required -Continue therapeutic Lovenox with anticipated transfer back to [facility] at discharge Glaucoma -Continue eyedrops Recurrent UTIs -Continue prophylactic Keflex and probiotic History of depression/anxiety -Continue home duloxetine DVT prophylaxis -Continue therapeutic Lovenox with transition back to Eliquis as long as surgery is not required and able to discharge home CODE STATUS -DNR CCA with intubation Charges/Coding Visit Charges Inpatient E&M: 01773 Subs Hosp L2
[2024-05-22 07:57] LABS: Anion Gap 11 (5-15); BUN 8 mg/dL (4-19); Calcium,Total 7.7 mg/dL (7.6-11.0); Carbon Dioxide 23.5 mmol/L (21.0-32.0); Chloride 107 mmol/L (98-108); Creatinine, Serum 0.58 mg/dL (0.70-1.20); EST Glomerular Filtration Rate 98 (>60); Estimated Creatinine Clearance 64.39 ml/min (50-250); Glucose 118 mg/dL (70-99); Potassium 3.9 mmol/L (3.3-5.1); Sodium Level 141 mmol/L (133-145)
[2024-05-22] MEDS: Enoxaparin 80 MG/0.8 ML Syringe 70 MG SC ×2 (07:57→22:28)
[2024-05-22 08:20] VITALS: BP 141/74; PULSE 77; RESP 12; TEMP 36.5; O2SAT 94
--- NOTE | 2024-05-22 08:45 | PN.SURG_ITS ---
Subjective Subjective Patient evaluated resting comfortably in bed. She notes feeling improved with the NG tube in place. She denies any nausea. She notes passing a little flatus. Negtaive BM. Objective Data Objective Data Vital Signs: Vital Signs Temp Pulse Resp BP Pulse Ox O2 Del Method 97.7 F L 90 16 140/92 H 93 Room Air 05/22/24 04:04 05/22/24 05:04 05/22/24 04:04 05/22/24 04:04 05/22/24 04:04 05/22/24 05:04 Oxygen Delivery Method Room Air Weight: 157 lb 13.616 oz Body Mass Index (BMI) 27.1 Intake & Output: Intake and Output for Last 24 Hours 05/20/24 05/21/24 05/22/24 23:59 23:59 23:59 Intake Total 1000 / 1000 1030 / 1030 Output Total 800 / 800 Balance 1000 / 200 230 / 230 Lab / Micro Data 05/22/24 06:40 05/22/24 06:40 Labs: Laboratory Results - last 24 hr 05/21/24 13:15: WBC 4.1 L, RBC 4.13 L, Hgb 11.2 L, Hct 34.6 L, MCV 83.8, MCH 27.1, MCHC 32.4, RDW Std Deviation 48.6 H, RDW Coeff of Elder 16.2 H, Plt Count 389, MPV 9.3, Immature Gran % (Auto) 0.500, Neut % (Auto) 52.4, Lymph % (Auto) 34.0, [place] % (Auto) 11.4 H, Eos % (Auto) 0.5, Baso % (Auto) 1.2 H, Absolute Neuts (auto) 2.2, Absolute Lymphs (auto) 1.40, Nucleated RBC % 0, Sodium 140, Potassium 3.7, Chloride 103, Carbon Dioxide 25.8, Anion Gap 11, BUN 10, C reatinine 0.64 L, Estim Creat Clear Calc 64.73, Est GFR (MDRD) Non-Af 96, BUN/Creatinine Ratio 14.9, Glucose 125 H, Calcium 8.4, Total Bilirubin 0.42, AST 28, ALT 23, Alkaline Phosphatase 63, Total Protein 6.2, Albumin 3.6, Globulin 2.6, Albumin/Globulin Ratio 1.4, Lipase 26 05/21/24 14:01: Urine Color Straw, Urine Clarity Clear, Urine pH 7.0, Ur Specific [place] 1.005, Urine Protein 15 H, Urine Glucose (UA) Normal, Urine Ketones Negative, Urine Occult Blood Negative, Urine Nitrite Negative, Urine Bilirubin Negative, Urine Urobilinogen Normal, Ur Leukocyte Esterase Negative, Urine RBC 0 SEEN, Urine WBC 0 SEEN, Ur Squamous Epith Cells 0 SEEN, Urine Bacteria 0 SEEN, Urine Mucus 0 SEEN 05/22/24 06:40: WBC 3.9 L, RBC 3.61 L, Hgb 9.9 L, Hct 30.9 L, MCV 85.6, MCH 27.4, MCHC 32.0, RDW Std Deviation 50.3 H, RDW Coeff of Elder 16.3 H, Plt Count 362, MPV 9.3, Immature Gran % (Auto) 0.300, Neut % (Auto) 51.2, Lymph % (Auto) 37.3, [place] % (Auto) 10.9 H, Eos % (Auto) 0.0, Baso % (Auto) 0.3, Absolute Neuts (auto) 2.0, Absolute Lymphs (auto) 1.47, Nucleated RBC % 0, Sodium 141, Potassium 3.9, Chloride 107, Carbon Dioxide 23.5, Anion Gap 11, BUN 8, C reatinine 0.58 L, Estim Creat Clear Calc 64.39, Est GFR (MDRD) Non-Af 98, BUN/Creatinine Ratio 14.0, Glucose 118 H, Calcium 7.7 Radiography Diagnostic Testing: Radiology Impression Abdomen/Pelvis CT 05/21/24 13:40 IMPRESSION: 1. Findings suggest at least partial small bowel obstruction with or without superimposed ileus. Difficult to identify a single discrete transition point in the absence of IV or p.o. contrast. Evaluation of the bowel is additionally limited due to the presence of free-fluid. Consider small-bowel follow-through. 2. Diffuse osseous metastatic disease. Small volume free intraperitoneal fluid could be malignant given history of neoplasm, with questioned early peritoneal carcinomatosis. Recommend clinical/oncologic follow-up. 3. Nonspecific nodules in the LEFT lung base up to 6 mm. Hepatic cysts and additional subcentimeter hypodensities too small to definitively characterize. Given reported history of malignancy, metastasis cannot be excluded. Recommend clinical/oncologic follow-up. Comparison with any available outside imaging may be helpful to establish stability. 4. 10 mm likely splenic artery aneurysm, not well delineated in the absence of IV contrast. 5. Appendix not identified. No convincing inflammation in the region. 6. Additional description as above. Reading Location: [facility] Abdomen/Pelvis CT 05/21/24 15:26 IMPRESSION: 1. Findings compatible with small-bowel obstruction, with transition point suspected to be in the right lower quadrant about the terminal ileum. No pneumoperitoneum or drainable fluid collection. 2. Other stable findings as described above. Reading Location[facility] X-Ray 05/21/24 18:29 IMPRESSION: See above Reading Location: [facility] Physical Exam HEENT HEENT Narrative: NG tube in place GI GI Narrative: Abdomen- soft, nontender. Assessment & Plan Assessment/Plan (1) Partial small bowel obstruction: PLAN: I am following this patient in conjunction with Dr. Mast. He has independently evaluated this patient. Labs reviewed. WBC 3.9 today NG tube output was 800 overnight Plan for a small bowel follow-through this morning No surgical intervention planned at this time We will continue to moniotr this patient Charges/Coding Visit Charges Inpatient E&M: 13162 Subs Hosp L2
--- NOTE | 2024-05-22 09:00 | RAD_ITS ---
EXAM: SMALL BOWEL STUDY CLINICAL HISTORY: FOLLOW-UP SMALL BOWEL OBSTRUCTION. COMPARISON: CT ABDOMEN AND PELVIS DATED 05/21/2024. TECHNIQUE: Barium was given through an indwelling nasogastric tube with its tip in the body of the stomach. Supine projections of the abdomen were obtained immediately following instillation of the barium and at 6 hours post instillation. FINDINGS: An area of narrowing involving the descending limb of the duodenum may be the result of normal contractility and/or spasm. No abnormally dilated loops of small bowel. No zones of transition. Residual contrast is noted in the urinary bladder. RAD/Small Bowel Series Only IMPRESSION: Previously noted findings concerning for small bowel obstruction have resolved. Findings pertaining to the duodenum documented above. Reading Location: [place] [address]
[2024-05-22] MEDS: 0.9% Saline Lock 10 ML Syringe IV ×2 (10:03→10:09)
[2024-05-22] MEDS: Morphine 2 MG/ML Syringe IV (10:03)
[2024-05-22] MEDS: Ondansetron 4 MG/2 ML Vial IV (10:09)
[2024-05-22 14:02] VITALS: BP 149/80; PULSE 75; RESP 12; TEMP 36.5; O2SAT 94
--- NOTE | 2024-05-22 14:53 | CASEMGMT ---
MADINA TSE Assessment Face to Face with patient for initial transition planning/care coordination assessment. MADINA TSE introduced self and role at [facility], pt voices understanding. Pt is A&Ox4 and is resting comfortably in bed and is calm. Pt son, DIL, and GS @ bedside. Care providers, pharmacy, and demographics verified. Admitting dx: PSSHI SHIRLEY Strata: 3 PCP: Rajinder Gonzalez Specialists: Sapna (Oncology), Jennifer (Uro) Preferred Pharmacy: [facility] Insurance: [facility] A/B, [facility] Prescription Benefit: Yes LNOK: Miller Frias (Son), Farhad Frias (Son) Living Arrangements: Pt lives alone in a single story home with one step to enter ADLs/IADLs: Ind Transportation: Self, family. Denies concerns DME: Pulse ox., BP Machine, shower chair, grab bars. HHC/SNF: Pt states that her family has had HHC and been to a SNF in the past but has not had these personally. Pt has been to for OP OT in the past Pt?s goal: Home Plan: Home with family support, anticipate no additional needs. At this time, the pt states that she has plenty of family support at home and denies the need for HHC or OP Tx. Pt denies further questions or concerns at this time. Report given to MS3 MADINA TSE. Toñito Javier RN, CM
--- NOTE | 2024-05-22 16:24 | NURSING ---
All documentation by nursing surgical services director Roderick Ramires reviewed by nursing program manager Eliza PEREZN, RN.
[2024-05-22 22:00] VITALS: PULSE 76; RESP 16
[2024-05-22] MEDS: Timolol 0.5% 5ML OPTH.BTL 1 DRP OPHTHALMIC (22:28)
[2024-05-22] MEDS: Cephalexin 250 MG Capsule PO (22:35)
[2024-05-23 02:00] VITALS: BP 147/75; PULSE 76; RESP 16; TEMP 36.6; O2SAT 98
[2024-05-23] MEDS: 0.9% Saline Lock 10 ML Syringe IV (06:12)
[2024-05-23 06:42] LABS: Absolute Lymphocyte Count 2.24 X10^3/uL (0.83-4.51); Absolute Neutrophil Count 1.5 X10^3/uL (2.0-7.7); Basophil# 0.03 X10^3/uL; Basophil% 0.7 % (0-1); Eosinophil# 0.02 X10^3/uL; Eosinophils% 0.4 % (0-5); Hematocrit 27.7 % (37-47); Hemoglobin 8.8 g/dL (12.0-15.0); Lymphocyte # 2.24 X10^3/ul (0.83-4.51); Lymphocyte % 49.6 % (19-41); Mean Corp Hgb Conc 31.8 g/dL (32-36); Mean Corpuscular Hgb 27.2 pg (27.0-32.0); Mean Corpuscular Volume 85.8 fL (81-99); Mean Platelet Vol. 9.5 fl (6.2-12.0); Monocyte# 0.71 X10^3/uL; Monocyte% 15.7 % (0-10); NRBC Flagged by Analyzer 0.4 % (0-5); Neutrophil % 33.2 % (47-70); Platelet Count 337 K/mm3 (150-450); RBC Distribution Width CV 16.3 % (11.6-14.6); RBC Distribution Width SD 50.8 fl (35.1-43.9); Red Blood Count 3.23 M/mm3 (4.2-5.4); White Blood Count 4.5 K/mm3 (4.4-11.0)
[2024-05-23 06:57] LABS: Phosphorus 2.1 mg/dL (2.7-4.5)
[2024-05-23 07:00] LABS: Magnesium 1.5 mg/dL (1.5-2.2)
[2024-05-23 07:10] LABS: Anion Gap 8 (5-15); BUN 6 mg/dL (4-19); BUN/Creat Ratio 9.5 RATIO (10-20); Carbon Dioxide 25.4 mmol/L (21.0-32.0); Chloride 109 mmol/L (98-108); Creatinine, Serum 0.68 mg/dL (0.70-1.20); EST Glomerular Filtration Rate 94 (>60); Estimated Creatinine Clearance 64.39 ml/min (50-250); Glucose 140 mg/dL (70-99); Sodium Level 142 mmol/L (133-145)
--- NOTE | 2024-05-23 08:49 | PCM.PN.SRG ---
Subjective Subjective Patient evaluated resting comfortably in bed. She notes her abdominal pain has resolved and she is noting minimal amount of abdominal soreness in the epigastric region. She is tolerating clear liquids. She had multiple loose stools overnight, now clear loose stools. She denies any nausea, vomiting. Objective Data Objective Data Vital Signs: Vital Signs Temp Pulse Resp BP Pulse Ox O2 Del Method 97.9 F 76 16 147/75 H 98 Room Air 05/23/24 02:00 05/23/24 02:00 05/23/24 02:00 05/23/24 02:00 05/23/24 02:00 05/23/24 04:00 Oxygen Delivery Method Room Air Weight: 157 lb 13.616 oz Body Mass Index (BMI) 27.1 Intake & Output: Intake and Output for Last 24 Hours 05/21/24 05/22/24 05/23/24 23:59 23:59 23:59 Intake Total 1000 / 1000 2030 / 2030 1000 / 1000 Output Total 800 / 800 Balance 1000 / 200 1230 / 1230 1000 / 1000 Lab / Micro Data 05/23/24 06:15 05/23/24 06:15 Labs: Laboratory Results - last 24 hr 05/23/24 06:15: WBC 4.5, RBC 3.23 L, Hgb 8.8 L, Hct 27.7 L, MCV 85.8, MCH 27.2, MCHC 31.8 L, RDW Std Deviation 50.8 H, RDW Coeff of Elder 16.3 H, Plt Count 337, MPV 9.5, Immature Gran % (Auto) 0.400, Neut % (Auto) 33.2 L, Lymph % (Auto) 49.6 H, [place] % (Auto) 15.7 H, Eos % (Auto) 0.4, Baso % (Auto) 0.7, Absolute Neuts (auto) 1.5 L, Absolute Lymphs (auto) 2.24, Nucleated RBC % 0.4, Sodium 142, Potassium 3.0 L, Chloride 109 H, Carbon Dioxide 25.4, Anion Gap 8, BUN 6, Creatinine 0.68 L, Estim Creat Clear Calc 64.39, Est GFR (MDRD) Non-Af 94, BUN/Creatinine Ratio 9.5 L, Glucose 140 H, Calcium 7.0 L, Phosphorus 2.1 L, Magnesium 1.5 Radiography Diagnostic Testing: Radiology Impression Small Bowel X-Ray 05/22/24 09:00 IMPRESSION: Previously noted findings concerning for small bowel obstruction have resolved. Findings pertaining to the duodenum documented above. Reading Location: [place] [address] Physical Exam GI GI Narrative: Abdomen- soft, slight tenderness to the epigastric region. Positive bowel sounds. Assessment & Plan Assessment/Plan (1) Partial small bowel obstruction: PLAN: I am following this patient in conjunction with Dr. Mast. He will independently evaluate this patient. Labs reviewed. Potassium and phos replaced Small bowel follow-through demonstrates resolution of the previously mentioned small bowel obstruction Increase to full liquids Hopeful increase diet to transitional later and if patient tolerates hopeful discharge later today We will continue to monitor this patient Charges/Coding Visit Charges Inpatient E&M: 78809 Subs Hosp L2
[2024-05-23 09:50] VITALS: BP 132/59; PULSE 79; RESP 18; TEMP 36.6; O2SAT 97
[2024-05-23] MEDS: Enoxaparin 80 MG/0.8 ML Syringe 70 MG SC (10:06)
[2024-05-23] MEDS: Timolol 0.5% 5ML OPTH.BTL 1 DRP OPHTHALMIC (10:06)
[2024-05-23] MEDS: Vibegron 75 MG TABLET PO (10:07)
[2024-05-23] MEDS: Pyridoxine HCl 100 MG Tablet PO (10:07)
[2024-05-23] MEDS: DULoxetine Hcl 60 MG Capsule PO (10:07)
[2024-05-23] MEDS: Potassium Phosphate 15 MM in 0.9% Normal Saline (250mL Bag) 250 ML 125 MM IV (11:15)
--- NOTE | 2024-05-23 13:43 | DS.PCM_ITS ---
Providers Date of Admission: 05/21/24 Date of Discharge: 05/23/24 Primary Care Physician: Dr. Rajinder Gonzalez MD Consultations 05/21/24 16:57 Consult: General Surgery Routine Consulting Provider: Naresh Mast Reason for Consult: pSBO EMERGENT Consult: No MD Notified: Yes Date Notified: 05/21/24 Time Notified: 15:34 Method of Notification: ED Physician Initiated Reason For Visit: PSBO Diagnosis Discharge Diagnosis (1) Partial small bowel obstruction: Status: Acute Code(s): K56.600 - Partial intestinal obstruction, unspecified as to cause Medications at Discharge Home Medications Lactobacil.acidophilus-Bifido.animalis 5 billion cell sprinkle capsule (Probiotic) 1 cap PO DAILY 02/17/21 pyridoxine (vitamin B6) 100 mg tablet (Vitamin B-6) 100 mg PO DAILY 02/17/21 apixaban 5 mg tablet (Eliquis) 5 mg PO BID 05/21/24 cephalexin 250 mg capsule 250 mg PO QHS 05/21/24 duloxetine 60 mg capsule,delayed release 60 mg PO DAILY 05/21/24 mirabegron 50 mg tablet,extended release 24 hr (Myrbetriq) 50 mg PO DAILY 05/21/24 timolol maleate 0.5 % eye drops 1 drp ophthalmic (eye) BID 05/21/24 paclitaxel 6 mg/mL concentrate,intravenous 109.2 mg IV .WEEKLY BREAST CANCER 05/22/24 zoledronic acid 4 mg intravenous solution 4 mg IV .COMPLEX BONE METASTASES 05/22/24 Hospital Course Operations None Procedures - (CT abdomen pelvis with and without contrast/KUB abdomen/small bowel follow- through) Summary of Care Provided Minutes Spent on Discharge: 37 Hospital Course: Mrs. Frias is a 68-year-old female with a history of metastatic breast CA who presented to the emergency department at [facility] on 05/21/2024 with chief complaint of worsening abdominal bloating as well as intermittent nausea. Patient reported has been ongoing for the last couple weeks and she was having some abnormal bowel movements in terms of size. She was not having any belly pain until a couple of days when she started having said bloating. Vital signs on presentation showed a temperature of 97.8, heart rate was 107, respiratory 16, blood pressure was 158/83 and pulse ox was 98% on room air. CBC on presentation showed mild leukopenia, chronic stable anemia and a slight monocytosis. Chemistry panel was unremarkable. Serum glucose was 125. Liver functions were unremarkable. Lipase was normal. UA was not consistent with infection and relatively benign appearing. CT of the abdomen pelvis was performed and showed findings compatible with a small bowel obstruction having a transition point in this right lower quadrant above the terminal ileum with no pneumoperitoneum or drainable fluid collection and chronic stable findings consistent with her metastatic disease. Given the findings of small bowel obstruction emergency department general surgery was consulted and recommended conservative management with an NG tube, bowel rest and IV fluids. She was seen by general surgery this morning and stated that she had noted improvement with the NG tube and was passing a little bit of flatus. Small bowel follow-through was ordered and small bowel follow-through showed previous findings consistent with small bowel obstruction had resolved. General surgery advance her to clear liquid diet which she tolerated well. Her NG tube was removed and she was started on a full liquid diet which she tolerated well and was subsequently advanced to a transitional diet which again she tolerated well. Given this she was able to be discharged home. There is significant concern that the bowel obstruction was related to her metastatic breast CA given the fact that she has had no previous abdominal surgeries to create a scar tissue intra-abdominal he. This was discussed by general surgery with her primary oncologist, Dr. Curry, so he is aware of my concerns related to her bowel obstruction. She is aware that this could recur. She was discharged on a transitional diet instructed to follow-up with general surgery in 2 weeks, Dr. Curry as she is scheduled and her primary care physician as needed. She was able to be discharged home in stable condition on 05/23/2024. Discharge diagnoses: Partial small bowel obstruction Stage IV breast CA History of DVT Glaucoma Recurrent UTIs Depression Anxiety Physical Exam Const alert, oriented x3, no apparent distress and average body habitus; Negative for healthy appearing Constitutional Narrative: Upper middle-aged, white female who appears older than stated age sitting up in bed, appears comfortable, nontoxic General Appearance: cooperative, comfortable, well kempt and well developed Exam Limitations: no limitations HEENT normocephalic, head/scalp atraumatic and moist oral mucous membranes HEENT Narrative: NG tube has been removed Eyes conjunctivae normal Eyes Narrative: No scleral icterus Neck supple Neck Narrative: Trachea midline Resp normal respiratory effort, no retractions, no use of accessory muscles and clear to auscultation bilaterally Auscultation: Negative for rales, rhonchi or wheezes Cardio regular rate, regular rhythm, S1 normal heart sound, S2 normal heart sound, no murmurs, no rub, no gallops and no clicks GI normal to inspection, nondistended, normoactive bowel sounds, soft to palpation and non-tender Extremity no clubbing, cyanosis or edema Extremity Narrative: Pedal and radial pulses are 2+ Skin skin turgor normal, no jaundice, no petechiae and no mottling Neuro oriented x3, moves all extremities and no focal motor deficits Speech: speech normal Psych affect normal Psych Narrative: Very pleasant, interacts appropriately Weight / BMI Weight Weight: 71.6 kg Body Mass Index (BMI) 27.1 ABG / Lab / Microbiology Data 05/23/24 06:15 05/23/24 06:15 Laboratory: Laboratory Results - last 24 hr 05/23/24 06:15: WBC 4.5, RBC 3.23 L, Hgb 8.8 L, Hct 27.7 L, MCV 85.8, MCH 27.2, MCHC 31.8 L, RDW Std Deviation 50.8 H, RDW Coeff of Elder 16.3 H, Plt Count 337, MPV 9.5, Immature Gran % (Auto) 0.400, Neut % (Auto) 33.2 L, Lymph % (Auto) 49.6 H, [place] % (Auto) 15.7 H, Eos % (Auto) 0.4, Baso % (Auto) 0.7, Absolute Neuts (auto) 1.5 L, Absolute Lymphs (auto) 2.24, Nucleated RBC % 0.4, Sodium 142, P otassium 3.0 L, Chloride 109 H, Carbon Dioxide 25.4, Anion Gap 8, BUN 6, C reatinine 0.68 L, Estim Creat Clear Calc 64.39, Est GFR (MDRD) Non-Af 94, B UN/Creatinine Ratio 9.5 L, Glucose 140 H, Calcium 7.0 L, Phosphorus 2.1 L, Magnesium 1.5 Radiography Diagnostic Testing: Radiology Impression Small Bowel X-Ray 05/22/24 09:00 IMPRESSION: Previously noted findings concerning for small bowel obstruction have resolved. Findings pertaining to the duodenum documented above. Reading Location: [place] [address] D/C Instructions Discharge Diet: - (Transitional diet as directed by general surgery until otherwise changed) Discharge Activity: Return to Normal Activity DC O2, CPAP, BIPAP Needs Home O2 Discharge instructions: No Meaningful Use Info Meaningful Use Meaningful Use Diagnoses (Choose all that apply): None applicable Ischemic Stroke Statin Dosing Therapy Reference: STATIN DOSE THERAPY REFERENCE: * Patients > 75 years receive moderate or high dose statin therapy. * Patients 75 years or YOUNGER should receive HIGH intensity statin dose unless contraindicated. You will be required to document reason for non-treatment if statin daily dose does not meet guidelines. HIGH DOSE STATIN THERAPY DAILY Atorvastatin > than or = to 40 mg Rosuvastatin > than or = to 20 mg Amlodipine + Atorvastatin > than or = to 2.5/40 mg Ezetimibe + Simvastatin 10/80 mg Simvastatin 80mg Discharge Plan Admission Admit Date/Time: 05/21/24 15:33 Primary Reason for Your Visit: Abdominal pain/nausea/altered bowel movements Attending Provider: Mona Frankel Primary Care Provider: Rajinder Gonzalez Consulting Providers: Naresh Mast; Silvio Tapia Instructions Additional Instructions / Restrictions: 1. Please continue transitional diet as recommended by general surgery Discharge Orders/Prescriptions Prescriptions: Continued pyridoxine (vitamin B6) [Vitamin B-6] 100 mg Tablet 100 mg PO DAILY Probiotic 5 billion cell Capsule, Sprinkle 1 cap PO DAILY cephalexin 250 mg capsule 250 mg PO QHS timolol maleate 0.5 % drops 1 drp ophthalmic (eye) BID duloxetine 60 mg capsule,delayed release(DR/EC) 60 mg PO DAILY mirabegron [Myrbetriq] 50 mg tablet extended release 24 hr 50 mg PO DAILY Eliquis 5 mg tablet 5 mg PO BID zoledronic acid 4 mg recon soln 4 mg IV .COMPLEX Rx Instructions: PT GETS IV Q3 MONTHS. LAST DOSE 03/04/24 paclitaxel 6 mg/mL concentrate 109.2 mg IV .WEEKLY Rx Instructions: PER DR CURRY'S OFFICE, LAST DOSE WAS 109.2MG 05/13/24. PT GETS WEEKLY FOR 3 WEEKS, THEN OFF FOR 1 WEEK. ON CYCLE 09/27. Referrals / Follow Up: Rajinder Gonzalez MD [Primary Care Provider] - See Referral Note (As needed) Naresh Mast MD [Med Staff - Active Staff] - Within 2 Weeks Disposition Disposition (needs filled in before D/C Order can be placed): Home, Self Care Charges/Coding Visit Charges Inpatient E&M: 94587 Disch Hosp >30min
--- NOTE | 2024-05-23 13:53 | CHAPLAIN ---
Type of Pastoral Visit _x__ Initial Visit ___ Follow-up Visit ___ On-call Visit ___ General Patient Visit ___ Spiritual Assessment ___ Family Conference ___ Bereavement ___ Rapid Response ___ Code Blue ___ Other (describe below) Pastoral Care Referral From _x__ Patient ___ Family ___ Nurse ___ Physician ___ Wheel Press Clerk ___ Fourdrinier Operator ___ Other (describe below) Sacrament/Intervention _x__ Active listening ___ Anointing ___ Restorationist ___ Bereavement ___ Communion ___ Tanya exploration ___ ___ Life review _x__ Prayer ___ Reconciliation ___ Sacrament of Sick _x__ Supportive presence ___ Wedding ___ Other (describe below) Pastoral Comments patient and her son and [id number] are in the room; pt is making an attempt to eat liquids and states hope that she is able to do so; pt is connected to a local bahai and optimistic; pt welcomes presence and prayer for spiritual care support today; no other needs
--- NOTE | 2024-05-23 14:37 | CASEMGMT ---
MADINA TSE NOTE: DC order is in. RN CM to room. Pt sitting up in chair. Introduced self and role. Pt states she feels ready to go home and denies having any discharge needs or concerns. She states she has been up ad wander in room w/out difficulty. One of her children will be taking her home. Gustavo PEREZN MADINA CM
[2024-05-23 15:50] VITALS: BP 137/73; PULSE 73; RESP 16; TEMP 36.8; O2SAT 99
== END 2024-05-23 18:20 | disposition home or self-care (01) | DRG 389 ==
LOC: ED 15:36 → MS3 16:00
PROVIDERS: Physician Assistant; Admitting Provider Family Medicine; Emergency Provider Emergency Medicine; PCP Family Medicine; Visit Provider Internal Medicine
DX: K56.600 Partial intestinal obstruction, unspecified as to cause (principal); C79.51 Secondary malignant neoplasm of bone; C78.7 Secondary malignant neoplasm of liver and intrahepatic bile duct; D64.9 Anemia, unspecified; C50.919 Malignant neoplasm of unspecified site of unspecified female breast; Z66 Do not resuscitate; F32.A Depression, unspecified; F41.9 Anxiety disorder, unspecified; H40.9 Unspecified glaucoma; Z79.01 Long term (current) use of anticoagulants; Z96.82 Presence of neurostimulator; Z79.899 Other long term (current) drug therapy; Z91.041 Radiographic dye allergy status; Z86.718 Personal history of other venous thrombosis and embolism; Z87.440 Personal history of urinary (tract) infections; Z90.710 Acquired absence of both cervix and uterus
CPT/HCPCS: 36591; 74018; 74176; 74177; 74250; 80048; 80053; 81001; 83690; 83735; 84100; 85025; 99285; Q9967; A4216; J2405

== ENCOUNTER 2024-08-30 03:16 | Inpatient (IN) | payer MEDICARE, OTHER, SELFPAY ==
[2024-08-30] VITALS (7 sets, daily range): BP systolic 141–158; BP diastolic 77–91; PULSE 66–95; RESP 14–18; TEMP 36.4–36.9; O2SAT 94–98; BMI 27.8; BMI 27.5
--- NOTE | 2024-08-30 03:29 | CT_ITS ---
PROCEDURE: ABDOMEN/PELVIS W IV CONT ONLY 08/30/2024 REASON FOR EXAM: ?SBO TECHNIQUE: ABDOMEN/PELVIS W IV CONT ONLY Coronal and Sagittal reconstruction series were provided. CONTRAST: Isovue 370 VOLUME: 98 mL One or more dose reduction techniques were used (e.g., Automated exposure control, adjustment of the mA and/or kV according to patient size, use of iterative reconstruction technique. RADIATION DOSE SUMMARY: CTDlvol: 36 mGy DLP: 640 mGycm COMPARISON: 05/21/2024 FINDINGS: Under aerated lung bases. Heart size. Multiple liver cysts. Multiple gallstones. Unremarkable pancreas, spleen, adrenal glands. Multiple bilateral simple renal cysts. No hydronephrosis or ureteral stone. Normal bladder. Uterus is atrophied or has been removed. Advise correlation. No retroperitoneal or pelvic adenopathy. No free air. Small ascites. Stomach is unremarkable. Proximal bowel bowel loops are mildly distended. Distal small-bowel loops are decompressed. Normal appendix. Multiple diverticula. No acute large bowel findings. Lumbar spine scoliosis and degeneration. Status post right-sided mastectomy. Extensive predominantly sclerotic bone metastatic disease. CT/Abdomen/Pelvis W IV Cont ONLY IMPRESSION: Findings are most consistent with an early/partial distal small bowel obstructi on, similar to the previous examination. Small ascites likely related to the bowel obstruction. Extensive bone metastatic disease likely related to breast cancer. Consider small bowel follow-through examination for additional assessment. Reading Location: [place] [id number]
[2024-08-30] MEDS: 0.9% Normal Saline (1000mL) 1,000 ML 999 ML IV ×2 (03:48→06:05)
[2024-08-30] MEDS: DiphenhydrAMINE 50 MG/ML Syringe IV (03:58)
[2024-08-30 04:00] LABS: Hematocrit 37.3 % (37-47); Hemoglobin 11.8 g/dL (12.0-15.0); Immature Granulocytes Count 0.090 X10^3/uL (0.0-0.0); Mean Corp Hgb Conc 31.6 g/dL (32-36); Mean Corpuscular Volume 88.2 fL (81-99); Mean Platelet Vol. 8.8 fl (6.2-12.0); NRBC Flagged by Analyzer 0 % (0-5); Platelet Count 358 K/mm3 (150-450); RBC Distribution Width CV 19.8 % (11.6-14.6); RBC Distribution Width SD 64.5 fl (35.1-43.9); Red Blood Count 4.23 M/mm3 (4.2-5.4); White Blood Count 14.5 K/mm3 (4.4-11.0)
[2024-08-30 04:23] LABS: AST(SGOT) 24 U/L (<=31); Alanine Aminotransfer ALT/SGPT 24 U/L (<=34); Albumin, Serum 3.6 g/dL (3.4-4.8); Alkaline Phosphatase 60 U/L (35-104); Anion Gap 16 (5-15); BUN 18 mg/dL (4-19); BUN/Creat Ratio 15.9 RATIO (10-20); Bilirubin, Direct 0.32 mg/dL (0.00-0.30); Calcium,Total 9.7 mg/dL (7.6-11.0); Carbon Dioxide 28.7 mmol/L (21.0-32.0); Chloride 97 mmol/L (98-108); Estimated Creatinine Clearance 44.38 ml/min (50-250); Globulin 2.5 g/dL (2.2-4.2); Glucose 169 mg/dL (70-99); Lipase 28 U/L (13-75); Potassium 3.7 mmol/L (3.3-5.1)
--- NOTE | 2024-08-30 05:04 | EX.ED.DYSGE1 ---
HPI History of Present Illness Chief Complaint: Nausea/Vomiting Informant: patient Narrative Narrative: Patient is a 69-year-old female with past medical history of metastatic breast cancer as well as previous small bowel obstruction in May of this year. She states that on August 28 days ago she began to develop abdominal discomfort with nausea. She states that she also had very small bowel movements on the and . She denies any fevers or chills or known sick contact. However she states when she eats even if it is something as simple as an ice chip that it feels like it becomes stuck and then she has bouts of nausea and vomiting. She states that this feels similar nature to her bowel obstruction from May and with concern for that once again presents for evaluation. [facility] Medical History H/O small bowel obstruction GI bleed DVT (deep venous thrombosis) Wears glasses Post-menopausal Cancer Arthritis Kidney stones History of hiatal hernia Non-smoker Shortness of breath on exertion History of edema Breast cancer Home Medications ?Medication ?Instructions ?Recorded ?Last Taken ?Type Lactobacil.acidophilus-Bifido.animalis 1 cap PO DAILY 02/17/21 Unknown History 5 billion cell sprinkle capsule (Probiotic) pyridoxine (vitamin B6) 100 mg 100 mg PO DAILY 02/17/21 Unknown History tablet (Vitamin B-6) apixaban 5 mg tablet (Eliquis) 5 mg PO BID 05/21/24 05/21/24 History cephalexin 250 mg capsule 250 mg PO QHS 05/21/24 05/20/24 History duloxetine 60 mg capsule,delayed 60 mg PO DAILY 05/21/24 05/21/24 History release mirabegron 50 mg tablet,extended 50 mg PO DAILY 05/21/24 05/21/24 History release 24 hr (Myrbetriq) timolol maleate 0.5 % eye drops 1 drp ophthalmic (eye) BID 05/21/24 05/21/24 History zoledronic acid 4 mg intravenous 4 mg IV .COMPLEX BONE METASTASES 05/22/24 Unknown History solution elacestrant 345 mg tablet (Orserdu) 345 mg PO DAILY 08/30/24 Unknown History oxycodone 5 mg tablet 2.5 mg PO Q8H PRN PRN pain 08/30/24 Unknown History prednisone 20 mg tablet 20 mg PO DAILY 08/30/24 Unknown History prochlorperazine maleate 10 mg PO 08/30/24 Unknown History tablet Allergy/AdvReac Type Severity Reaction Status Date / Time iodine Allergy Other Verified 08/30/24 03:17 Sulfa (Sulfonamide Allergy Itching Verified 08/30/24 03:17 Antibiotics) Surgical History Hx of cystoscopy S/P foot surgery S/P hysterectomy S/P shoulder surgery S/P knee surgery S/P right mastectomy Social History (Updated 06/04/24 @ 10:06 by Alesha Jack LPN) Smoking Status: Never smoker alcohol intake: never substance use type: does not use ROS ROS ED Constitutional Constitutional ED: Denies chills or fever(s) ENT ENT ED: Denies sore throat Cardiovascular Cardiovascular: Denies chest pain Respiratory/Chest Respiratory/Chest: Denies cough or dyspnea Gastrointestinal Gastrointestinal: Reports abdominal pain, constipation, nausea and vomiting; Denies diarrhea Genitourinary Genitourinary ED: Denies dysuria Musculoskeletal Musculoskeletal: Denies myalgias Integumentary Denies rash Neurologic Neurologic: Denies headache(s) Hematologic/Lymphatic Hematologic/Lymphatic: Reports easy bleeding and easy bruising Allergic/Immunologic Allergic/Immunologic ED: Denies mouth swelling or tongue swelling EXAM Physical Exam Const Vital Signs: 08/30/24 03:16 08/30/24 05:16 08/30/24 06:10 Temperature 97.7 F L 98.4 F Temperature Source Oral Pulse Rate 95 88 91 Respiratory Rate 18 18 16 Blood Pressure 146/77 H 151/82 H 151/82 H Blood Pressure Mean 100 105 105 Pulse Ox 96 98 97 Oxygen Delivery Method Room Air Room Air Positive well nourished and well developed General Appearance ED: well developed; Negative for pallor HEENT Reports dry mucous membranes HEENT Narrative: Normocephalic atraumatic No tongue or lip swelling no oral lesions no airway edema or compromise; no secondary findings in the posterior pharynx to suggest infection Mucous membranes are dry and tacky Mouth ED: Yes dry mucous membranes Mouth: dry mucous membranes Eyes PERRL and EOMs intact bilaterally General Eye ED: Negative for scleral icterus Neck supple Neck Narrative: No nuchal rigidity or meningeal signs Resp normal respiratory effort and clear to auscultation bilaterally Cardio regular rate and regular rhythm Rate: other Other Details: Radial and carotid pulses are equal and symmetric GI no masses GI Narrative: Abdomen is soft with slight distention. Bowel sounds are normal active. There is mild pain with palpation in the left upper and lower abdomen. There is increased tympany at the site. No voluntary guarding or rigidity. No pulsatile mass or fluid wave. No peritoneal signs. Auscultation: normoactive bowel sounds Palpation: soft Extremity normal to inspection Neuro oriented x3, CN's II-XII intact bilaterally and no sensory deficits noted Sensorium / Orientation: alert Motor Exam: strength 5/5 throughout Psych mental status grossly normal Skin no rashes or lesions noted and No skin turgor normal Skin Narrative: Skin turgor is increased General Skin Exam: Negative for jaundice or pallor MDM MDM MDM Narrative Medical decision making narrative: Patient arrived to the ER slightly hypertensive but overall stable vitals. He has known metastatic breast cancer and history of small bowel obstruction. She reports she has had roughly 2 days of abdominal discomfort with minimal stool output as well as bouts of nausea and vomiting. She also reports a sensation of when she eats and drinks it feels that the food or fluid goes down hits an obstruction and then causes vomiting. Therefore with high likelihood for repeat SBO basic labs and a CT scan with IV contrast were obtained. Patient's white count is elevated at 14.5 which is most likely stress response. Her lactic is elevated at 4.2 which could correlate with dehydration as well as potential ischemia. CT scan did confirm changes consistent with early/partial small bowel obstruction similar to May of this year. Secondary to this finding the case was discussed with general surgeon Dr. Mast. He reviewed the CT scan and does recommend patient have an NG tube placed based on her abdominal distention and symptoms. He evaluated the patient in the ER and agrees to accept the patient to his service for continued care of her SBO. History & Record Review Discussion w/independent historian: Patient Lab Data Attestation: I reviewed the patient's lab results. Labs: Laboratory Results - last 24 hr 08/30/24 03:48 WBC 14.5 H RBC 4.23 Hgb 11.8 L Hct 37.3 MCV 88.2 MCH 27.9 MCHC 31.6 L RDW Std Deviation 64.5 H RDW Coeff of Elder 19.8 H Plt Count 358 MPV 8.8 Immature Gran % (Auto) 0.600 Neut % (Auto) 79.5 H Lymph % (Auto) 11.1 L [place] % (Auto) 8.3 Eos % (Auto) 0.2 Baso % (Auto) 0.3 Absolute Neuts (auto) 11.6 H Absolute Lymphs (auto) 1.61 Nucleated RBC % 0 Sodium 142 Potassium 3.7 Chloride 97 L Carbon Dioxide 28.7 Anion Gap 16 H BUN 18 Creatinine 1.16 Estim Creat Clear Calc 44.38 L Est GFR (MDRD) Non-Af 51 L BUN/Creatinine Ratio 15.9 Glucose 169 H Lactic Acid 4.2 H* Calcium 9.7 Total Bilirubin 0.84 Direct Bilirubin 0.32 H AST 24 ALT 24 Alkaline Phosphatase 60 Total Protein 6.1 Albumin 3.6 Globulin 2.5 Lipase 28 Radiography Diagnostic Testing: Clinical Impression(s) from Imaging Studies Abdomen/Pelvis CT 08/30/24 03:29 IMPRESSION: Findings are most consistent with an early/partial distal small bowel obstruction, similar to the previous examination. Small ascites likely related to the bowel obstruction. Extensive bone metastatic disease likely related to breast cancer. Consider small bowel follow-through examination for additional assessment. Reading Location: [place] [address] KUB as interpreted by the emergency medicine physician reveals the NG tube to be in proper position with a dilated stomach consistent with SBO Management Discussion w/another healthcare provider: Mixer Pigment Discharge Plan Dx/Rx/DC Orders Clinical Impression: Metastatic cancer, SBO (small bowel obstruction), Dehydration, Acute lactic acidosis Disposition Disposition: Acute Care Hospital [facility]
[2024-08-30] MEDS: Oxymetazoline 0.05% 1 SPRAY SPRAY.BTL 2 SPRAY NASAL (06:05)
--- NOTE | 2024-08-30 06:05 | RAD_ITS ---
PROCEDURE: ABDOMEN SINGLE VIEW (PORTABLE) 08/30/2024 REASON FOR EXAM: NG INSERTION TECHNIQUE: ABDOMEN SINGLE VIEW (PORTABLE) COMPARISON: None FINDINGS: Bowel gas: Fecal material is seen in the colon. The tip of the nasogastric tube is in the body of the stomach. RAD/Abdomen Single View (Portable) IMPRESSION: The tip of the nasogastric tube is in the body of the stomach. Reading Location: [facility]
--- NOTE | 2024-08-30 07:08 | PCM.HP.STD ---
HPI - General General Date of Service: 08/30/24 HPI Narrative SOFIA ARREDONDO, is a 69 F who presents to [facility] with complaints of nausea and vomiting that began 2 days ago. She states that she was celebrating her birthday and had gone out to breakfast for a meal of eggs, pancakes, sausage, and home fries. Shortly thereafter she began with bouts of vomiting. She reports that it felt as though she could eat only to a certain limit and then it backed up on her. She has had bowel movements nearly daily until the last day but has noted some narrowing of her stools. She is known to me for prior admission for a small bowel obstruction that was managed conservatively May of this year. She states that since that admission she has tried to maintain a restrictive diet foods from foods such as those with skins or salads. She, additionally, has a known history of metastatic breast cancer for the last 10 years. She reports that she has been working with oncology to find a tolerable alternative regimen. She was initially changed to a medication that she became very weak with taking and so she was pivoted to a new option just over the last 3 treatments. Patient's ER workup is notable for abnormal laboratories with leukocytosis and lactic acidosis. CT imaging abdomen pelvis was read by radiology as similar to her May study showing distal small bowel obstruction. Patient's only prior abdominal pelvic surgery is a hysterectomy. [facility] Medical History H/O small bowel obstruction GI bleed DVT (deep venous thrombosis) Wears glasses Post-menopausal Cancer Arthritis Kidney stones History of hiatal hernia Non-smoker Shortness of breath on exertion History of edema Breast cancer Home Medications ?Medication ?Instructions ?Recorded ?Last Taken ?Type Lactobacil.acidophilus-Bifido.animalis 1 cap PO DAILY 02/17/21 Unknown History 5 billion cell sprinkle capsule (Probiotic) pyridoxine (vitamin B6) 100 mg 100 mg PO DAILY 02/17/21 Unknown History tablet (Vitamin B-6) apixaban 5 mg tablet (Eliquis) 5 mg PO BID 05/21/24 05/21/24 History cephalexin 250 mg capsule 250 mg PO QHS 05/21/24 05/20/24 History duloxetine 60 mg capsule,delayed 60 mg PO DAILY 05/21/24 05/21/24 History release mirabegron 50 mg tablet,extended 50 mg PO DAILY 05/21/24 05/21/24 History release 24 hr (Myrbetriq) timolol maleate 0.5 % eye drops 1 drp ophthalmic (eye) BID 05/21/24 05/21/24 History zoledronic acid 4 mg intravenous 4 mg IV .COMPLEX BONE METASTASES 05/22/24 Unknown History solution elacestrant 345 mg tablet (Orserdu) 345 mg PO DAILY 08/30/24 Unknown History oxycodone 5 mg tablet 2.5 mg PO Q8H PRN PRN pain 08/30/24 Unknown History prednisone 20 mg tablet 20 mg PO DAILY 08/30/24 Unknown History prochlorperazine maleate 10 mg PO 08/30/24 Unknown History tablet Allergy/AdvReac Type Severity Reaction Status Date / Time iodine Allergy Other Verified 08/30/24 03:17 Sulfa (Sulfonamide Allergy Itching Verified 08/30/24 03:17 Antibiotics) Surgical History Hx of cystoscopy S/P foot surgery S/P hysterectomy S/P shoulder surgery S/P knee surgery S/P right mastectomy Social History (Updated 06/04/24 @ 10:06 by Alesha Jack LPN) Smoking Status: Never smoker alcohol intake: never substance use type: does not use Vital Signs Vital Signs Vital Signs: 08/30/24 03:16 08/30/24 05:16 08/30/24 06:10 Temperature 97.7 F L 98.4 F Temperature Source Oral Pulse Rate 95 88 91 Respiratory Rate 18 18 16 Blood Pressure 146/77 H 151/82 H 151/82 H Blood Pressure Mean 100 105 105 Pulse Ox 96 98 97 Oxygen Delivery Method Room Air Room Air Weight Weight: 162 lb 7.691 oz Body Mass Index (BMI) 27.8 Physical Exam Const oriented x3 Constitutional Narrative: Appears very fatigued Resp normal respiratory effort GI GI Narrative: Minimally distended, soft, nontender to palpation x 4 quadrants. Nasogastric tube in place draining watery gastric content of low-volume Results Lab / Micro Data 08/30/24 03:48 08/30/24 03:48 Labs: Laboratory Results - last 24 hr 08/30/24 03:48: WBC 14.5 H, RBC 4.23, Hgb 11.8 L, Hct 37.3, MCV 88.2, MCH 27.9, MCHC 31.6 L, RDW Std Deviation 64.5 H, RDW Coeff of Elder 19.8 H, Plt Count 358, MPV 8.8, Immature Gran % (Auto) 0.600, Neut % (Auto) 79.5 H, Lymph % (Auto) 11.1 L, [place] % (Auto) 8.3, Eos % (Auto) 0.2, Baso % (Auto) 0.3, Absolute Neuts (auto) 11.6 H, Absolute Lymphs (auto) 1.61, Nucleated RBC % 0, Sodium 142, Potassium 3.7, Chloride 97 L, Carbon Dioxide 28.7, Anion Gap 16 H, BUN 18, Creatinine 1.16, Estim Creat Clear Calc 44.38 L, Est GFR (MDRD) Non-Af 51 L, BUN/Creatinine Ratio 15.9, Glucose 169 H, Lactic Acid 4.2 H*, Calcium 9.7, Total Bilirubin 0.84, Direct Bilirubin 0.32 H, AST 24, ALT 24, Alkaline Phosphatase 60, Total Protein 6.1, Albumin 3.6, Globulin 2.5, Lipase 28 Imaging Radiology Impression Abdomen/Pelvis CT 08/30/24 03:29 IMPRESSION: Findings are most consistent with an early/partial distal small bowel obstruction, similar to the previous examination. Small ascites likely related to the bowel obstruction. Extensive bone metastatic disease likely related to breast cancer. Consider small bowel follow-through examination for additional assessment. Reading [facility] Assessment & Plan Assessment/Plan (1) SBO (small bowel obstruction): PLAN: Patient 69-year-old female who presents with recurrent small bowel obstruction. She mainly is presenting due to symptoms of nausea and vomiting. Laboratories consistent with dehydration. CT imaging largely consistent with prior study in May. Exam is benign. Continued high suspicion for peritoneal involvement by her metastatic breast cancer unfortunately, the decompression of the ileal segment appears rather long and its course. I discussed plans to proceed with resuscitative fluids and upfront conservative treatment of her small bowel obstruction, however, urged her and her [id number] to begin conversations with the family about possibility of needing to select a treatment course of a complete obstruction is found. I briefly touched on resection and how this could be a rather involved process with little upside benefit. Alternatively I shared that a loop ileostomy could be considered but highlighted that this option, too, carried its risks of malnutrition and dehydration/risk for renal dysfunction. Patient is very fatigued at this point but she and her [id number] commit to these discussions. For the interim we will admit patient for conservative management with ongoing IV fluid resuscitation and nasogastric decompression. Given patient's concurrent chemotherapy and anticoagulation will request medicine consultation as well. I did discuss patient's admission with her oncologist, Dr. Alejo, who confirmed the switch to a new chemotherapy agent that may take up to several weeks to have optimal effect. Will plan to continue open lines of communication to try to select the best care plan for Ms. Arredondo. Naresh Mast MD General Surgery Endocrine Surgery Pager: [facility] [address] [place] [address], [address] [place] [id number] Office: [phone] Charges/Coding Visit Charges Inpatient E&M: 53067 Init Hosp L2
--- NOTE | 2024-08-30 07:40 | PN.HOSP_ITS ---
Reason for Visit Chief Complaint: Nausea vomiting abdominal pain and constant Subjective Subjective Patient is a 69-year-old lady with history of metastatic breast CA, recent admission for small bowel obstruction in May 2024 who presented to the emergency department with a 2-day history of nausea vomiting abdominal pain and inability to have bowel movement. Imaging studies obtained on admission did demonstrate findings consistent with an early/partial distal small bowel obstruction. Patient was admitted to the surgical service hospitalist service was consulted to assist with management of patient medical comorbidities Objective Data Objective Data Vital Signs: Vital Signs Temp Pulse Resp BP Pulse Ox O2 Del Method 98.2 F 95 14 158/91 H 94 Room Air 08/30/24 07:00 08/30/24 07:00 08/30/24 07:00 08/30/24 07:00 08/30/24 07:00 08/30/24 07:00 Oxygen Delivery Method Room Air Weight: 73.7 kg Body Mass Index (BMI) 27.8 Intake & Output: Intake and Output for Last 24 Hours 08/28/24 08/29/24 08/30/24 23:59 23:59 23:59 Intake Total 1000 / 1000 Balance 1000 / 1000 Lab / Micro Data 08/30/24 03:48 08/30/24 03:48 Labs: Laboratory Results - last 24 hr 08/30/24 03:48: WBC 14.5 H, RBC 4.23, Hgb 11.8 L, Hct 37.3, MCV 88.2, MCH 27.9, MCHC 31.6 L, RDW Std Deviation 64.5 H, RDW Coeff of Elder 19.8 H, Plt Count 358, MPV 8.8, Immature Gran % (Auto) 0.600, Neut % (Auto) 79.5 H, Lymph % (Auto) 11.1 L, [place] % (Auto) 8.3, Eos % (Auto) 0.2, Baso % (Auto) 0.3, Absolute Neuts (auto) 11.6 H, Absolute Lymphs (auto) 1.61, Nucleated RBC % 0, Sodium 142, Potassium 3.7, Chloride 97 L, Carbon Dioxide 28.7, Anion Gap 16 H, BUN 18, Creatinine 1.16, Estim Creat Clear Calc 44.38 L, Est GFR (MDRD) Non-Af 51 L, BUN/Creatinine Ratio 15.9, Glucose 169 H, Lactic Acid 4.2 H*, Calcium 9.7, Total Bilirubin 0.84, Direct Bilirubin 0.32 H, AST 24, ALT 24, Alkaline Phosphatase 60, Total Protein 6.1, Albumin 3.6, Globulin 2.5, Lipase 28 Radiography Diagnostic Testing: Radiology Impression Abdomen/Pelvis CT 08/30/24 03:29 IMPRESSION: Findings are most consistent with an early/partial distal small bowel obstruction, similar to the previous examination. Small ascites likely related to the bowel obstruction. Extensive bone metastatic disease likely related to breast cancer. Consider small bowel follow-through examination for additional assessment. Reading Location: [place] [id number] Physical Exam Narrative GENERAL: cooperative HEENT: Atraumatic; normocephalic, NG tube in place EYES; Anicteric, Normal Conjunctiva NECK; supple, normal thyroid, RESPIRATORY: Diminished to auscultation CARDIOVASCULAR: Regular S1 S2, GI: Nondistended hypoactive bowel sounds : No Renal angle tenderness; EXTREMITIES: No edema, no clubbing, MUSCULOSKELETAL: no muscle wasting NEURO: Awake; no lateralizing signs. SKIN: No Rash PSYCH; Flat affect Assessment & Plan Assessment/Plan (1) SBO (small bowel obstruction): PLAN: Plan Patient is a 69-year-old lady with history of metastatic breast CA, recent admission for small bowel obstruction in May 2024 who presented to the emergency department with a 2-day history of nausea vomiting abdominal pain and inability to have bowel movement. Imaging studies obtained on admission did demonstrate findings consistent with an early/partial distal small bowel obstruction. Patient was admitted to the surgical service hospitalist service was consulted to assist with management of patient medical comorbidities 1. Small bowel obstruction ? Patient has been admitted to regular nursing floor conservative management initiated. Patient was admitted to the surgical service?Dr. Mast will defer subsequent management 2. Breast CA with bony metastasis ? Patient to follow-up with her primary oncologist Dr. Cowan following discharge 3. History of DVT ? Patient is on apixaban held on admission covered with heparin in case surgical intervention is needed for her small bowel obstruction 4. Depression with anxiety ? Patient is on duloxetine did continue 5. Overactive bladder ? Patient is on mirabegron 6. Recurrent UTIs ? Patient is on cephalexin 7. Anemia ? Secondary to chronic disorder monitoring H&H and transfuse if patient becomes symptomatic or hemoglobin falls below 7 8. DVT prophylaxis ? Already anticoagulated Time spent in the patient's overall evaluation,decision-making process, review of diagnostic data, adjustment of management, discussion with other providers, nursing nursing and ancillary staff involved in patient's care documentation, 50 Minutes Charges/Coding Visit Charges Inpatient E&M: 66925 [facility] Hosp L3
[2024-08-30 07:56] LABS: Reflex Lactate? Y
[2024-08-30] MEDS: Lactated Ringers 1,000 ML 150 ML IV ×3 (08:57→23:50)
--- NOTE | 2024-08-30 11:02 | CASEMGMT ---
Dx:SBO LACE:2 6-Clicks:22 Medical record reviewed and patient evaluated for identification of discharge planning needs. Based on this review, at this time criteria are not present to indicate a need for discharge planning. Will remain available to assist with discharge planning needs as identified or requested.
[2024-08-30] MEDS: Timolol 0.5% 5ML OPTH.BTL 1 DRP OPHTHALMIC ×2 (11:28→20:34)
[2024-08-30] MEDS: Pantoprazole Sodium 40 MG in 0.9% Normal Saline (100mL MB+) 100 ML 330 MG IV (11:34)
[2024-08-30 13:24] LABS: Hematocrit 32.3 % (37-47); Hemoglobin 10.0 g/dL (12.0-15.0); Immature Granulocytes Count 0.030 X10^3/uL (0.0-0.0); Mean Corp Hgb Conc 31.0 g/dL (32-36); Mean Corpuscular Volume 89.2 fL (81-99); Mean Platelet Vol. 8.7 fl (6.2-12.0); NRBC Flagged by Analyzer 0 % (0-5); Platelet Count 309 K/mm3 (150-450); RBC Distribution Width CV 19.2 % (11.6-14.6); RBC Distribution Width SD 62.2 fl (35.1-43.9); Red Blood Count 3.62 M/mm3 (4.2-5.4); White Blood Count 9.3 K/mm3 (4.4-11.0)
[2024-08-30 13:29] LABS: Prothrombin Time (Protime)PT. 15.5 SECONDS (11.7-14.9)
[2024-08-30 13:30] LABS: Partial Thromboplast Time 23.9 Seconds (24.1-36.2)
[2024-08-30] MEDS: HEPARIN/D5w 25,000 UNITS 25,000 UNITS/250 ML IV.SOLN. 10.9 UNITS CONT INF (14:31)
--- NOTE | 2024-08-30 14:44 | CHAPLAIN ---
Type of Pastoral Visit _x__ Initial Visit ___ Follow-up Visit ___ On-call Visit ___ General Patient Visit ___ Spiritual Assessment ___ Family Conference ___ Bereavement ___ Rapid Response ___ Code Blue ___ Other (describe below) Pastoral Care Referral From _x__ Patient ___ Family ___ Nurse ___ Physician ___ Fire Marshal [employer]inery ___ Truck Sales Manager ___ Other (describe below) Sacrament/Intervention ___ Active listening ___ Anointing ___ Muslim ___ Bereavement ___ Communion ___ Tanya exploration ___ ___ Life review ___ Prayer ___ Reconciliation ___ Sacrament of Sick ___ Supportive presence ___ Wedding ___ Other (describe below) Pastoral Comments patient is sound asleep and did not awaken to her name
--- NOTE | 2024-08-30 16:11 | CHAPLAIN ---
Type of Pastoral Visit ___ Initial Visit ___ Follow-up Visit ___ On-call Visit ___ General Patient Visit ___ Spiritual Assessment ___ Family Conference ___ Bereavement ___ Rapid Response ___ Code Blue ___ Other (describe below) Pastoral Care Referral From ___ Patient ___ Family ___ Nurse ___ Physician ___ [employer] Director ___ Tool And Die Maker Apprentice ___ Other (describe below) Sacrament/Intervention ___ Active listening ___ Anointing ___ Zoroastrianism ___ Bereavement ___ Communion ___ Tanya exploration ___ ___ Life review ___ Prayer ___ Reconciliation ___ Sacrament of Sick ___ Supportive presence ___ Wedding ___ Other (describe below) Pastoral Comments patient is sound asleep at two attempted visits; left a calling card
[2024-08-30 21:13] LABS: Partial Thromboplast Time > 200.0 Seconds (24.1-36.2)
[2024-08-31 02:38] VITALS: BP 160/88; PULSE 82; RESP 16; TEMP 36.5; O2SAT 96
[2024-08-31] MEDS: Lactated Ringers 1,000 ML 150 ML IV ×3 (05:39→20:27)
[2024-08-31] MEDS: 0.9% Saline Lock 10 ML Syringe IV (05:39)
[2024-08-31 05:51] LABS: Hematocrit 29.2 % (37-47); Hemoglobin 9.1 g/dL (12.0-15.0); Immature Granulocytes Count 0.040 X10^3/uL (0.0-0.0); Mean Corp Hgb Conc 31.2 g/dL (32-36); Mean Corpuscular Volume 89.0 fL (81-99); Mean Platelet Vol. 8.8 fl (6.2-12.0); NRBC Flagged by Analyzer 0 % (0-5); Platelet Count 314 K/mm3 (150-450); RBC Distribution Width CV 18.8 % (11.6-14.6); RBC Distribution Width SD 61.6 fl (35.1-43.9); Red Blood Count 3.28 M/mm3 (4.2-5.4); White Blood Count 10.4 K/mm3 (4.4-11.0)
[2024-08-31 06:11] LABS: Anion Gap 7 (5-15); BUN 19 mg/dL (4-19); BUN/Creat Ratio 26.0 RATIO (10-20); Calcium,Total 8.3 mg/dL (7.6-11.0); Carbon Dioxide 29.2 mmol/L (21.0-32.0); Chloride 103 mmol/L (98-108); Estimated Creatinine Clearance 64.00 ml/min (50-250); Glucose 111 mg/dL (70-99); Magnesium 1.6 mg/dL (1.5-2.2); Potassium 3.4 mmol/L (3.3-5.1)
[2024-08-31 07:26] LABS: Partial Thromboplast Time 111.8 Seconds (24.1-36.2)
--- NOTE | 2024-08-31 07:50 | PCM.PN.HOSP ---
Reason for Visit Chief Complaint: Nausea vomiting abdominal pain and constant Subjective Subjective Patient seen NG tube remains in place. Patient admitted passing gas however no bowel movement Objective Data Objective Data Vital Signs: Vital Signs Temp Pulse Resp BP Pulse Ox O2 Del Method 97.7 F L 82 16 160/88 H 96 Room Air 08/31/24 02:38 08/31/24 02:38 08/31/24 02:38 08/31/24 02:38 08/31/24 02:38 08/31/24 02:38 Oxygen Delivery Method Room Air Weight: 72.83 kg Body Mass Index (BMI) 27.5 Intake & Output: Intake and Output for Last 24 Hours 08/29/24 08/30/24 08/31/24 23:59 23:59 23:59 Intake Total 4257.48 / 4257.48 932.5 / 932.5 Output Total 200 / 200 140 / 140 Balance 4057.48 / 4057.48 792.5 / 792.5 Lab / Micro Data 08/31/24 05:35 08/31/24 05:35 Labs: Laboratory Results - last 24 hr 08/30/24 08:07: Lactic Acid 1.1 08/30/24 13:10: WBC 9.3, RBC 3.62 L, Hgb 10.0 L, Hct 32.3 L, MCV 89.2, MCH 27.6, MCHC 31.0 L, RDW Std Deviation 62.2 H, RDW Coeff of Elder 19.2 H, Plt Count 309, MPV 8.7, Immature Gran % (Auto) 0.300, Neut % (Auto) 81.0 H, Lymph % (Auto) 17.2 L, [place] % (Auto) 1.4, Eos % (Auto) 0.0, Baso % (Auto) 0.1, Absolute Neuts (auto) 7.6, Absolute Lymphs (auto) 1.61, Nucleated RBC % 0, PT 15.5 H, INR 1.2, APTT 23.9 L 08/30/24 20:25: APTT > 200.0 H* 08/31/24 05:35: WBC 10.4, RBC 3.28 L, Hgb 9.1 L, Hct 29.2 L, MCV 89.0, MCH 27.7, MCHC 31.2 L, RDW Std Deviation 61.6 H, RDW Coeff of Elder 18.8 H, Plt Count 314, MPV 8.8, Immature Gran % (Auto) 0.400, Neut % (Auto) 68.6, Lymph % (Auto) 20.6, [place] % (Auto) 9.9, Eos % (Auto) 0.3, Baso % (Auto) 0.2, Absolute Neuts (auto) 7.1, Absolute Lymphs (auto) 2.14, Nucleated RBC % 0, APTT Cancelled, Sodium 140, Potassium 3.4, Chloride 103, Carbon Dioxide 29.2, Anion Gap 7, BUN 19, Creatinine 0.71, Estim Creat Clear Calc 64.00, Est GFR (MDRD) Non-Af 91, BUN/Creatinine Ratio 26.0 H, Glucose 111 H, Calcium 8.3, Phosphorus 3.5, Magnesium 1.6 08/31/24 06:30: APTT 111.8 H* Radiography Diagnostic Testing: Radiology Impression KUB X-Ray 08/30/24 06:05 IMPRESSION: The tip of the nasogastric tube is in the body of the stomach. Reading Location: [place] [id number] Physical Exam Narrative GENERAL: cooperative HEENT: Atraumatic; normocephalic, NG tube in place EYES; Anicteric, Normal Conjunctiva NECK; supple, normal thyroid, RESPIRATORY: Diminished to auscultation CARDIOVASCULAR: Regular S1 S2, GI: Nondistended hypoactive bowel sounds : No Renal angle tenderness; EXTREMITIES: No edema, no clubbing, MUSCULOSKELETAL: no muscle wasting NEURO: Awake; no lateralizing signs. SKIN: No Rash PSYCH; Flat affect Assessment & Plan Assessment/Plan (1) SBO (small bowel obstruction): PLAN: Plan Patient is a 69-year-old lady with history of metastatic breast CA, recent admission for small bowel obstruction in May 2024 who presented to the emergency department with a 2-day history of nausea vomiting abdominal pain and inability to have bowel movement. Imaging studies obtained on admission did demonstrate findings consistent with an early/partial distal small bowel obstruction. Patient was admitted to the surgical service hospitalist service was consulted to assist with management of patient medical comorbidities 1. Small bowel obstruction ? Patient has been admitted to regular nursing floor conservative management initiated. Patient was admitted to the surgical service?Dr. Mast will defer subsequent management ? 08/31/2024;Patient seen NG tube remains in place. Patient admitted passing gas however no bowel movement. NG tube remains in place 2. Breast CA with bony metastasis ? Patient to follow-up with her primary oncologist Dr. Cowan following discharge 3. History of DVT ? Patient is on apixaban held on admission covered with heparin in case surgical intervention is needed for her small bowel obstruction 4. Depression with anxiety ? Patient is on duloxetine did continue 5. Overactive bladder ? Patient is on mirabegron 6. Recurrent UTIs ? Patient is on cephalexin 7. Anemia ? Secondary to chronic disorder monitoring H&H and transfuse if patient becomes symptomatic or hemoglobin falls below 7 ? 08/31/2024; patient hemoglobin down to 9.1 admitting hemoglobin was 11.8 we will continue with current monitoring 8. DVT prophylaxis ? Already anticoagulated Time spent in the patient's overall evaluation,decision-making process, review of diagnostic data, adjustment of management, discussion with other providers, nursing nursing and ancillary staff involved in patient's care documentation, 38 Minutes Charges/Coding Visit Charges Inpatient E&M: 12952 Subs Hosp L2
[2024-08-31 08:29] VITALS: BP 152/75; PULSE 93; RESP 18; TEMP 36.6; O2SAT 94
[2024-08-31] MEDS: Timolol 0.5% 5ML OPTH.BTL 1 DRP OPHTHALMIC ×2 (09:37→22:16)
--- NOTE | 2024-08-31 13:14 | RAD_ITS ---
EXAM: SMALL BOWEL SERIES ONLY CLINICAL HISTORY: SBO COMPARISON: Abdominal radiograph and CT abdomen and pelvis on 08/30/2024 TECHNIQUE: Sequentially obtained frontal radiographs of the abdomen. FINDINGS: See below RAD/Small Bowel Series Only IMPRESSION: Visualized portions of the enteric tube are in similar position. Contrast traverses through the stomach, small bowel, and colon and is to the le pricila of the rectum on the final image. Prominence of the small bowel folds, similar to CT performed yesterday. Heterogeneous bone marrow density, unchanged and in keeping with known metastat ic disease. Reading Location: [id number]
--- NOTE | 2024-08-31 13:17 | PN.SURG_ITS ---
Subjective Subjective Patient seen evaluated on rounds this afternoon. Patient states that she is passing some flatus which is new since yesterday. She does feel some degree of urge to have a bowel movement. No further nausea or vomiting. Minimal abdominal soreness Objective Data Objective Data Vital Signs: Vital Signs Temp Pulse Resp BP Pulse Ox O2 Del Method 97.7 F L 82 16 160/88 H 96 Room Air 08/31/24 02:38 08/31/24 02:38 08/31/24 02:38 08/31/24 02:38 08/31/24 02:38 08/31/24 02:38 Oxygen Delivery Method Room Air Weight: 160 lb 9 oz Body Mass Index (BMI) 27.5 Intake & Output: Intake and Output for Last 24 Hours 08/29/24 08/30/24 08/31/24 23:59 23:59 23:59 Intake Total 4257.48 / 4257.48 999.06 / 999.06 Output Total 200 / 200 140 / 140 Balance 4057.48 / 4057.48 859.06 / 859.06 Lab / Micro Data 08/31/24 05:35 08/31/24 05:35 Labs: Laboratory Results - last 24 hr 08/30/24 13:10: WBC 9.3, RBC 3.62 L, Hgb 10.0 L, Hct 32.3 L, MCV 89.2, MCH 27.6, MCHC 31.0 L, RDW Std Deviation 62.2 H, RDW Coeff of Elder 19.2 H, Plt Count 309, MPV 8.7, Immature Gran % (Auto) 0.300, Neut % (Auto) 81.0 H, Lymph % (Auto) 17.2 L, [place] % (Auto) 1.4, Eos % (Auto) 0.0, Baso % (Auto) 0.1, Absolute Neuts (auto) 7.6, Absolute Lymphs (auto) 1.61, Nucleated RBC % 0, PT 15.5 H, INR 1.2, APTT 23.9 L 08/30/24 20:25: APTT > 200.0 H* 08/31/24 05:35: WBC 10.4, RBC 3.28 L, Hgb 9.1 L, Hct 29.2 L, MCV 89.0, MCH 27.7, MCHC 31.2 L, RDW Std Deviation 61.6 H, RDW Coeff of Elder 18.8 H, Plt Count 314, MPV 8.8, Immature Gran % (Auto) 0.400, Neut % (Auto) 68.6, Lymph % (Auto) 20.6, [place] % (Auto) 9.9, Eos % (Auto) 0.3, Baso % (Auto) 0.2, Absolute Neuts (auto) 7.1, Absolute Lymphs (auto) 2.14, Nucleated RBC % 0, APTT Cancelled, Sodium 140, Potassium 3.4, Chloride 103, Carbon Dioxide 29.2, Anion Gap 7, BUN 19, Creatinine 0.71, Estim Creat Clear Calc 64.00, Est GFR (MDRD) Non-Af 91, B UN/Creatinine Ratio 26.0 H, Glucose 111 H, Calcium 8.3, Phosphorus 3.5, Magnesium 1.6 08/31/24 06:30: APTT 111.8 H* Physical Exam Narrative She is alert and oriented x 3. No acute distress. NG tube in place. Abdomen is mildly distended. It is soft. There is significant areas of tenderness Assessment & Plan Assessment/Plan (1) SBO (small bowel obstruction): PLAN: Plan The patient is a 69-year-old female with a history of metastatic breast cancer with presumed intra-abdominal metastatic disease. Patient was hospitalized earlier this year with a small bowel obstruction which resolved with conservative measures. She is now admitted with he had another small bowel obstruction likely secondary to intra-abdominal tumor burden. She is passing some flatus today which is new. Obviously this is encouraging. Plan today is to proceed with a small bowel follow-through study in hopes that this will be both therapeutic and diagnostic. Ideally would like to avoid surgery if at all possible given the presumed nature and cause of her obstruction. I explained to her that chemotherapy would be her best treatment for her disease overall. Patient is in agreement. Will await the results of small bowel follow-through. Will continue n.p.o. and IV fluids for now. Her steroids seem to be weaned off. Charges/Coding Visit Charges Inpatient E&M: 71440 Subs Hosp L3
[2024-08-31 14:00] VITALS: BP 145/74; PULSE 91; RESP 16; TEMP 36.6; O2SAT 100
[2024-08-31 16:26] LABS: Partial Thromboplast Time 60.8 Seconds (24.1-36.2)
[2024-08-31 20:10] VITALS: BP 151/89; PULSE 98; RESP 18; TEMP 37; O2SAT 94
[2024-08-31 21:25] LABS: Partial Thromboplast Time 58.2 Seconds (24.1-36.2)
[2024-08-31] MEDS: HEPARIN/D5w 25,000 UNITS 25,000 UNITS/250 ML IV.SOLN. 6.6 UNITS CONT INF (22:23)
[2024-09-01] MEDS: Lactated Ringers 1,000 ML 150 ML IV ×2 (03:28→09:50)
[2024-09-01] MEDS: Phenol/Sodium Phenolate 180ML 3 SPRAY MUCOUS MEM (03:32)
[2024-09-01 03:53] VITALS: BP 149/76; PULSE 88; RESP 18; TEMP 36.7; O2SAT 96
[2024-09-01 06:05] LABS: Partial Thromboplast Time 71.7 Seconds (24.1-36.2)
--- NOTE | 2024-09-01 08:05 | PCM.PN.HOSP ---
Reason for Visit Chief Complaint: Nausea vomiting abdominal pain and constant Subjective Subjective Patient seen. Having a bowel movement and is passing gas. An order was given for patient NG tube to be discontinued subsequently started on clear liquids. Also discontinued patient heparin drip restarted her apixaban Objective Data Objective Data Vital Signs: Vital Signs Temp Pulse Resp BP Pulse Ox O2 Del Method 98.1 F 88 18 149/76 H 96 Room Air 09/01/24 03:53 09/01/24 03:53 09/01/24 03:53 09/01/24 03:53 09/01/24 03:53 09/01/24 03:53 Oxygen Delivery Method Room Air Weight: 72.83 kg Body Mass Index (BMI) 27.5 Intake & Output: Intake and Output for Last 24 Hours 08/30/24 08/31/24 09/01/24 23:59 23:59 23:59 Intake Total 4257.48 / 4257.48 3143.65 / 3143.65 1020 / 1020 Output Total 200 / 200 140 / 140 550 / 550 Balance 4057.48 / 4057.48 3003.65 / 3003.65 470 / 470 Lab / Micro Data 08/31/24 05:35 08/31/24 05:35 Labs: Laboratory Results - last 24 hr 08/31/24 15:58: APTT 60.8 H 08/31/24 20:58: APTT 58.2 H 09/01/24 05:47: APTT 71.7 H Radiography Diagnostic Testing: Radiology Impression Small Bowel X-Ray 08/31/24 13:14 IMPRESSION: Visualized portions of the enteric tube are in similar position. Contrast traverses through the stomach, small bowel, and colon and is to the level of the rectum on the final image. Prominence of the small bowel folds, similar to CT performed yesterday. Heterogeneous bone marrow density, unchanged and in keeping with known metastatic disease. Reading Location: [id number] Physical Exam Narrative GENERAL: cooperative HEENT: Atraumatic; normocephalic, NG tube in place EYES; Anicteric, Normal Conjunctiva NECK; supple, normal thyroid, RESPIRATORY: Diminished to auscultation CARDIOVASCULAR: Regular S1 S2, GI: Nondistended hypoactive bowel sounds : No Renal angle tenderness; EXTREMITIES: No edema, no clubbing, MUSCULOSKELETAL: no muscle wasting NEURO: Awake; no lateralizing signs. SKIN: No Rash PSYCH; Flat affect Assessment & Plan Assessment/Plan (1) SBO (small bowel obstruction): PLAN: Plan Patient is a 69-year-old lady with history of metastatic breast CA, recent admission for small bowel obstruction in May 2024 who presented to the emergency department with a 2-day history of nausea vomiting abdominal pain and inability to have bowel movement. Imaging studies obtained on admission did demonstrate findings consistent with an early/partial distal small bowel obstruction. Patient was admitted to the surgical service hospitalist service was consulted to assist with management of patient medical comorbidities 1. Small bowel obstruction ? Patient has been admitted to regular nursing floor conservative management initiated. Patient was admitted to the surgical service?Dr. Mast will defer subsequent management ? 08/31/2024;Patient seen NG tube remains in place. Patient admitted passing gas however no bowel movement. NG tube remains in place ? 09/01/2024; patient underwent Gastrografin study the day prior. Currently having bowel movement this a.m. Case discussed with general surgery Dr. Livingston plan is to discontinue NG and start patient on clear liquids 2. Breast CA with bony metastasis ? Patient to follow-up with her primary oncologist Dr. Alejo following discharge 3. History of DVT ? Patient is on apixaban held on admission covered with heparin in case surgical intervention is needed for her small bowel obstruction ? 09/01/2024; discontinued heparin started patient on her home apixaban 4. Depression with anxiety ? Patient is on duloxetine did continue 5. Overactive bladder ? Patient is on mirabegron 6. Recurrent UTIs ? Patient is on cephalexin 7. Anemia ? Secondary to chronic disorder monitoring H&H and transfuse if patient becomes symptomatic or hemoglobin falls below 7 ? 08/31/2024; patient hemoglobin down to 9.1 admitting hemoglobin was 11.8 we will continue with current monitoring 8. DVT prophylaxis ? Already anticoagulated Time spent in the patient's overall evaluation,decision-making process, review of diagnostic data, adjustment of management, discussion with other providers, nursing nursing and ancillary staff involved in patient's care documentation, 36 Minutes Charges/Coding Visit Charges Inpatient E&M: 23933 Subs Hosp L2
[2024-09-01 08:27] LABS: Hematocrit 28.8 % (37-47); Hemoglobin 8.9 g/dL (12.0-15.0); Mean Corp Hgb Conc 30.9 g/dL (32-36); Mean Corpuscular Volume 88.3 fL (81-99); Mean Platelet Vol. 9.5 fl (6.2-12.0); Platelet Count 323 K/mm3 (150-450); RBC Distribution Width CV 18.8 % (11.6-14.6); RBC Distribution Width SD 61.1 fl (35.1-43.9); Red Blood Count 3.26 M/mm3 (4.2-5.4); White Blood Count 10.8 K/mm3 (4.4-11.0)
[2024-09-01 08:30] LABS: AST(SGOT) 22 U/L (<=31); Alanine Aminotransfer ALT/SGPT 18 U/L (<=34); Albumin, Serum 3.0 g/dL (3.4-4.8); Alkaline Phosphatase 45 U/L (35-104); Anion Gap 12 (5-15); BUN 10 mg/dL (4-19); BUN/Creat Ratio 15.1 RATIO (10-20); Calcium,Total 8.0 mg/dL (7.6-11.0); Carbon Dioxide 27.3 mmol/L (21.0-32.0); Chloride 101 mmol/L (98-108); Estimated Creatinine Clearance 64.00 ml/min (50-250); Globulin 2.0 g/dL (2.2-4.2); Glucose 90 mg/dL (70-99); Magnesium 1.3 mg/dL (1.5-2.2); Potassium 3.0 mmol/L (3.3-5.1)
[2024-09-01 08:45] VITALS: BP 146/92; PULSE 93; RESP 18; TEMP 36.8; O2SAT 94
[2024-09-01] MEDS: Pantoprazole Sodium 40 MG in 0.9% Normal Saline (100mL MB+) 100 ML 330 MG IV (08:51)
[2024-09-01] MEDS: Timolol 0.5% 5ML OPTH.BTL 1 DRP OPHTHALMIC (08:52)
[2024-09-01] MEDS: APIXABAN 5 MG TABLET PO (08:54)
--- NOTE | 2024-09-01 14:19 | PCM.PN.SRG ---
Subjective Subjective Patient seen and evaluated on rounds today. Patient notes continued passage of flatus as well as some bowel movements. Her small bowel follow-through was unremarkable and there was contrast in the colon by 3 hours and contrast in the rectum by 6 hours. No evidence of small bowel obstruction. She has been started on a clear liquid diet which she has been tolerating so far today. Objective Data Objective Data Vital Signs: Vital Signs Temp Pulse Resp BP Pulse Ox O2 Del Method 98.2 F 93 18 146/92 H 94 Room Air 09/01/24 08:45 09/01/24 08:45 09/01/24 08:45 09/01/24 08:45 09/01/24 08:45 09/01/24 08:45 Oxygen Delivery Method Room Air Weight: 160 lb 9 oz Body Mass Index (BMI) 27.5 Intake & Output: Intake and Output for Last 24 Hours 08/30/24 08/31/24 09/01/24 23:59 23:59 23:59 Intake Total 4257.48 / 4257.48 3143.65 / 3143.65 2143.75 / 2143.75 Output Total 200 / 200 140 / 140 550 / 550 Balance 4057.48 / 4057.48 3003.65 / 3003.65 1593.75 / 1593.75 Lab / Micro Data 09/01/24 05:47 09/01/24 05:47 Labs: Laboratory Results - last 24 hr 08/31/24 15:58: APTT 60.8 H 08/31/24 20:58: APTT 58.2 H 09/01/24 05:47: WBC 10.8, RBC 3.26 L, Hgb 8.9 L, Hct 28.8 L, MCV 88.3, MCH 27.3, MCHC 30.9 L, RDW Std Deviation 61.1 H, RDW Coeff of Elder 18.8 H, Plt Count 323, MPV 9.5, APTT 71.7 H, Sodium 140, Potassium 3.0 L, Chloride 101, Carbon Dioxide 27.3, Anion Gap 12, BUN 10, Creatinine 0.64 L, Estim Creat Clear Calc 64.00, Est GFR (MDRD) Non-Af 95, BUN/Creatinine Ratio 15.1, Glucose 90, Calcium 8.0, Phosphorus 3.4, Magnesium 1.3 L, Total Bilirubin 0.71, AST 22, ALT 18, Alkaline Phosphatase 45, Total Protein 5.0 L, Albumin 3.0 L, Globulin 2.0 L, Albumin/Globulin Ratio 1.6 Radiography Diagnostic Testing: Radiology Impression Small Bowel X-Ray 08/31/24 13:14 IMPRESSION: Visualized portions of the enteric tube are in similar position. Contrast traverses through the stomach, small bowel, and colon and is to the level of the rectum on the final image. Prominence of the small bowel folds, similar to CT performed yesterday. Heterogeneous bone marrow density, unchanged and in keeping with known metastatic disease. Reading Location: [id number] Physical Exam Narrative She is alert and oriented x 3. She is in no acute distress. Abdomen is soft, nontender and nondistended. Assessment & Plan Assessment/Plan (1) SBO (small bowel obstruction): PLAN: Plan The patient is a 69-year-old female with a history of metastatic breast cancer who presented with a small bowel obstruction which now seems to have resolved. She had a previous small bowel obstruction earlier in the year. It is presumed that this may be related to intra-abdominal tumor burden. Her oncologist is currently giving her medication that could certainly help with intra-abdominal metastasis. She states that she is doing well and would like to go home today if possible. I recommended that she stay on a clear liquid diet and very slowly advance her diet as tolerated when she gets home. I am okay for discharge as I expect she will do fine given her current clinical status. Instructed her to contact our office should any problems or concerns arise or if any symptoms recur Charges/Coding Visit Charges Inpatient E&M: 59714 Subs Hosp L3
--- NOTE | 2024-09-01 14:23 | PCM.DC.SUM ---
Providers Date of Admission: 08/30/24 Date of Discharge: 09/01/24 Primary Care Physician: Dr. Rajinder Gonzalez MD Reason For Visit: SBO Diagnosis Discharge Diagnosis (1) SBO (small bowel obstruction): Status: Acute Code(s): K56.609 - Unspecified intestinal obstruction, unspecified as to partial versus complete obstruction Plan The patient is a 69-year-old female with a history of metastatic breast cancer who presented with a small bowel obstruction which now seems to have resolved. She had a previous small bowel obstruction earlier in the year. It is presumed that this may be related to intra-abdominal tumor burden. Her oncologist is currently giving her medication that could certainly help with intra-abdominal metastasis. She states that she is doing well and would like to go home today if possible. I recommended that she stay on a clear liquid diet and very slowly advance her diet as tolerated when she gets home. I am okay for discharge as I expect she will do fine given her current clinical status. Instructed her to contact our office should any problems or concerns arise or if any symptoms recur Medications at Discharge Home Medications Lactobacil.acidophilus-Bifido.animalis 5 billion cell sprinkle capsule (Probiotic) 1 cap PO DAILY 02/17/21 pyridoxine (vitamin B6) 100 mg tablet (Vitamin B-6) 100 mg PO DAILY 02/17/21 apixaban 5 mg tablet (Eliquis) 5 mg PO BID 05/21/24 cephalexin 250 mg capsule 250 mg PO QHS 05/21/24 duloxetine 60 mg capsule,delayed release 60 mg PO DAILY 05/21/24 mirabegron 50 mg tablet,extended release 24 hr (Myrbetriq) 50 mg PO DAILY 05/21/24 timolol maleate 0.5 % eye drops 1 drp ophthalmic (eye) BID 05/21/24 zoledronic acid 4 mg intravenous solution 4 mg IV .COMPLEX BONE METASTASES 05/22/24 elacestrant 345 mg tablet (Orserdu) 345 mg PO DAILY 08/30/24 oxycodone 5 mg tablet 2.5 mg PO Q8H PRN PRN pain 08/30/24 prednisone 20 mg tablet 20 mg PO DAILY 08/30/24 prochlorperazine maleate 10 mg tablet PO 08/30/24 Hospital Course Operations None Summary of Care Provided Minutes Spent on Discharge: 15 Hospital Course: The patient is a 69-year-old female with a history of metastatic breast cancer who also has a history of a small bowel obstruction earlier this year. She presented to the emergency room during this admission with complaints of abdominal pain and distention. She was found to have a small bowel obstruction. She was admitted and NG tube was placed. She was allowed to decompress for about 24 hours and then a small bowel follow-through was performed. This was successful at documenting no persistent small bowel obstruction. This was both diagnostic and therapeutic as this seemed to stimulate some bowel function. She has been tolerating clear liquid diet and we anticipate discharge home later today Physical Exam Narrative Abdomen is soft, nontender nondistended. Const alert, oriented x3 and no apparent distress Weight / BMI Weight Weight: 160 lb 9 oz Body Mass Index (BMI) 27.5 ABG / Lab / Microbiology Data 09/01/24 05:47 09/01/24 05:47 Laboratory: Laboratory Results - last 24 hr 08/31/24 15:58: APTT 60.8 H 08/31/24 20:58: APTT 58.2 H 09/01/24 05:47: WBC 10.8, RBC 3.26 L, Hgb 8.9 L, Hct 28.8 L, MCV 88.3, MCH 27.3, MCHC 30.9 L, RDW Std Deviation 61.1 H, RDW Coeff of Elder 18.8 H, Plt Count 323, MPV 9.5, APTT 71.7 H, Sodium 140, Potassium 3.0 L, Chloride 101, Carbon Dioxide 27.3, Anion Gap 12, BUN 10, Creatinine 0.64 L, Estim Creat Clear Calc 64.00, Est GFR (MDRD) Non-Af 95, BUN/Creatinine Ratio 15.1, Glucose 90, Calcium 8.0, Phosphorus 3.4, Magnesium 1.3 L, Total Bilirubin 0.71, AST 22, ALT 18, Alkaline Phosphatase 45, Total Protein 5.0 L, Albumin 3.0 L, Globulin 2.0 L, Albumin/Globulin Ratio 1.6 Radiography Diagnostic Testing: Radiology Impression Small Bowel X-Ray 08/31/24 13:14 IMPRESSION: Visualized portions of the enteric tube are in similar position. Contrast traverses through the stomach, small bowel, and colon and is to the level of the rectum on the final image. Prominence of the small bowel folds, similar to CT performed yesterday. Heterogeneous bone marrow density, unchanged and in keeping with known metastatic disease. Reading Location: [id number] D/C Instructions Discharge Activity: Return to Normal Activity and May Shower Call your doctor if your incision/area has: - (Return of nausea vomiting or bloating) DC O2, CPAP, BIPAP Needs Home O2 Discharge instructions: No DC home with Oxygen: No Meaningful Use Info Meaningful Use Meaningful Use Diagnoses (Choose all that apply): None applicable Discharge Plan Admission Admit Date/Time: 08/30/24 07:23 Primary Reason for Your Visit: Small bowel obstruction Attending Provider: Naresh Mast Primary Care Provider: Rajinder Gonzalez Discharge Orders/Prescriptions Prescriptions: Continued pyridoxine (vitamin B6) [Vitamin B-6] 100 mg Tablet 100 mg PO DAILY Probiotic 5 billion cell Capsule, Sprinkle 1 cap PO DAILY oxycodone 5 mg tablet 2.5 mg PO Q8H PRN PRN (Reason: pain) Orserdu 345 mg tablet 345 mg PO DAILY prednisone 20 mg tablet 20 mg PO DAILY prochlorperazine maleate 10 mg tablet PO cephalexin 250 mg capsule 250 mg PO QHS timolol maleate 0.5 % drops 1 drp ophthalmic (eye) BID duloxetine 60 mg capsule,delayed release(DR/EC) 60 mg PO DAILY mirabegron [Myrbetriq] 50 mg tablet extended release 24 hr 50 mg PO DAILY Eliquis 5 mg tablet 5 mg PO BID zoledronic acid 4 mg recon soln 4 mg IV .COMPLEX Rx Instructions: PT GETS IV Q3 MONTHS. LAST DOSE 03/04/24 Referrals / Follow Up: Rajinder Gonzalez MD [Primary Care Provider] - Disposition Disposition (needs filled in before D/C Order can be placed): Home, Self Care
== END 2024-09-01 16:15 | disposition home or self-care (01) | DRG 389 ==
LOC: ED 07:07 → MS3 08:00
PROVIDERS: Internal Medicine; Admitting Provider Surgery; Emergency Provider Emergency Medicine; PCP Family Medicine; Visit Provider Surgery
DX: K56.600 Partial intestinal obstruction, unspecified as to cause (principal); E87.20 Acidosis, unspecified; C79.89 Secondary malignant neoplasm of other specified sites; C79.51 Secondary malignant neoplasm of bone; D63.8 Anemia in other chronic diseases classified elsewhere; E86.0 Dehydration; C50.911 Malignant neoplasm of unspecified site of right female breast; F41.8 Other specified anxiety disorders; N32.81 Overactive bladder; Z79.01 Long term (current) use of anticoagulants; Z79.899 Other long term (current) drug therapy; Z86.718 Personal history of other venous thrombosis and embolism; Z87.19 Personal history of other diseases of the digestive system; Z90.11 Acquired absence of right breast and nipple; Z90.710 Acquired absence of both cervix and uterus; Z87.440 Personal history of urinary (tract) infections
CPT/HCPCS: 36415; 36591; 74018; 74177; 74250; 80048; 80053; 80076; 83605; 83690; 83735; 84100; 85025; 85027; 85610; 85730; 97802; 99285; Q9967; A4216; J2405

== ENCOUNTER 2024-10-25 06:57 | Emergency (ER) | payer MEDICARE, OTHER, SELFPAY ==
[2024-10-25 06:58] VITALS: BP 165/115; PULSE 109; RESP 18; TEMP 36.5; O2SAT 98; BMI 29.2
[2024-10-25 07:01] VITALS: BP 165/115; PULSE 108; RESP 18; TEMP 36.5; O2SAT 100
--- NOTE | 2024-10-25 07:09 | CT_ITS ---
PROCEDURE: ABDOMEN/PELVIS WITH CONTRAST 10/25/2024 REASON FOR EXAM: ABD PAIN, NAUSEA, ABD TUMOR History of bowel obstruction and breast carcinoma. TECHNIQUE: Procedure Code: [id number] Modality: CT Procedure: ABDOMEN/PELVIS WITH CONTRAST Coronal and Sagittal reconstruction series were provided. CONTRAST: Isovue-300 VOLUME: 100 mL One or more dose reduction techniques were used (e.g., Automated exposure control, adjustment of the mA and/or kV according to patient size, use of iterative reconstruction technique. RADIATION DOSE SUMMARY: CTDlvol: 13.15 mGy DLP: 894.38 mGycm COMPARISON: Prior study dated August 30, 2024. FINDINGS: Lung bases: Lung bases are clear. The patient is status post right mastectomy. A port a catheter is seen in the superior vena cava. Liver: Once again, multiple cysts are seen in the right lobe of the liver. The largest is seen along its inferior medial portion of the right lobe. This measures 5 cm by 4.1 cm. Gallbladder: Multiple small gallstones. Spleen: The spleen is small in size. Pancreas: Normal size without evidence of mass surrounding inflammation or ductal dilation. Adrenals: Unremarkable Kidneys: Stable bilateral parapelvic renal cysts. Bladder: Urinary bladder is empty. Reproductive Organs: Prior hysterectomy. Adnexal regions are unremarkable. Bowel: There is a fluid-filled stomach with residual food particles in it. Multiple fluid-filled small bowel loops although the measure within normal limit. Questionable early distal small bowel obstruction. Fecal material is seen throughout the colon. Appendix: Not visualized. Lymph nodes: Unremarkable. Vasculature: Mild diffuse atherosclerotic calcifications are noted. Peritoneum / Retroperitoneum: Small amount of perihepatic fluid. Small amount of fluid is seen in the right pericolic gutter. Bones: Diffuse sclerotic metastasis seen throughout the visualized lumbar and thoracic vertebrae as well as the pelvic bones. CT/Abdomen/Pelvis WITH Contrast IMPRESSION: Stable hepatic cysts. Fluid distention of the stomach as well as residual food particles. Fluid-filled small bowel loops. Possible distal partial or early small-bowel o bstruction. Follow-up recommended. Multiple small gallstones. Small amount of ascites as described. Diffuse sclerotic bony metastasis as described. Reading Location: [id number]
--- NOTE | 2024-10-25 07:10 | ED.VIS.GI ---
HPI HPI - GI History of Present Illness Chief Complaint: Abd Pain Informant: patient and family Narrative Narrative: 69-year-old female with history of metastatic breast cancer presenting with diffuse abdominal tightness/discomfort and nausea that started last night with eating. She states she is on an oral chemotherapeutic agent for this cancer, follows with Dr. Alejo, and yesterday people were bringing her meals, she states all of this discomfort started while eating one of them. Since then she has had decreased bowel movement but still has had small amounts. Nauseated but has not vomited. Pain does not radiate to chest or back. No fevers or chills. No urinary symptoms. No prior blood per rectum or melena. She states this feels similar to 2 other times that she was in the ER for this and diagnosed with bowel obstructions related to cancer in her abdomen. Additionally she has a lot of bruising to her right lower leg because she twisted her ankle about a week ago, she had x-rays that were negative, she takes Eliquis. She states she has neuropathic pain from neuropathy, but other than that she has been doing okay and getting around. [facility] Medical History Bowel disease Anemia Dry eye Post-menopausal atrophic vaginitis SBO (small bowel obstruction) H/O small bowel obstruction GI bleed DVT (deep venous thrombosis) Wears glasses Post-menopausal Cancer Arthritis Kidney stones History of hiatal hernia Non-smoker Shortness of breath on exertion History of edema Breast cancer Home Medications ?Medication ?Instructions ?Recorded ?Last Taken ?Type Lactobacil.acidophilus-Bifido.animalis 1 cap PO DAILY 02/17/21 Unknown History 5 billion cell sprinkle capsule (Probiotic) pyridoxine (vitamin B6) 100 mg 100 mg PO DAILY 02/17/21 Unknown History tablet (Vitamin B-6) apixaban 5 mg tablet (Eliquis) 5 mg PO BID 05/21/24 05/21/24 History duloxetine 60 mg capsule,delayed 60 mg PO DAILY 05/21/24 05/21/24 History release timolol maleate 0.5 % eye drops 1 drp ophthalmic (eye) BID 05/21/24 05/21/24 History zoledronic acid 4 mg intravenous 4 mg IV .COMPLEX BONE METASTASES 05/22/24 Unknown History solution elacestrant 345 mg tablet (Orserdu) 345 mg PO DAILY 08/30/24 Unknown History oxycodone 5 mg tablet 2.5 mg PO Q8H PRN PRN pain 08/30/24 Unknown History prednisone 20 mg tablet 20 mg PO DAILY 08/30/24 Unknown History prochlorperazine maleate 10 mg PO 08/30/24 Unknown History tablet nitrofurantoin 100 mg PO BID #14 caps 10/02/24 Unknown Rx monohydrate/macrocrystals 100 mg capsule (Macrobid) vibegron 75 mg tablet (Gemtesa) 75 mg PO QDAY 10/02/24 Unknown History cephalexin 500 mg capsule 500 mg PO Q6 #20 CAPSULES 10/25/24 Unknown Rx ondansetron 8 mg disintegrating 8 mg PO Q8H PRN nausea and 10/25/24 Unknown Rx tablet vomiting #12 tabs Allergy/AdvReac Type Severity Reaction Status Date / Time iodine Allergy Other Verified 10/25/24 06:58 Sulfa (Sulfonamide Allergy Itching Verified 10/25/24 06:58 Antibiotics) Family History Other Bone cancer Breast cancer Diabetes Heart disease Miscarriage Surgical History History of bunionectomy H/O uterosacral colpopexy H/O colonoscopy H/O breast biopsy Hx of cystoscopy S/P foot surgery S/P hysterectomy S/P shoulder surgery S/P knee surgery S/P right mastectomy Social History Smoking Status: Never smoker alcohol intake: never substance use type: does not use do you feel safe at home: Yes ROS ROS ED Constitutional Constitutional ED: Reports malaise; Denies chills or fever(s) Eyes Eyes: Denies change in vision or diplopia ENT ENT ED: Denies rhinorrhea or sore throat Cardiovascular Cardiovascular: Denies chest pain or palpitations Respiratory/Chest Respiratory/Chest: Denies cough or dyspnea Gastrointestinal Gastrointestinal: Reports abdominal pain and nausea; Denies diarrhea, melena or vomiting Genitourinary Genitourinary ED: Denies dysuria or hematuria Musculoskeletal Musculoskeletal: Denies back pain or neck pain Integumentary Denies abscess or rash Neurologic Neurologic: Denies headache(s), paresthesias or weakness Psychiatric Psychiatric: Denies anxiety or suicidal thoughts EXAM Physical Exam Const Vital Signs: 10/25/24 06:58 10/25/24 07:01 10/25/24 08:01 Temperature 97.7 F L 97.7 F L 97.7 F L Temperature Source Oral Oral Temporal Pulse Rate 109 H 108 H 99 Respiratory Rate 18 18 16 Blood Pressure 165/115 H 165/115 H 167/94 H Blood Pressure Mean 131 131 118 Pulse Ox 98 100 97 Oxygen Delivery Method Room Air Room Air Room Air 10/25/24 09:00 Temperature 98.3 F Temperature Source Oral Pulse Rate 71 Respiratory Rate 16 Blood Pressure 176/96 H Blood Pressure Mean 122 Pulse Ox 97 Oxygen Delivery Method Room Air Positive well nourished and well developed General Appearance ED: well developed and NAD HEENT Reports moist mucous membranes normocephalic and atraumatic Eyes PERRL and EOMs intact bilaterally Neck full ROM and supple Resp normal respiratory effort and clear to auscultation bilaterally Cardio regular rate, regular rhythm and no murmurs GI GI Narrative: diffuse mild tenderness without palpable hernia or guarding/rebound. mildly distended. Auscultation: normoactive bowel sounds Palpation: soft Back/Spine no CVA tenderness General Back: other FROM Extremity normal to inspection General Extremety ED: Yes edema; Negative for pulses abnormal or tenderness General Extremity: edema right lower extremity mild (w/ diffuse ecchymoses distal right lower leg. 2+/4 DP pulse.); Negative for pulses abnormal Neuro oriented x3, CN's II-XII intact bilaterally and no sensory deficits noted Sensorium / Orientation: awake and alert Motor Exam: strength 5/5 throughout Skin no rashes or lesions noted and no wounds MDM MDM MDM Narrative Medical decision making narrative: Patient is concerned about a bowel obstruction, if she has one it probably is a partial given her symptoms, so I am obtaining a CT with oral and IV contrast in addition to labs, all of which are noted showing a significant leukocytosis. She was treated with IV fluids, analgesics and antiemetics, in addition to pretreatment for iodine/IV contrast allergy, she has been pretreated successfully in the past when receiving these. This was done today, she was observed for well up to the CT scan, she had no adverse events/symptoms. I reviewed the CT images as well as the result which I agree with, it is consistent with air-fluid levels in the small bowel, and possibly an early partial bowel obstruction, but there is nothing definitive to show that. On reexamination, she is feeling much better and does not have any pain right now. She tolerated oral contrast without any vomiting. I discussed inpatient observation/admission for continued monitoring and treatment with IV fluids, she declines and really does not want to and wants to go home and try oral fluids/broth, which I think is reasonable, as there is some measurable risk to admitting her to the hospital while on chemotherapy. Her urine did show signs of infection, she is not having any symptoms, given her leukocytosis I am sending this for culture and I am going to treat her with antibiotics only because she is immunocompromised and has a significant leukocytosis. She is encouraged and welcome to return if she gets worse, and she is in agreement and wants to go forward with that plan. Discussed also with her son, everyone seems to be on the same page here. Lab Data Attestation: I reviewed the patient's lab results. Labs: Laboratory Results - last 24 hr 10/25/24 10/25/24 07:33 08:20 WBC 21.1 H RBC 4.75 Hgb 12.7 Hct 39.3 MCV 82.7 MCH 26.7 L MCHC 32.3 RDW Std Deviation 46.9 H RDW Coeff of Elder 16.3 H Plt Count 346 MPV 9.4 Immature Gran % (Auto) 2.000 H Neut % (Auto) 84.5 H Lymph % (Auto) 8.8 L Pickett % (Auto) 4.5 Eos % (Auto) 0.0 Baso % (Auto) 0.2 Absolute Neuts (auto) 17.8 H Absolute Lymphs (auto) 1.85 Nucleated RBC % 0.3 Sodium 139 Potassium 3.6 Chloride 100 Carbon Dioxide 24.1 Anion Gap 15 BUN 22 H Creatinine 0.71 Estim Creat Clear Calc 65.84 Est GFR (MDRD) Non-Af 92 BUN/Creatinine Ratio 31.1 H Glucose 173 H Calcium 8.0 Total Bilirubin 0.68 AST 21 ALT 19 Alkaline Phosphatase 47 Total Protein 5.7 L Albumin 3.5 Globulin 2.2 Albumin/Globulin Ratio 1.6 Lipase 47 Urine Color Yellow Urine Clarity Cloudy Urine pH 6.5 Ur Specific [place] 1.015 Urine Protein 30 H Urine Glucose (UA) Normal Urine Ketones Negative Urine Occult Blood 25 H Urine Nitrite Negative Urine Bilirubin Negative Urine Urobilinogen 1 H Ur Leukocyte Esterase 100 H Urine RBC 0-5 SEEN Urine WBC 25-50 SEEN Ur Squamous Epith Cells 0 SEEN Urine Bacteria 3+ Urine Mucus 0 SEEN Radiography Diagnostic Testing: Clinical Impression(s) from Imaging Studies Abdomen/Pelvis CT 10/25/24 07:09 IMPRESSION: Stable hepatic cysts. Fluid distention of the stomach as well as residual food particles. Fluid-filled small bowel loops. Possible distal partial or early small-bowel obstruction. Follow-up recommended. Multiple small gallstones. Small amount of ascites as described. Diffuse sclerotic bony metastasis as described. Reading Location: [id number] Discharge Plan Triage Chief Complaint: Abd Pain ED Provider: Dion Madison Dx/Rx/DC Orders Clinical Impression: Diffuse abdominal pain, Metastatic cancer, Leukocytosis, Acute UTI, Anticoagulated on apixaban, Acquired immunocompromised state Instructions: ED Full Liquid Diet Prescriptions: New ondansetron 8 mg tablet,disintegrating 8 mg PO Q8H PRN (Reason: nausea and vomiting) Qty: 12 0RF cephalexin 500 mg capsule 500 mg PO Q6 Qty: 20 0RF No Action Gemtesa 75 mg tablet 75 mg PO QDAY nitrofurantoin monohyd/m-cryst [Macrobid] 100 mg capsule 100 mg PO BID Qty: 14 0RF Rx Instructions: must administer with a meal/food pyridoxine (vitamin B6) [Vitamin B-6] 100 mg Tablet 100 mg PO DAILY Probiotic 5 billion cell Capsule, Sprinkle 1 cap PO DAILY oxycodone 5 mg tablet 2.5 mg PO Q8H PRN PRN (Reason: pain) Orserdu 345 mg tablet 345 mg PO DAILY prednisone 20 mg tablet 20 mg PO DAILY prochlorperazine maleate 10 mg tablet PO timolol maleate 0.5 % drops 1 drp ophthalmic (eye) BID duloxetine 60 mg capsule,delayed release(DR/EC) 60 mg PO DAILY Eliquis 5 mg tablet 5 mg PO BID zoledronic acid 4 mg recon soln 4 mg IV .COMPLEX Rx Instructions: PT GETS IV Q3 MONTHS. LAST DOSE 03/04/24 Primary Care Provider: Rajinder Gonzalez Referrals: Arias Alejo, [Med Staff - Active Staff] - 3-5 Days (or return to ER for worsening abdominal symptoms) Activity Restrictions/Additional Instructions: If you feel like you are getting thrush, reasonable to do nystatin swish and spit 3 times daily while on antibiotic. To full liquid diet for at least 48 hours, advance your diet gradually from there if you are doing well and feeling okay. If you get worse, feel free to return to the hospital. Print Language: Qatari Disposition Disposition: Home, Self Care
[2024-10-25] MEDS: 0.9% Normal Saline (1000mL) 1,000 ML 200 ML IV (07:27)
[2024-10-25 07:47] LABS: Hematocrit 39.3 % (37-47); Hemoglobin 12.7 g/dL (12.0-15.0); Immature Granulocytes Count 0.420 X10^3/uL (0.0-0.0); Mean Corp Hgb Conc 32.3 g/dL (32-36); Mean Corpuscular Volume 82.7 fL (81-99); Mean Platelet Vol. 9.4 fl (6.2-12.0); NRBC Flagged by Analyzer 0.3 % (0-5); Platelet Count 346 K/mm3 (150-450); RBC Distribution Width CV 16.3 % (11.6-14.6); RBC Distribution Width SD 46.9 fl (35.1-43.9); Red Blood Count 4.75 M/mm3 (4.2-5.4); White Blood Count 21.1 K/mm3 (4.4-11.0)
[2024-10-25 08:01] VITALS: BP 167/94; PULSE 99; RESP 16; TEMP 36.5; O2SAT 97
[2024-10-25 08:09] LABS: AST(SGOT) 21 U/L (<=31); Alanine Aminotransfer ALT/SGPT 19 U/L (<=34); Albumin, Serum 3.5 g/dL (3.4-4.8); Alkaline Phosphatase 47 U/L (35-104); Anion Gap 15 (5-15); BUN 22 mg/dL (4-19); BUN/Creat Ratio 31.1 RATIO (10-20); Calcium,Total 8.0 mg/dL (7.6-11.0); Carbon Dioxide 24.1 mmol/L (21.0-32.0); Chloride 100 mmol/L (98-108); Estimated Creatinine Clearance 65.84 ml/min (50-250); Globulin 2.2 g/dL (2.2-4.2); Glucose 173 mg/dL (70-99); Lipase 47 U/L (13-75); Potassium 3.6 mmol/L (3.3-5.1)
[2024-10-25] MEDS: DiphenhydrAMINE 50 MG/ML Syringe IV (08:13)
[2024-10-25 08:23] LABS: Mucous, Urine 0 SEEN /hpf (<or=2+); Squamous Epithelial Cells - UA 0 SEEN /hpf (5-10)
[2024-10-25 08:25] LABS: Color, Urine Yellow (Yellow); Glucose, Dipstick Normal (Normal); Ketone-Dipstick Negative (Negative); Leukocyte Esterase-Dipstick 100 /ul (Negative); Nitrite-Dipstick Negative (Negative); Occult Blood-Urine 25 /ul (Negative); Protein-Dipstick 30 mg/dl (Negative); Specific Gravity, Urine 1.015 (1.002-1.030); Urine Bilirubin Dipstick Negative (Negative)
[2024-10-25 08:45] LABS: Red Blood Cells-Urine 0-5 SEEN /hpf (0-5)
[2024-10-25 09:00] VITALS: BP 176/96; PULSE 71; RESP 16; TEMP 36.8; O2SAT 97
[2024-10-25 10:00] VITALS: BP 175/90; PULSE 96; RESP 16; TEMP 36.7; O2SAT 96
[2024-10-25 10:30] VITALS: BP 177/90; PULSE 78; RESP 16; TEMP 36.8; O2SAT 95
== END 2024-10-25 10:31 | disposition home or self-care (01) ==
PROVIDERS: Emergency Provider Emergency Medicine; PCP Family Medicine; Visit Provider Emergency Medicine
DX: R10.84 Generalized abdominal pain (principal); C79.89 Secondary malignant neoplasm of other specified sites; N39.0 Urinary tract infection, site not specified; D84.9 Immunodeficiency, unspecified; Z86.718 Personal history of other venous thrombosis and embolism; Z79.01 Long term (current) use of anticoagulants; Z87.19 Personal history of other diseases of the digestive system
CPT/HCPCS: 74177; 80053; 81001; 83690; 85025; 96361; 96374; 96375; 99282; Q9967; A4216; J2405

== ENCOUNTER 2024-11-19 09:47 | Outpatient (CLI) | payer MEDICARE, OTHER, SELFPAY | END 2024-11-19 23:59 | disposition home or self-care (01) | LOC: MEDOUTP 09:48 | PROVIDERS: PCP Family Medicine; Referring Provider Internal Medicine Hematology & Oncology; Visit Provider Internal Medicine Hematology & Oncology | DX: Z45.2 Encounter for adjustment and management of vascular access device (principal); C79.2 Secondary malignant neoplasm of skin; C79.51 Secondary malignant neoplasm of bone; C50.811 Malignant neoplasm of overlapping sites of right female breast; Z17.0 Estrogen receptor positive status [ER+] | CPT/HCPCS: 96523; A4216 ==

== ENCOUNTER → 2024-11-26 | Outpatient (CLI) | payer MEDICARE, OTHER, SELFPAY | END | disposition home or self-care (01) | LOC: ONC 07:01 | PROVIDERS: PCP Family Medicine; Referring Provider Internal Medicine Hematology & Oncology; Visit Provider Internal Medicine Hematology & Oncology | DX: C50.811 Malignant neoplasm of overlapping sites of right female breast (principal); C79.2 Secondary malignant neoplasm of skin; C79.51 Secondary malignant neoplasm of bone; Z17.0 Estrogen receptor positive status [ER+] ==

== ENCOUNTER → 2024-12-10 | Outpatient (CLI) | payer MEDICARE, OTHER, SELFPAY ==
--- NOTE | 2024-12-10 08:00 | PET_ITS ---
PROCEDURE: PET/CT TUMOR BASE -THIGH SUBS 12/10/2024 REASON FOR EXAM: 69 y/o F with right breast cancer. TECHNIQUE: Procedure Code: [id number] Modality: PT Procedure: PET/CT TUMOR BASE -THIGH SUBS Following the intravenous administration of radionucleotide, image acquisition on a dedicated PET/CT unit was performed at one hour post injection. A preliminary CT study encompassing the Skull base, neck, chest, abdomen, pelvis, and proximal thighs was performed for purposes of attenuation correction and anatomic localization. The proximal thighs were also included. The patient's blood glucose level was 120 mg/dL (allowable range: 50-180 mg/dL). RADIOPHARMACEUTICAL: 12.48 mCi 18F-FDG (Fluorodeoxyglucose F18) IV was injected into he patient. RADIATION DOSE SUMMARY: Effective Dose: Approximately 7 mSv for a standard whole-body PET scan Organ Doses: Varies by organ, with higher doses typically to the bladder, liver, and brain COMPARISON: COMPARISON FROM CT, PET OR OTHER PERTINENT EXAMS: Abdomen and pelvis CT of 10/25/2024.. FINDINGS: Physiologic uptake: There may be expected metabolic uptake within the brain, tongue and floor of the mouth and larynx/vocal cords, heart, jackie (many normal individuals have hilar uptake in less than 3 nodes with mildly avid hilar nodes less than 2.7 SUV), liver and spleen, system, and GI tract and symmetric muscle uptake. FDG AVID AND NON-AVID LESIONS. Reported avid SUV values (g/mL*) are maximum SUV. NECK: There are no significant neck abnormalities. CHEST: Left subclavian central venous catheter with port, tip projecting of the distal SVC. Chest wall- There are no significant chest wall abnormalities. Axilla- There are no significant axillary abnormalities. Lung parenchyma- There are no significant lung parenchyma abnormalities. Mediastinum- There are no significant hilar or mediastinal adenopathy. Pleura- There are no significant pleural abnormalities. ABDOMEN: A moderate amount of ascites is seen. Cholelithiasis. Stomach- No significant abnormalities. Liver- A small hypermetabolic focus is seen of the subdiaphragmatic medial right hepatic lobe, without apparent CT correlate on the current noncontrasted study and also on the contrasted CT of 10/25/2024. SUV max is 5.5 Spleen- No significant abnormalities. Pancrease- No significant abnormalities. Kidneys- No significant abnormalities. Bowel- Normal bowel activity. Spine- No significant abnormalities. PELVIS: Bowel- Normal physiologic bowel activity is identified. Masses- There are no pelvic masses. Bones- With the use of bone window settings, there are no osteolytic or osteoblastic lesions. There are no FDG avid lesions within the visualized portion of the axial skeleton. PET/PET/CT Tumor Base -Thigh Subs IMPRESSION: FDG avid- Small hypermetabolic focus in the subdiaphragmatic medial right hepatic lobe, w ithout apparent CT correlate. This is nonspecific in appearance. Consider further evaluation with hepatic MRI, as differential d iagnosis includes solitary metastatic focus, as well as other benign and malignant processes. Other: Moderate amount of ascites. Cholelithiasis. Please note the low-dose CT scan was performed to facilitate PET image reconstr uction and anatomic localization and does not replace a diagnostic CT. Any diagnostic CT requested and performed at the time of the PET will be reported separately. Reading Location: [place] [id number]
== END | disposition home or self-care (01) ==
LOC: ONC 07:02
PROVIDERS: PCP Family Medicine; Referring Provider Internal Medicine Hematology & Oncology; Visit Provider Internal Medicine Hematology & Oncology
DX: C50.811 Malignant neoplasm of overlapping sites of right female breast (principal); C79.2 Secondary malignant neoplasm of skin; C79.51 Secondary malignant neoplasm of bone; Z17.0 Estrogen receptor positive status [ER+]
CPT/HCPCS: 78815; 96523; A9552; A4216